=== PATIENT | female | born 1945 | race Caucasian/White ===

== ENCOUNTER 2020-06-04 11:38 | Outpatient (CLI) | payer MEDICARE, SELFPAY ==
[2020-06-04 12:13] LABS: Basophils Percent Auto 0.4 % (0.2-1.2); Eosinophils Absolute Auto 0.1 K/mm3 (0-0.3); Eosinophils Percent Auto 1.3 % (0-4.4); Hemoglobin 14.1 g/dL (12.0-15.0); Immature Granulocyte Absolute 0.06 K/mm3 (0.00-0.031); Immature Granulocyte Percent A 0.7 % (0-0.5); Lymphocytes Absolute Auto 1.91 K/mm3 (0.9-3.2); Lymphocytes Percent Auto 20.8 % (18.3-44.2); Mean Corpuscular HGB Conc 33.6 g/dl (32-36); Mean Corpuscular Hemoglobin 28.5 pg (26-34); Mean Platelet Volume 9.8 fl (7.4-10.4); Monocytes Absolute Auto 0.7 K/mm3 (0.1-0.6); Monocytes Percent Auto 7.1 % (2.6-8.5); Neutrophils Absolute Auto 6.4 K/mm3 (1.3-6.7); Neutrophils Percent Auto 69.7 % (45.5-73.1); Platelet Count Result 264 k/mm3 (150-375); Red Blood Count 4.94 M/mm3 (4.2-5.4); Red Cell Distribution Width 13.1 % (11.5-14.5); White Blood Count 9.2 K/mm3 (4.5-10.0)
[2020-06-04 12:28] LABS: Alanine Aminotransferase 17 U/L (4-35); Albumin Level 4.3 g/dL (3.5-5.1); Alkaline Phosphatase 59 U/L (38-126); Anion Gap 8 mmol/L (8-16); Aspartate Amino Transferase 19 U/L (14-36); Bilirubin,Total 0.2 mg/dL (0.2-1.3); Blood Urea Nitrogen 22 mg/dL (7-17); Calcium 8.9 mg/dL (8.4-10.2); Carbon Dioxide 34 mmol/L (22-30); Chloride 94 mmol/L (98-107); Estimated Glomerular Filt Rate > 60; Glucose 92 mg/dL (65-105); Hemoglobin A1C 5.5 % (<5.7); Sodium 136 mmol/L (137-145)
== END 2020-06-04 11:39 | disposition home or self-care (01) ==
LOC: ANHLAB 11:41
PROVIDERS: PCP Family Medicine; Visit Provider Physician Assistant
DX: R73.9 Hyperglycemia, unspecified (principal); R53.83 Other fatigue
CPT/HCPCS: 36415; 80053; 83036; 84443; 85025

== ENCOUNTER 2020-07-13 08:31 | Outpatient (CLI) | payer MEDICARE, OTHER, SELFPAY ==
[2020-07-13 09:12] LABS: Cholesterol 191 mg/dL (0-200); HDL Direct 39 mg/dL; Triglycerides 269 mg/dL (<150)
[2020-07-13 09:24] LABS: LDL Cholesterol Direct 115 mg/dL
[2020-07-13 10:19] LABS: Folic Acid 9.4 ng/mL (2.76->20)
== END 2020-07-13 08:32 | disposition home or self-care (01) ==
PROVIDERS: PCP Family Medicine; Visit Provider Family Medicine
DX: E03.9 Hypothyroidism, unspecified (principal); R53.83 Other fatigue; E78.2 Mixed hyperlipidemia
CPT/HCPCS: 36415; 80061; 82607; 82746; 84443

== ENCOUNTER 2020-08-29 13:32 | Outpatient (CLI) | payer MEDICARE, OTHER, SELFPAY | END 2020-08-29 13:33 | disposition home or self-care (01) | PROVIDERS: PCP Family Medicine; Visit Provider Family Medicine | DX: E03.9 Hypothyroidism, unspecified (principal) | CPT/HCPCS: 36415; 84443 ==

== ENCOUNTER 2020-10-03 15:02 | Outpatient (CLI) | payer MEDICARE, OTHER, SELFPAY ==
[2020-10-03 16:09] LABS: Thyroid Stimulating Hormone 0.648 uIU/mL (0.465-4.680)
== END 2020-10-03 15:03 | disposition home or self-care (01) ==
LOC: ANHLAB 15:04
PROVIDERS: PCP Family Medicine; Visit Provider Family Medicine
DX: E03.9 Hypothyroidism, unspecified (principal)
CPT/HCPCS: 36415; 84443

== ENCOUNTER 2021-01-09 11:18 | Outpatient (CLI) | payer MEDICARE, OTHER, SELFPAY ==
--- NOTE | ~2021-01-09 | XR_ITS ---
XR lumbar spine 2-3V DATE: 01/09/2021 11:38 INDICATION: Chronic low back pain TECHNIQUE: AP, lateral, coned lateral lumbosacral views COMPARISON: 08/15/2016 lumbar spine FINDINGS: Multiple calcified faceted gallstones are noted. There is mild dextroscoliosis of the lumbar spine. There is moderate to moderately severe degenerative disc disease of the lumbar spine, most pronounced on the left at L3-4. No fracture or bone destruction or spondylolisthesis. The lumbar pedicles are intact. The sacroiliac joints are intact. IMPRESSION: Mild dextroscoliosis Multilevel degenerative disc disease Cholelithiasis Reviewed, dictated and finalized at location A.
== END 2021-01-09 11:19 | disposition home or self-care (01) ==
LOC: ANHIMG 11:25
PROVIDERS: PCP Family Medicine; Visit Provider Family Medicine
DX: M51.36 Other intervertebral disc degeneration, lumbar region (principal); K80.20 Calculus of gallbladder without cholecystitis without obstruction
CPT/HCPCS: 72100

== ENCOUNTER 2021-01-14 09:23 | Outpatient (CLI) | payer MEDICARE, OTHER, SELFPAY ==
[2021-01-14 10:00] LABS: Hematocrit 44.3 % (37.0-47.0); Hemoglobin 14.7 g/dL (12.0-15.0); Mean Corpuscular HGB Conc 33.2 g/dl (32-36); Mean Corpuscular Volume 87.4 fl (80-100); Mean Platelet Volume 9.9 fl (7.4-10.4); Platelet Count Result 273 k/mm3 (150-375); Red Blood Count 5.07 M/mm3 (4.2-5.4); Red Cell Distribution Width 13.1 % (11.5-14.5); White Blood Count 5.9 K/mm3 (4.5-10.0)
[2021-01-14 10:05] LABS: Add Urine Microscopic? YES; Appearance Urine Clear (Clear); Bilirubin Urine Negative (Negative); Blood Urine Negative (Negative); Color Urine Yellow (Yellow); Glucose Urine UA Negative (Negative); Ketones Urine Negative (Negative); Leukocyte Esterase Ur 3+ LEU/UL (NEGATIVE); Mucus Urine Rare /lpf; Nitrate Urine Negative (Negative); Protein Urine Negative (Negative); RBC Urine 0-2 /hpf (0-2); Specific Grav Ur 1.019 (1.001-1.035); Squamous Epithelial Cell Urine Few /hpf (Few); Urobilinogen Urine Negative mg/dL (<2.0)
[2021-01-14 10:15] LABS: Alanine Aminotransferase 20 U/L (4-35); Albumin Level 4.6 g/dL (3.5-5.1); Alkaline Phosphatase 50 U/L (38-126); Anion Gap 8 mmol/L (8-16); Aspartate Amino Transferase 23 U/L (14-36); Bilirubin,Total 0.4 mg/dL (0.2-1.3); Blood Urea Nitrogen 21 mg/dL (7-17); Calcium 9.6 mg/dL (8.4-10.2); Carbon Dioxide 32 mmol/L (22-30); Chloride 99 mmol/L (98-107); Cholesterol 208 mg/dL (0-200); Estimated Glomerular Filt Rate 49; Glucose 96 mg/dL (65-105); HDL Direct 41 mg/dL; Potassium 3.8 mmol/L (3.4-5.0); Sodium 139 mmol/L (137-145); Triglycerides 167 mg/dL (<150)
[2021-01-14 10:25] LABS: LDL Cholesterol Direct 128 mg/dL
[2021-01-14 11:20] LABS: Folic Acid 16.2 ng/mL (2.76->20)
== END 2021-01-14 09:24 | disposition home or self-care (01) ==
LOC: ANHLAB 09:32
PROVIDERS: PCP Family Medicine; Visit Provider Family Medicine
DX: E03.9 Hypothyroidism, unspecified (principal); E78.00 Pure hypercholesterolemia, unspecified; I10 Essential (primary) hypertension; R53.83 Other fatigue
CPT/HCPCS: 36415; 80053; 80061; 81001; 82607; 82746; 84443; 85027

== ENCOUNTER 2021-02-28 15:44 | Outpatient (CLI) | payer MEDICARE, OTHER, SELFPAY ==
[2021-02-28 16:41] LABS: Add Urine Microscopic? NO; Appearance Urine Clear (Clear); Bilirubin Urine Negative (Negative); Blood Urine Negative (Negative); Color Urine Yellow (Yellow); Glucose Urine UA Negative (Negative); Ketones Urine Negative (Negative); Leukocyte Esterase Ur Negative LEU/UL (NEGATIVE); Nitrate Urine Negative (Negative); Protein Urine Negative (Negative); Specific Grav Ur 1.009 (1.001-1.035); Urobilinogen Urine Negative mg/dL (<2.0)
[2021-02-28 16:54] LABS: Alanine Aminotransferase 19 U/L (4-35); Albumin Level 4.5 g/dL (3.5-5.1); Alkaline Phosphatase 54 U/L (38-126); Anion Gap 7 mmol/L (8-16); Aspartate Amino Transferase 31 U/L (14-36); Bilirubin,Total 0.4 mg/dL (0.2-1.3); Blood Urea Nitrogen 17 mg/dL (7-17); Calcium 9.4 mg/dL (8.4-10.2); Carbon Dioxide 29 mmol/L (22-30); Chloride 105 mmol/L (98-107); Estimated Glomerular Filt Rate > 60; Glucose 92 mg/dL (65-105); Potassium 4.5 mmol/L (3.4-5.0); Sodium 141 mmol/L (137-145)
== END 2021-02-28 15:45 | disposition home or self-care (01) ==
LOC: ANHLAB 15:47
PROVIDERS: PCP Family Medicine; Visit Provider Nurse Practitioner Family
DX: N39.0 Urinary tract infection, site not specified (principal); R94.4 Abnormal results of kidney function studies
CPT/HCPCS: 36415; 80053; 81003; 87086

== ENCOUNTER → 2021-03-27 08:01 | Outpatient (CLI) | payer MEDICARE, OTHER, SELFPAY ==
--- NOTE | ~2021-03-27 | US_ITS ---
EXAMINATION: US right upper quadrant EXAM DATE: 03/27/2021 08:41 INDICATION: R10.11 - Right upper quadrant pain . TECHNIQUE: Multiple grayscale and Doppler images of the abdomen right upper quadrant were obtained (b y a technologist who performed the scan) and subsequently reviewed. There is no prior study for serene knapp. FINDINGS: The pancreatic head and body are normal in appearance. The pancreatic tail is not visualized. Mildl y echogenic liver parenchyma, hepatic steatosis. There are no focal liver lesions identified. Ther e is no evidence of intrahepatic biliary duct dilation. Portal venous flow was seen in the hepatoped al, normal direction and has normal Doppler waveform. No right-sided hydronephrosis. Common bile duct measures 4 mm, which is normal. The gallbladder wall is normal in thickness, with ex pected amount of distention. No sonographic evidence of pericholecystic fluid. There is cholelithia sis. Technologist performing exam reports patient did not demonstrate sonographic Alegre's sign. P trent note that this sign is less reliable in patients who have received pain medication. IMPRESSION: 1. Mildly echogenic liver, hepatic steatosis. 2. Cholelithiasis. Reviewed, dictated and finalized at location B.
== END ==
PROVIDERS: PCP Family Medicine; Visit Provider Nurse Practitioner Family
DX: R10.11 Right upper quadrant pain (principal); K80.20 Calculus of gallbladder without cholecystitis without obstruction; K76.0 Fatty (change of) liver, not elsewhere classified
CPT/HCPCS: 76705

== ENCOUNTER 2021-07-03 15:11 | Outpatient (CLI) | payer MEDICARE, OTHER, SELFPAY ==
[2021-07-03 16:42] LABS: Alanine Aminotransferase 23 U/L (4-35); Albumin Level 4.8 g/dL (3.5-5.1); Alkaline Phosphatase 62 U/L (38-126); Anion Gap 11 mmol/L (8-16); Aspartate Amino Transferase 25 U/L (14-36); Bilirubin,Total 0.5 mg/dL (0.2-1.3); Blood Urea Nitrogen 14 mg/dL (7-17); Calcium 9.5 mg/dL (8.4-10.2); Carbon Dioxide 28 mmol/L (22-30); Chloride 100 mmol/L (98-107); Estimated Glomerular Filt Rate > 60; Glucose 88 mg/dL (65-110); Potassium 4.5 mmol/L (3.4-5.0); Sodium 139 mmol/L (137-145)
== END 2021-07-03 15:12 | disposition home or self-care (01) ==
LOC: ANHLAB 15:12
PROVIDERS: PCP Family Medicine; Visit Provider Family Medicine
DX: E78.00 Pure hypercholesterolemia, unspecified (principal); E03.9 Hypothyroidism, unspecified; I10 Essential (primary) hypertension
CPT/HCPCS: 36415; 80053; 84443

== ENCOUNTER 2021-08-09 09:25 | Outpatient (CLI) | payer MEDICARE, OTHER, SELFPAY | END 2021-08-09 09:26 | disposition home or self-care (01) | PROVIDERS: PCP Family Medicine; Visit Provider Physician Assistant | DX: E03.9 Hypothyroidism, unspecified (principal) | CPT/HCPCS: 36415; 84443 ==

== ENCOUNTER → 2021-11-05 14:11 | Outpatient (CLI) | payer MEDICARE, OTHER, SELFPAY ==
--- NOTE | ~2021-11-05 | MR_ITS ---
EXAMINATION: MR lumbar spine wo con DATE: 11/05/2021 15:04 INDICATION: Lumbar spondylosis. TECHNIQUE: Magnetic resonance imaging (MRI) of the lumbar spine was performed without intravenous con trast. Sequences included sagittal T2-weighted FSE, sagittal T2-weighted FS FSE, sagittal T1-weighted FSE, and axial T2-weighted FSE. COMPARISON: Lumbar spine MRI 02/25/2016 FINDINGS: There is 5 degrees dextrocurvature of lumbar spine. There are Schmorl's nodes at most level s. There is moderately decreased disc height at L2-L3, L3-L4, and L5-S1 and mildly decreased disc hei ght at L1-L2 and L4-L5 with endplate remodeling. The distal spinal cord signal intensity is normal. T he conus medullaris is at L1. The following disc levels are specifically discussed: L1-L2: The disc is bulging. There is mild right facet joint osteoarthritis. There is mild right neura l foraminal stenosis. There is mild central canal stenosis. L2-L3: The disc is bulging and has an annular fissure. There is moderate right and mild left facet beatriz int osteoarthritis. There is mild bilateral neural foraminal stenosis. There is mild central canal st enosis. L3-L4: The disc is bulging and has an annular fissure. There is severe bilateral facet joint osteoart hritis. There is mild right and moderate left neural foraminal stenosis. There is mild central canal stenosis. L4-L5: The disc is bulging and has an annular fissure. There is moderate bilateral facet joint osteoa rthritis. There is moderate bilateral neural foraminal stenosis. There is mild central canal stenosis . L5-S1: The disc is bulging and has an annular fissure. There is severe right and moderate left facet joint osteoarthritis. There is mild bilateral neural foraminal stenosis. There is mild central canal stenosis. IMPRESSION: 1. Moderate lumbar spondylosis, worsened from 02/25/2016. Reviewed, dictated and finalized at location A. TENDER
== END ==
PROVIDERS: Visit Provider Nurse Practitioner Adult Health
DX: M47.816 Spondylosis without myelopathy or radiculopathy, lumbar region (principal)
CPT/HCPCS: 72148

== ENCOUNTER 2022-01-08 08:04 | Outpatient (CLI) | payer MEDICARE, OTHER, SELFPAY ==
[2022-01-08 08:36] LABS: Hematocrit 43.3 % (37.0-47.0); Hemoglobin 14.3 g/dL (12.0-15.0); Immature Granulocyte Percent A 0.4 % (0-0.5); Mean Corpuscular Hemoglobin 28.9 pg (26-34); Mean Corpuscular Volume 87.7 fl (80-100); Mean Platelet Volume 9.8 fl (7.4-10.4); Platelet Count Result 260 k/mm3 (150-375); Red Blood Count 4.94 M/mm3 (4.2-5.4); Red Cell Distribution Width 13.2 % (11.5-14.5)
[2022-01-08 08:37] LABS: Basophils Absolute Auto 0.1 K/mm3 (0.0-0.1); Basophils Percent Auto 0.9 % (0.2-1.2); Eosinophils Absolute Auto 0.2 K/mm3 (0-0.3); Eosinophils Percent Auto 2.7 % (0-4.4); Immature Granulocyte Absolute 0.03 K/mm3 (0.00-0.031); Lymphocytes Absolute Auto 2.15 K/mm3 (0.9-3.2); Lymphocytes Percent Auto 30.7 % (18.3-44.2); Monocytes Absolute Auto 0.7 K/mm3 (0.1-0.6); Neutrophils Absolute Auto 3.9 K/mm3 (1.3-6.7); Neutrophils Percent Auto 55.3 % (45.5-73.1)
[2022-01-08 08:39] LABS: Appearance Urine Clear (Clear); Bilirubin Urine Negative (Negative); Blood Urine Negative (Negative); Color Urine Yellow (Yellow); Glucose Urine UA Negative (Negative); Ketones Urine Negative (Negative); Leukocyte Esterase Ur 1+ LEU/UL (NEGATIVE); Nitrate Urine Negative (Negative); Protein Urine Negative (Negative); Urobilinogen Urine 0.2 mg/dL (<2.0); pH Urine 6.5 (5.0-9.0)
[2022-01-08 08:48] LABS: Bacteria Urine Trace /hpf; Mucus Urine Rare /lpf; RBC Urine 0-2 /hpf (0-2); Squamous Epithelial Cell Urine Occasional /hpf (Few); WBC Urine 16-20 /hpf (0-3)
[2022-01-08 08:48] LABS: Alanine Aminotransferase 34 U/L (6-35); Albumin Level 4.4 g/dL (3.5-5.1); Alkaline Phosphatase 53 U/L (38-126); Anion Gap 7 mmol/L (8-16); Aspartate Amino Transferase 34 U/L (14-36); Bilirubin,Total 0.3 mg/dL (0.2-1.3); Blood Urea Nitrogen 15 mg/dL (7-17); Calcium 8.8 mg/dL (8.4-10.2); Carbon Dioxide 31 mmol/L (22-30); Chloride 101 mmol/L (98-107); Cholesterol 217 mg/dL (0-200); Estimated Glomerular Filt Rate 54; Glucose 99 mg/dL (65-110); HDL Direct 39 mg/dL; Potassium 3.6 mmol/L (3.4-5.0); Sodium 139 mmol/L (137-145); Triglycerides 253 mg/dL (<150)
[2022-01-08 08:50] LABS: Add Urine Microscopic? YES
[2022-01-08 08:59] LABS: LDL Cholesterol Direct 118 mg/dL
== END 2022-01-08 08:05 | disposition home or self-care (01) ==
PROVIDERS: PCP Family Medicine; Referring Provider Internal Medicine Endocrinology, Diabetes & Metabolism; Visit Provider Nurse Practitioner Family
DX: E03.9 Hypothyroidism, unspecified (principal); E78.00 Pure hypercholesterolemia, unspecified; E78.2 Mixed hyperlipidemia; I10 Essential (primary) hypertension; K21.9 Gastro-esophageal reflux disease without esophagitis; N39.0 Urinary tract infection, site not specified
CPT/HCPCS: 36415; 80053; 80061; 81001; 84443; 85025

== ENCOUNTER 2022-02-14 14:07 | Emergency (ER) | payer MEDICARE, OTHER, SELFPAY ==
[2022-02-14] VITALS (17 sets, daily range): BP systolic 104–137; BP diastolic 59–74; PULSE 61–77; RESP 16–23; TEMP 36.1; O2SAT 93–97
--- NOTE | ~2022-02-14 | XR_ITS ---
EXAMINATION: XR chest 2V Exam Date/Time: 02/14/2022 14:35 CDT HISTORY: NAUSEA VOMITING FOR 1 WEEK Comparison: 10/26/2018. RESULT: Lines, tubes, and devices: None. Lungs and pleura: Streaky opacities in the left lung base. Bibasilar scar. No effusion. Senescent ch anges. Cardiomediastinal silhouette: Stable cardiomediastinal silhouette. Other: No acute osseous or upper abdominal finding. IMPRESSION: Left basilar opacities most likely represent atelectasis. Infection not excluded. Reviewed, dictated and finalized at location K. IMPRESSION: Left basilar opacities most likely represent atelectasis. Infection not exclude d.
--- NOTE | 2022-02-14 14:10 | ECG_ITS ---
Measurements Intervals [place] Rate: 75 P: 30 TX: 179 QRS: 45 QRSD: 103 T: 68 QT: 426 QTc: 476 Interpretive Statements SINUS RHYTHM INCOMPLETE RIGHT BUNDLE BRANCH BLOCK [90+ ms QRS DURATION, TERMINAL R IN V1/V2, 40+ ms S IN I/aVL/V4/V5/V6] ST DEVIATION AND MODERATE T-WAVE ABNORMALITY, CONSIDER ANTEROLATERAL ISCHEMIA [-0.1+ mV T WAVE IN V3-V6] NO PREVIOUS ECG AVAILABLE FOR COMPARISON Electronically Signed On 02-14-2022 14:46:45 CDT by Jose Nielsen M.D.
[2022-02-14 14:31] LABS: Basophils Percent Auto 0.3 % (0.2-1.2); Hematocrit 48.8 % (37.0-47.0); Hemoglobin 16.2 g/dL (12.0-15.0); Immature Granulocyte Absolute 0.04 K/mm3 (0.00-0.031); Immature Granulocyte Percent A 0.6 % (0-0.5); Lymphocytes Absolute Auto 0.73 K/mm3 (0.9-3.2); Lymphocytes Percent Auto 11.1 % (18.3-44.2); Mean Corpuscular HGB Conc 33.2 g/dl (32-36); Mean Corpuscular Hemoglobin 28.8 pg (26-34); Mean Corpuscular Volume 86.8 fl (80-100); Monocytes Percent Auto 14.6 % (2.6-8.5); Neutrophils Absolute Auto 4.8 K/mm3 (1.3-6.7); Neutrophils Percent Auto 73.4 % (45.5-73.1); Platelet Count Result 252 k/mm3 (150-375); Red Blood Count 5.62 M/mm3 (4.2-5.4); Red Cell Distribution Width 13.2 % (11.5-14.5); White Blood Count 6.6 K/mm3 (4.5-10.0)
[2022-02-14 14:42] LABS: Alanine Aminotransferase 54 U/L (6-35); Alkaline Phosphatase 53 U/L (38-126); Anion Gap 10 mmol/L (8-16); Aspartate Amino Transferase 57 U/L (14-36); Bilirubin,Total 0.3 mg/dL (0.2-1.3); Blood Urea Nitrogen 25 mg/dL (7-17); Calcium 8.5 mg/dL (8.4-10.2); Carbon Dioxide 28 mmol/L (22-30); Chloride 94 mmol/L (98-107); Estimated CRCL calculation 35 ml/min; Estimated Glomerular Filt Rate 40; Glucose 109 mg/dL (65-110); Lipase 310 U/L (23-300); Potassium 3.6 mmol/L (3.4-5.0); Sodium 132 mmol/L (137-145)
[2022-02-14 15:59] LABS: Appearance Urine Cloudy (Clear); Bilirubin Urine 2+ (Negative); Color Urine Yellow (Yellow); Glucose Urine UA Negative (Negative); Ketones Urine Trace mg/dL (Negative); Leukocyte Esterase Ur Trace LEU/UL (Negative); Nitrate Urine Negative (Negative); Protein Urine 2+ mg/dL (Negative); Specific Grav Ur 1.025 (1.001-1.035); pH Urine 5.5 (5.0-9.0)
[2022-02-14 16:00] LABS: Add Urine Microscopic? YES; Blood Urine Trace-Intact (Negative)
[2022-02-14 16:05] LABS: Bacteria Urine Trace /hpf; Hyaline Casts Urine 50+ /lpf; Mucus Urine Heavy /lpf; Squamous Epithelial Cell Urine Many /hpf (Few); WBC Urine 31-50 /hpf
[2022-02-14] MEDS: SODIUM CHLORIDE 0.9% IV 1,000 ML 999 ML IV CONT (16:14)
--- NOTE | 2022-02-14 17:02 | ED.NAVMDI ---
HPI - Nausea/Vomiting/Diarrhea General Chief complaint: Nausea/Vomiting/Diarrhea Stated complaint: Nausea/weakness/diarrhea Time Seen by Provider: 02/14/22 15:30 History of Present Illness HPI Narrative: Patient is a 76-year-old female who presents ER with fatigue and weakness. Patient was exposed to COVID on 02/08/2022. She began to feel symptomatic on 02/10/2022. And tested positive for COVID on 02/12/2022. She has been feeling fatigued. She also has had some nausea and vomiting today. No runny nose or sore throat or cough. She is feeling fatigued. She has had some diarrhea as well. Has been taking antiviral medication for her COVID. Related Data Home Medications Medication Instructions Recorded Confirmed cholecalciferol (vitamin D3) 125 125 mcg PO DAILY 01/09/21 07/03/21 mcg (5,000 unit) capsule Allergies Allergy/AdvReac Type Severity Reaction Status Date / Time prednisone Allergy Unknown Redness of Verified 01/15/22 10:23 Skin codeine AdvReac Unknown Nausea and Verified 01/15/22 10:23 Vomiting PMFSH Past Medical History Medical History Anxiety Arthritis GERD (gastroesophageal reflux disease) Hemorrhoids Hypertension Medial epicondylitis of right elbow Vertigo Surgical History Surgical History History of cardiac radiofrequency ablation Status post de Quervain's release surgery Status post hysterectomy Family History Family History Father Hypertension Family history of coronary artery disease Mother Hypertension Cerebrovascular accident Family history of diabetes mellitus in first degree relative Family history of coronary artery disease Sibling Family history of lung cancer Cerebrovascular accident Other Diabetes mellitus Family history of arthritis Social History Social History Smoking packs per day: 0.25 Smoking cigarettes per day: 5.0 Years smoked: 1 Smoking pack-years: 0.25 Smoking status: Former smoker Tobacco type: cigarettes Second hand tobacco smoke exposure: No Smoking end date: 08/31/79 Alcohol intake: never Substance use: never Substance use type: does not use Gender identity (if verbalized by the patient): Female Sexual Orientation (if Verbalized by the Patient): Straight or Heterosexual Exam Narrative: GENERAL: Well-appearing, well-nourished, and in no acute distress. HEAD: Normocephalic, atraumatic. CHEST: Clear to auscultation. No respiratory distress. HEART: Regular rate and rhythm. Normal peripheral pulses. ABDOMEN: Soft, nontender, nondistended. EXTREMITIES: Normal range of motion. No edema. SKIN: Warm, dry, no rash. NEURO: Alert and oriented x3. PSYCH: Normal mood and affect. Course Course Emergency Course: Patient hydrated. Feels improved. Discharge home with antiemetics. During certainly has appearance of contamination but given her fatigue this could be contributing to her illness. Will prescribe cephalexin for home. Vital Signs Vital signs: Vital Signs Temperature 97 F L 02/14/22 14:12 Pulse Rate 76 02/14/22 14:12 Respiratory Rate 16 02/14/22 14:12 Blood Pressure 104/59 L 02/14/22 14:12 Pulse Oximetry 97 02/14/22 14:12 Oxygen Delivery Room Air 02/14/22 14:12 Temperature 97 F L 02/14/22 14:12 Pulse Rate 61 02/14/22 16:45 Respiratory Rate 20 02/14/22 16:45 Blood Pressure 132/65 02/14/22 16:31 Pulse Oximetry 95 02/14/22 16:02 Oxygen Delivery Room Air 02/14/22 14:12 MDM - Nausea/Vomiting/Diarrhea Lab Data Result diagrams: 02/14/22 14:25 02/14/22 14:25 Labs: Lab Results 02/14/22 02/14/22 02/14/22 Range/Units 14:25 14:25 15:48 WBC 6.6 (4.5-10.0) K/mm3 RBC 5.62 H (4.2-5.4) M/mm3 H
== END 2022-02-14 17:34 | disposition home or self-care (01) ==
PROVIDERS: Emergency Provider Emergency Medicine; PCP Family Medicine
DX: U07.1 COVID-19 (principal); N39.0 Urinary tract infection, site not specified; E86.0 Dehydration; I10 Essential (primary) hypertension; M19.90 Unspecified osteoarthritis, unspecified site; K21.9 Gastro-esophageal reflux disease without esophagitis; Z87.891 Personal history of nicotine dependence; I45.10 Unspecified right bundle-branch block; R94.31 Abnormal electrocardiogram [ECG] [EKG]; R91.8 Other nonspecific abnormal finding of lung field
CPT/HCPCS: 36415; 71046; 80053; 81001; 83690; 85025; 87086; 87088; 93005; 96360; 99283; J7030

== ENCOUNTER 2022-02-25 11:45 | Outpatient (CLI) | payer MEDICARE, OTHER, SELFPAY ==
[2022-02-25 12:30] LABS: Appearance Urine Clear (Clear); Bilirubin Urine Negative (Negative); Blood Urine Negative (Negative); Color Urine Yellow (Yellow); Glucose Urine UA Negative (Negative); Ketones Urine Negative (Negative); Leukocyte Esterase Ur Negative LEU/UL (NEGATIVE); Nitrate Urine Negative (Negative); Protein Urine Negative (Negative); Specific Grav Ur 1.015 (1.001-1.035); Urobilinogen Urine 0.2 mg/dL (<2.0); pH Urine 7.5 (5.0-9.0)
[2022-02-25 12:39] LABS: Add Urine Microscopic? NO
== END 2022-02-25 11:46 | disposition home or self-care (01) ==
PROVIDERS: PCP Family Medicine; Visit Provider Nurse Practitioner Family
DX: N39.0 Urinary tract infection, site not specified (principal)
CPT/HCPCS: 81003; 87086

== ENCOUNTER 2022-06-11 11:55 | Outpatient (CLI) | payer MEDICARE, OTHER, SELFPAY ==
[2022-06-11 12:32] LABS: Alanine Aminotransferase 25 U/L (6-35); Albumin Level 4.4 g/dL (3.5-5.1); Alkaline Phosphatase 54 U/L (38-126); Anion Gap 11 mmol/L (8-16); Aspartate Amino Transferase 23 U/L (14-36); Bilirubin,Total 0.2 mg/dL (0.2-1.3); Blood Urea Nitrogen 14 mg/dL (7-17); Calcium 9.3 mg/dL (8.4-10.2); Carbon Dioxide 27 mmol/L (22-30); Chloride 101 mmol/L (98-107); Estimated Glomerular Filt Rate > 60; Glucose 111 mg/dL (65-110); Potassium 3.6 mmol/L (3.4-5.0); Sodium 139 mmol/L (137-145)
== END 2022-06-11 11:56 | disposition home or self-care (01) ==
PROVIDERS: PCP Family Medicine; Visit Provider Physician Assistant
DX: I10 Essential (primary) hypertension (principal)
CPT/HCPCS: 36415; 80053

== ENCOUNTER 2022-06-30 14:52 | Outpatient (CLI) | payer MEDICARE, OTHER, SELFPAY ==
[2022-06-30 16:01] LABS: Alanine Aminotransferase 23 U/L (6-35); Albumin Level 4.4 g/dL (3.5-5.1); Alkaline Phosphatase 54 U/L (38-126); Anion Gap 7 mmol/L (8-16); Aspartate Amino Transferase 22 U/L (14-36); Bilirubin,Total 0.3 mg/dL (0.2-1.3); Blood Urea Nitrogen 14 mg/dL (7-17); Carbon Dioxide 32 mmol/L (22-30); Chloride 99 mmol/L (98-107); Estimated Glomerular Filt Rate > 60; Glucose 98 mg/dL (65-110); Potassium 3.9 mmol/L (3.4-5.0); Sodium 138 mmol/L (137-145)
[2022-06-30 17:06] LABS: Folic Acid 13.9 ng/mL (2.76->20)
== END 2022-06-30 14:53 | disposition home or self-care (01) ==
PROVIDERS: PCP Family Medicine; Visit Provider Family Medicine
DX: R53.83 Other fatigue (principal); E78.00 Pure hypercholesterolemia, unspecified
CPT/HCPCS: 36415; 80053; 82607; 82746; 84443

== ENCOUNTER 2022-12-16 09:36 | Outpatient (CLI) | payer MEDICARE, OTHER, SELFPAY ==
[2022-12-16 10:36] LABS: Alanine Aminotransferase 26 U/L (6-35); Albumin Level 4.7 g/dL (3.5-5.1); Alkaline Phosphatase 42 U/L (38-126); Anion Gap 7 mmol/L (8-16); Aspartate Amino Transferase 25 U/L (14-36); Bilirubin,Total 0.6 mg/dL (0.2-1.3); Blood Urea Nitrogen 19 mg/dL (7-17); Calcium 9.4 mg/dL (8.4-10.2); Carbon Dioxide 32 mmol/L (22-30); Chloride 100 mmol/L (98-107); Estimated Glomerular Filt Rate > 60; Glucose 97 mg/dL (65-110); Sodium 139 mmol/L (137-145)
[2022-12-16 11:08] LABS: Thyroid Stimulating Hormone 0.327 uIU/mL (0.465-4.680)
== END 2022-12-16 09:37 | disposition home or self-care (01) ==
PROVIDERS: PCP Family Medicine; Visit Provider Family Medicine
DX: E03.9 Hypothyroidism, unspecified (principal); I10 Essential (primary) hypertension; E78.00 Pure hypercholesterolemia, unspecified
CPT/HCPCS: 36415; 80053; 84443

== ENCOUNTER 2023-01-27 12:11 | Outpatient (CLI) | payer MEDICARE, OTHER, SELFPAY | END 2023-01-27 12:12 | disposition home or self-care (01) | PROVIDERS: PCP Family Medicine; Visit Provider Family Medicine | DX: E78.00 Pure hypercholesterolemia, unspecified (principal); E03.9 Hypothyroidism, unspecified | CPT/HCPCS: 36415; 84443 ==

== ENCOUNTER 2023-03-19 11:14 | Outpatient (CLI) | payer MEDICARE, OTHER, SELFPAY ==
[2023-03-19 12:20] LABS: Hematocrit 45.3 % (37.0-47.0); Hemoglobin 14.7 g/dL (12.0-15.0); Mean Corpuscular HGB Conc 32.5 g/dl (32-36); Mean Corpuscular Hemoglobin 29.1 pg (26-34); Mean Corpuscular Volume 89.5 fl (80-100); Mean Platelet Volume 9.9 fl (7.4-10.4); Platelet Count Result 274 k/mm3 (150-375); Red Blood Count 5.06 M/mm3 (4.2-5.4); Red Cell Distribution Width 13.3 % (11.5-14.5); White Blood Count 7.3 K/mm3 (4.5-10.0)
[2023-03-19 12:29] LABS: Alanine Aminotransferase 25 U/L (6-35); Albumin Level 4.4 g/dL (3.5-5.1); Alkaline Phosphatase 43 U/L (38-126); Anion Gap 10 mmol/L (8-16); Aspartate Amino Transferase 22 U/L (14-36); Bilirubin,Total 0.3 mg/dL (0.2-1.3); Blood Urea Nitrogen 23 mg/dL (7-17); Calcium 9.1 mg/dL (8.4-10.2); Carbon Dioxide 29 mmol/L (22-30); Chloride 101 mmol/L (98-107); Cholesterol 196 mg/dL (0-200); Estimated Glomerular Filt Rate > 60; Glucose 93 mg/dL (65-110); HDL Direct 40 mg/dL; Potassium 3.9 mmol/L (3.4-5.0); Sodium 140 mmol/L (137-145); Triglycerides 180 mg/dL (<150)
[2023-03-19 12:40] LABS: LDL Cholesterol Direct 111 mg/dL
[2023-03-19 12:58] LABS: Thyroid Stimulating Hormone 0.887 uIU/mL (0.465-4.680)
[2023-03-19 21:27] LABS: Hemoglobin A1C 5.8 % (<5.7)
== END 2023-03-19 11:15 | disposition home or self-care (01) ==
PROVIDERS: PCP Family Medicine; Visit Provider Family Medicine
DX: E78.00 Pure hypercholesterolemia, unspecified (principal); I10 Essential (primary) hypertension; R53.83 Other fatigue; R73.01 Impaired fasting glucose; E03.9 Hypothyroidism, unspecified
CPT/HCPCS: 36415; 80053; 80061; 83036; 84443; 85027

== ENCOUNTER 2023-04-23 14:51 | Outpatient (CLI) | payer MEDICARE, OTHER, SELFPAY ==
--- NOTE | ~2023-04-23 | MM_ITS ---
EXAMINATION: MM screening nannette BI w [place] HISTORY: Screening mammogram TECHNIQUE: Craniocaudal and mediolateral oblique 3-D tomosynthesis images were obtained and synthetic 2-D images were generated. CAD analysis was submitted and interpreted. COMPARISON: 09/01/2019 bilateral screening mammogram examination BREAST PARENCHYMAL COMPOSITION: There are scattered areas of fibroglandular density. FINDINGS: There is no evidence of suspicious mass, calcification, or architectural distortion to sugg est malignancy in either breast. There has been no suspicious interval change. IMPRESSION: 1. No mammographic evidence of malignancy. 2. Recommend routine screening mammography in one year. BI-RADS Category 1: Negative Reviewed, dictated and finalized at location A.
--- NOTE | ~2023-04-23 | DEXA_ITS ---
Bone Density Report Name: AICHA DASILVA Age: 77 Sex: Female Ethnicity: White Date of : 1945 Indication: postmenopausal; screening for osteoporosis; height loss; cancer; hysterectomy; Referring Provider: ALFRED CRUZ Study: Bone densitometry was performed. Exam Date: April 23, 2023 Accession number: [id number] Bone Density: Region BMD T-score Z-score Classification AP Spine(L1, L2) 1.237 2.3 4.7 Normal Femoral Neck (Left) 0.824 -0.2 1.9 Normal Total Hip (Left) 0.980 0.3 2.2 Normal Femoral Neck (Right) 0.747 -0.9 1.2 Normal Total Hip (Right) 0.946 0.0 1.9 Normal Total Hip Mean 0.963 0.2 2.1 Normal World Health Organization criteria for BMD impression classify patients as: Normal (T-score at or above -1.0), Osteopenia (T-score between -1.0 and -2.5), or Osteoporosis (T-score at or below -2.5). 10-year Fracture Risk: FRAX not reported because: All T-scores for Spine Total, Hip Total, Femoral Neck at or above -1.0 Previous Exams: Region Exam Age BMD T-score BMD Change BMD Change Date g/cm2 vs Baseline vs Previous AP Spine (L1-L2) 04/23/2023 77 1.237 2.3 -0.013 (-1.1%) -0.013 (-1.1%) 08/30/2018 73 1.250 2.5 Total Hip(Left) 04/23/2023 77 0.980 0.3 0.022 (2.3%) 0.022 (2.3%) 08/30/2018 73 0.958 0.1 Total Hip(Right) 04/23/2023 77 0.946 0.0 -0.031 (-3.2%) -0.031 (-3.2%) 08/30/2018 73 0.978 0.3 *Denotes significance at 95% confidence level, LSC for AP Spine = 0.022 g/cm2, LSC for Total Hip = 0.027 g/cm2 Clinical Information Provided by Patient: Has used the following medications: Vitamin D Has the following medical conditions: Cancer, Hysterectomy Patient maximum height was 65 Menopause Age: 39 No regular weight bearing exercise Onset of menses at age 12 Number of children 2 Impression: The patient has normal bone mass. The BMD for the Total Hip(Right) decreased, changing by -3.2% since the last DXA exam. Discussion: BONE DENSITY IS ABOVE THE MINIMUM DESIRABLE LEVEL AT ALL SKELETAL SITES TESTED. This patient?s bone mineral density is above the minimum desirable level (T-score -1.0 or better) at all sites measured. The patient should follow a healthful lifestyle (good nutrition with adequate calcium and vitamin D, and appropriate weight-bearing exercise). Follow-Up: Consider repeating this study in 3 to 4 years to reassess this patient's status, or sooner if there is some new clinic
== END 2023-04-23 14:52 | disposition home or self-care (01) ==
LOC: ANHIMG 14:52
PROVIDERS: PCP Family Medicine; Visit Provider Family Medicine
DX: Z12.31 Encounter for screening mammogram for malignant neoplasm of breast (principal); Z78.0 Asymptomatic menopausal state
CPT/HCPCS: 77063; 77067; 77080

== ENCOUNTER 2023-05-15 10:19 | Outpatient (CLI) | payer MEDICARE, OTHER, SELFPAY ==
[2023-05-15 11:19] LABS: SARS-CoV-2 RNA PCR Negative (Negative)
== END 2023-05-15 10:20 | disposition home or self-care (01) ==
PROVIDERS: PCP Family Medicine; Visit Provider Family Medicine
DX: R05.9 Cough, unspecified (principal); Z20.822 Contact with and (suspected) exposure to COVID-19
CPT/HCPCS: 87635

== ENCOUNTER 2023-07-04 09:30 | Outpatient (CLI) | payer MEDICARE, OTHER, SELFPAY ==
--- NOTE | ~2023-07-04 | MR_ITS ---
MRI of the lumbar spine Clinical History: Back pain Technique: Axial T2-weighted images, and sagittal T1-weighted, T2-weighted, and T2 fat-sat images wer e acquired. COMPARISON: 11/05/2021 Findings: There is no fracture or subluxation of the lumbar spine. Osseous alignment is unchanged. No suspicious bone marrow signal abnormality seen. At L1-L2, there is moderate degenerative distended. There is mild disc bulge and mild facet arthropat hy. No central canal stenosis or definite neural foraminal narrowing. At L2-L3, there is moderate to advanced degenerative disc narrowing. There is disc bulge with moderat e facet arthropathy. There is minimal central canal stenosis. There is minimal right neural foraminal narrowing. Left neural foramen preserved. At L3-L4, there is advanced degenerative disc narrowing. There is disc bulge and advanced facet arthr opathy, left worse than right. There is no beatriz central canal stenosis. There is moderate left neura l foraminal narrowing, and minimal right neural foraminal narrowing. At L4-L5, there is advanced degenerative disc narrowing. There is disc bulge with severe facet arthro verna, resulting in severe central canal stenosis/thecal sac compression. There is moderate to severe left neural foraminal narrowing, and severe right neural foraminal narrowing. At L5-S1, there is advanced degenerative disc narrowing. There is minimal disc bulge and severe facet arthropathy. No central canal stenosis. There is severe bilateral neural foraminal narrowing. Paravertebral soft tissues are unremarkable. Impression: Severe degenerative spondylosis, as detailed above, worst at L4-L5. Reviewed, dictated and finalized at [facility]. F COOK Impression: Severe degenerative spondylosis, as detailed above, worst at L4-L5.
== END 2023-07-04 09:31 | disposition home or self-care (01) ==
PROVIDERS: PCP Family Medicine; Visit Provider Family Medicine
DX: M47.816 Spondylosis without myelopathy or radiculopathy, lumbar region (principal)
CPT/HCPCS: 72148

== ENCOUNTER 2023-08-17 09:49 | Outpatient (CLI) | payer MEDICARE, OTHER, SELFPAY ==
--- NOTE | 2023-08-17 14:31 | WPDSIXMINUTE ---
Six Minute Walk Procedure Procedure Performed Pulmonary Stress Test (6 min walk) Six Minute Walk Six Minute Walk: This is a 6 minute walk test. The test was performed and interpreted in accordance with the 2014 ERS/ATS task force guidelines. Findings: The patient's resting room air oxygen saturation measured by pulse oximetry was 96% and heart rate was 79 bpm. Patient ambulated for 274 meters and oxygen saturation remained 91 to 95%. Heart rate at the end of the study was 111 bpm. The patient did not qualify for supplemental oxygen at rest or with ambulation. There are no prior studies for comparison.
--- NOTE | 2023-08-17 14:32 | WPDPFTINT ---
PFT Procedure Performed PFT Procedure Performed Spirometry with Pre/Post Bronchodilator Plethysmography (Lung Vol) Diffusing Cap (DLCO) Flow Vol Loop PFT Interpretation This is a pulmonary function test with pre and post-bronchodilator spirometry, plethysmography and diffusing capacity. The test was performed and results interpreted in accordance with the 2019 and 2005 ATS/ERS Task Force guidelines respectively using the Global Lung Function Initiative-2012 reference equations. Patient demonstrated good effort and cooperation. Reproducibility criteria were met. The quality of the pre bronchodilator spirometry maneuver was Grade A and post bronchodilator spirometry maneuver was Grade A. Findings: Spirometry: The contour the inspiratory and expiratory flow tracing is normal. The pre bronchodilator FVC is 2.23 L, 82% predicted. The pre bronchodilator FEV1 is 1.57 L, 75% predicted. The pre bronchodilator FEV1: FVC ratio 70%. The post bronchodilator FVC is 2.33 L, representing a 4% increase. The post bronchodilator FEV1 is 1.71 L, representing a 9% increase. The post bronchodilator FEV1: FVC ratio 74%. Plethysmography: The total lung capacity is 4.30 L, 83% predicted. The functional residual capacity is 2.13 L, 71% predicted. The residual volume is 1.98 L, 83% predicted. Diffusing capacity: The diffusing capacity unadjusted for hemoglobin and carboxyhemoglobin is 15.2, 75% predicted. The diffusing capacity adjusted for alveolar volume is 3.91, 95% predicted. Impression: The spirometry is normal without evidence of an obstructive abnormality. There is no significant improvement after inhaling a single dose of albuterol. The lung volumes are normal. The diffusing capacity is normal. There are no prior studies for comparison
== END 2023-08-17 09:50 | disposition home or self-care (01) ==
LOC: ANHPFT 09:50
PROVIDERS: PCP Family Medicine; Visit Provider Physician Assistant
DX: R06.09 Other forms of dyspnea (principal)
CPT/HCPCS: 94060; 94618; 94726; 94729

== ENCOUNTER 2024-03-02 10:27 | Outpatient (CLI) | payer MEDICARE, SELFPAY ==
[2024-03-02 11:21] LABS: Appearance Urine Clear (Clear); Bacteria Urine None Seen /hpf; Bilirubin Urine Negative (Negative); Blood Urine Negative (Negative); Color Urine Yellow (Yellow); Glucose Urine UA Negative (Negative); Ketones Urine Negative (Negative); Leukocyte Esterase Ur 1+ LEU/UL (Negative); Need Manual Microscopic Reviewed; Nitrate Urine Negative (Negative); Non Pathogenic Casts 0-2; Protein Urine Trace mg/dL (Negative); RBC Urine 0-2 /hpf (0-2); Specific Grav Ur 1.009 (1.001-1.035); Squamous Epithelial Cell Urine None Seen /hpf (Few); Urobilinogen Urine 0.2 mg/dL (<2.0); pH Urine 6.5 (5.0-9.0)
[2024-03-02 11:22] LABS: Add Urine Microscopic? YES
[2024-03-02 11:26] LABS: Alanine Aminotransferase 19 U/L (6-35); Albumin Level 4.5 g/dL (3.5-5.1); Alkaline Phosphatase 48 U/L (38-126); Anion Gap 6 mmol/L (4-12); Aspartate Amino Transferase 21 U/L (14-36); Bilirubin,Total 0.5 mg/dL (0.2-1.3); Blood Urea Nitrogen 13 mg/dL (7-17); Calcium 9.1 mg/dL (8.4-10.2); Carbon Dioxide 32 mmol/L (22-30); Chloride 100 mmol/L (98-107); Cholesterol 245 mg/dL (0-200); Estimated Glomerular Filt Rate > 60; Glucose 91 mg/dL (65-110); HDL Direct 47 mg/dL; Hematocrit 46.5 % (37.0-47.0); Hemoglobin 15.3 g/dL (12.0-15.0); Mean Corpuscular HGB Conc 32.9 g/dl (32-36); Mean Corpuscular Hemoglobin 29.4 pg (26-34); Mean Corpuscular Volume 89.3 fl (80-100); Mean Platelet Volume 10.2 fl (7.4-10.4); Platelet Count Result 287 k/mm3 (150-375); Potassium 3.5 mmol/L (3.4-5.0); Red Blood Count 5.21 M/mm3 (4.2-5.4); Red Cell Distribution Width 13.3 % (11.5-14.5); Sodium 138 mmol/L (137-145); Triglycerides 213 mg/dL (<150); White Blood Count 6.9 K/mm3 (4.5-10.0)
[2024-03-02 11:36] LABS: LDL Cholesterol Direct 156 mg/dL
[2024-03-02 11:47] LABS: Hemoglobin A1C 5.5 % (<5.7)
[2024-03-02 11:55] LABS: Vitamin D 25 Hydroxy 43.1 ng/mL
== END 2024-03-02 10:28 | disposition home or self-care (01) ==
LOC: ANHLAB 10:37
PROVIDERS: PCP Family Medicine; Visit Provider Family Medicine
DX: E03.9 Hypothyroidism, unspecified (principal); E78.00 Pure hypercholesterolemia, unspecified; I10 Essential (primary) hypertension; R53.83 Other fatigue; R73.01 Impaired fasting glucose; E55.9 Vitamin D deficiency, unspecified
CPT/HCPCS: 36415; 80053; 80061; 81001; 82306; 83036; 84443; 85027

== ENCOUNTER 2024-09-26 11:16 | Outpatient (CLI) | payer MEDICARE, SELFPAY ==
[2024-09-26 11:55] LABS: Alanine Aminotransferase 26 U/L (6-35); Albumin Level 4.4 g/dL (3.5-5.1); Alkaline Phosphatase 54 U/L (38-126); Anion Gap 12 mmol/L (4-12); Aspartate Amino Transferase 25 U/L (14-36); Bilirubin,Total 0.5 mg/dL (0.2-1.3); Blood Urea Nitrogen 18 mg/dL (7-17); Calcium 9.6 mg/dL (8.4-10.2); Carbon Dioxide 28 mmol/L (22-30); Chloride 99 mmol/L (98-107); Estimated Glomerular Filt Rate > 60; Glucose 96 mg/dL (65-110); Potassium 3.8 mmol/L (3.4-5.0); Sodium 139 mmol/L (137-145)
--- OUTSIDE RECORDS SUMMARY | 2024-09-26 12:19 | XMS_ITS | Referral Summary ---
Author Organization [facility] Address [address] [place] [address] Care Team Providers Care Obstetrics And Gynecology Professor Name Role Phone Neftali Ocampo MD Primary Care Provider [phone] Source Comments [facility],non-owned Affiliates and Associated Physician Practices is amultiple site organization consisting of ambulatory clinics and hospital sitesin [place], [place], [place] and [place]. This disclosure is being madepursuant to the Care Everywhere program and may not contain all information available regarding this patient. Last updated 18.[facility] Allergies Active Allergy Reactions Criticality Noted Date Comments Codeine 08/28/2011 Active Problems Problem Noted Date Diagnosed Date Gastro-esophageal reflux disease without esophag itis 07/31/2017 Supraventricular tachycardia 07/31/2017 Hyperlipidemia 06/14/2015 Hypothyroidism 06/14/2015 Essential (primary) hypertension 06/16/2012 Myalgia 06/16/2012 Immunizations Name Administration Dates Next Due INFLUENZA VACCINE, HIGH-DOSE , QUADR. (FLUZONE HIGH-DOSE QUADRIVALENT; 65Y+), 0.7 ML (HD-IIV4) 07/15/2013 Social History Tobacco Use Types Packs/Day Years Used Date Smoking Tobacco: Former Cigarettes Q uit: 08/28/1976 Smokeless Tobacco: Never Alcohol Use Standard Drinks/Week Comments No 0 (1 standard drink = 0.6 oz pur e alcohol) Sex and Gender Information Value Date Recorded Sex Assigned at Not on file Gender Identity Not on file Sexual Orientation Not on file Last Filed Vital Signs Vital Sign Reading Time Taken Comments Blood Pressure 136/78 07/31/2017 1:19 PM TANNING SOLUTION MAKER Pulse 62 07/31/2017 1:19 PM TANNING SOLUTION MAKER Temperature 36.8 ??C (98.2 ??F) 07/31/2017 1:19 PM CS T Respiratory Rate 12 07/31/2017 1:19 PM TANNING SOLUTION MAKER Oxygen Saturation 96% 07/31/2017 1:19 PM TANNING SOLUTION MAKER Inhaled Oxygen Concentration - - Weight 78.4 kg (172 lb 14.4 oz) 07/31/2017 1:19 PM TANNING SOLUTION MAKER Height 165.1 cm (5' 5 ) 07/31/2017 1:19 PM TANNING SOLUTION MAKER Body Mass Index 28.77 07/31/2017 1:19 PM TANNING SOLUTION MAKER Plan of Treatment Not on file Care Teams Obstetrics And Gynecology Professor Relationship Specialty Start Date End Date Neftali Ocampo MD [address] [place] [address] PCP - General 08/28/11
--- OUTSIDE RECORDS SUMMARY | 2024-09-26 12:19 | XMS_ITS | Clinical Summary ---
Author Organization [email or web address] Address [address] [place] [address] Care Team Providers Care Form Grader Name Role Phone Neftali Ocampo MD Primary Care Provider [phone] Source Comments [facility],non-owned Affiliates and Associated Physician Practices is amultiple site organization consisting of ambulatory clinics and hospital sitesin [place], [place], [place] and [place]. This disclosure is being madepursuant to the Care Everywhere program and may not contain all information available regarding this patient. Last updated 18.[email or web address] Allergies Active Allergy Reactions Criticality Noted Date Comments Codeine 08/28/2011 Active Problems Problem Noted Date Diagnosed Date Gastro-esophageal reflux disease without esophag itis 07/31/2017 Supraventricular tachycardia 07/31/2017 Hyperlipidemia 06/14/2015 Hypothyroidism 06/14/2015 Essential (primary) hypertension 06/16/2012 Myalgia 06/16/2012 Immunizations Name Administration Dates Next Due INFLUENZA VACCINE, HIGH-DOSE , QUADR. (FLUZONE HIGH-DOSE QUADRIVALENT; 65Y+), 0.7 ML (HD-IIV4) 07/15/2013 Family History Medical History Relation Name Comments Diabetes Father Hypertension Father Diabetes Mother Thyroid Disease Mother Cancer Sister Lung cancer Relation Name Status Comments Father Mother Sister Social History Tobacco Use Types Packs/Day Years [...] Comments Blood Pressure 136/78 07/31/2017 1:19 PM BLASTING ENTRY SPECIALIST Pulse 62 07/31/2017 1:19 PM BLASTING ENTRY SPECIALIST Temperature 36.8 ??C (98.2 ??F) 07/31/2017 1:19 PM CS T Respiratory Rate 12 07/31/2017 1:19 PM BLASTING ENTRY SPECIALIST Oxygen Saturation 96% 07/31/2017 1:19 PM BLASTING ENTRY SPECIALIST Inhaled Oxygen Concentration - - Weight 78.4 kg (172 lb 14.4 oz) 07/31/2017 1:19 PM BLASTING ENTRY SPECIALIST Height 165.1 cm (5' 5 ) 07/31/2017 1:19 PM BLASTING ENTRY SPECIALIST Body Mass Index 28.77 07/31/2017 1:19 PM BLASTING ENTRY SPECIALIST Plan of Treatment Health Maintenance Due Date Last Done Comments BONE DENSITY TESTING 1945 MEDICARE AWV ? 12 MONTHS 1945 HEPATITIS C SCREENING 06/13/1964 DTAP/TDAP/TD VACCINES (1 - Tdap) 1965 PNEUMOCOCCAL VACCINE 50+ (1 of 1 - PCV) 1996 ZOSTER VACCINE (1 of 2) 1996 Respiratory Syncytial Virus (RSV) Vaccine Pt: or over 60 yrs (1 - 1-dose 75+ series) 2021 COVID-19 VACCINE ( - 2023-2 5 season) 2024 INFLUENZA VACCINE (#1) 2024 07/15/2013 DEPRESSION SCREENING 08/31/2024 HEPATITIS B VACCINE Aged Out No longe r eligible based on patient's age to complete this topic HIB VACCINE Aged Out No longer eligi ble based on patient's age to complete this topic HPV VACCINE Aged Out No longer eligi ble based on patient's age to complete this topic MENINGOCOCCAL (Group B) VACCINE Aged Out No longer eligible based on patient's age to complete this topic MENINGOCOCCAL VACCINE Aged Out No marci mily eligible based on patient's age to complete this topic Care Teams Form Grader Relationship Specialty Start Date End Date Neftali Ocampo MD [address] [place], [place] [id number] PCP - General 08/28/11
--- OUTSIDE RECORDS SUMMARY | 2024-09-26 12:19 | XMS_ITS | Clinical Summary ---
Author Organization [facility] D Address [address] [place] [address] Care Team Providers Care Teenage Program Director Name Role Phone Neftali Ocampo MD Primary Care Provider Allergies Active Allergy Reactions Criticality Noted Date Comments Codeine Nausea only,Vomiting Reaction: NAUSEA, VOMITING, , , , , Cortisone Headache Low 08/06/2023 Hydrocodone Nausea only,Vomiting Reaction: NAUSEA, VOMITING, Medications potassium chloride ER (KLOR-CON 10) 10 mEq CR tablet take 1 Tablet (10MEQ) by oral route every day with food 0 12/15/2012 Active pravastatin (PRAVACHOL) 20 mg tablet Take 1 tablet (20 mg total) by mouth daily 12/18/2021 Active multivitamin capsule Take 1 capsule by mouth daily Active levothyroxine (SYNTHROID) 112 mcg tablet Take 1 tablet (112 mcg total) by mouth daily 90 tablet 3 03/26/2023 Active losartan (COZAAR) 25 mg tablet Take 1 tablet (25 mg total) by mouth daily Active hydroCHLOROthia zide (HYDRODIURIL) 25 mg tablet Take 1 tablet (25 mg total) by mouth daily Active omega-3 fatty acids-fish oil 300-1,000 mg capsule Take 2 capsules (2 g total) by mouth daily Active meloxicam (MOBIC) 15 mg tablet 15 MG ORALLY DAILY 08/07/2023 Active cholecalciferol 400 unit capsule Active Active Problems Problem Noted Date Diagnosed Date H/O cardiac radiofrequency ablation 08/06/2023 Near syncope 07/12/2023 Chronic fatigue 02/12/2023 Assessment & Plan (02/12/2023 1:57 PM CDT): Not caused by hypothyroidism Could be related to sleep disorder - continue sleep study - recommended sleep specialist for evaluation. Abnormal ECG 08/14/2020 Assessment & Plan (08/14/2020 5:08 PM BOOKMAKER'S CLERK): EKG shows incomplete right bundle branch block and nonspecific T-wave abnormalities. Because of this, a stress test without imaging would not be helpful. Jaw pain 08/14/2020 Assessment & Plan (08/14/2020 5:07 PM BOOKMAKER'S CLERK): Nonexertional episodes of left jaw pain in a woman with risk factors for coronary artery disease including hypertension and dyslipidemia. EKG is abnormal. Will obtain a nuclear stress test, converting to pharmacologic if she is unable to achieve 85% of her age predicted maximal heart rate with exercise given the limitations of her left knee problem. Dyspnea on exertion 12/22/2017 Assessment & Plan (12/22/2017 3:49 PM CDT): Mild. No cardiac cause. Thyroiditis 01/14/2014 Overview (12/03/2016): Thyroiditis Paroxysmal supraventricular tachycardia 01/15/20 14 Overview (12/06/2016): Paroxysmal SVT (supraventricular tachycardia) Assessment & Plan (12/22/2017 3:49 PM CDT): No documented recurrence since ablation. She has occasional palpitations after caffeine. She avoids caffeine. Assessment & Plan (02/24/2017 12:57 PM CDT): No documented recurrence since radiofrequency ablation. Brief palpitations do not sound like SVT. Primary hypothyroidism 08/26/2013 Overview (12/05/2016): Hypothyroidism Assessment & Plan (08/14/2023 10:43 AM BOOKMAKER'S CLERK): Patient on Levothyroxine for many years. Patient is clinically euthyroid TSH was normal at 3.4 on 07/12/23 Plan: Continue Levothyroxine 112 mcg/day The proper way of taking Levothyroxine reviewed with patient. She will follow up with new Tugboat Engineer in 6 month Assessment & Plan (02/12/2023 1:56 PM CDT): Patient on Levothyroxine for many years. Her dose has been changed few times in last 6 month Levels are fluctuating TSH of 0.32 on 12/16/22 on 100 mcg/day TSH of 5.3 on 01/27/23 on 112 mcg/day Plan: Change Levothyroxine to 112 mcg/day The proper way of taking Levothyroxine reviewed with patient. MVI needs to be 4 hrs away from Levothyroxine Check TSH in 6 weeks I will adjust the dose based on lab results. Assessment & Plan (01/03/2022 1:12 PM CDT): Patient is clinically euthyroid TSH was normal at 3.3 on 08/09/21 Plan: Continue same dose of Levothyroxine The proper way of taking Levothyroxine reviewed with patient. Check TSH I will adjust the dose based on lab results. Osteoarthritis 08/26/2013 Overview (12/05/2016): Osteoarthritis Gastroesophageal reflux disease 08/26/2013 Overview (12/05/2016): GERD (gastroesophageal reflux disease) Hypercholesteremia 08/26/2013 Overview (12/05/2016): Hypercholesteremia Assessment & Plan (08/14/2020 5:07 PM BOOKMAKER'S CLERK): Despite a previous history of not tolerating statins, she is able to tolerate low-dose pravastatin. Her LDL is not perfect, but is better than it had been. Assessment & Plan (12/27/2018 11:21 AM CDT): Cholesterol is mildly elevated. Triglycerides nonfasting are 306. In the absence of any documented coronary artery disease, these are satisfactory without treatment. Raynaud's disease 08/26/2013 Overview (12/05/2016): Raynauds disease Fibrositis 06/07/2013 Overview (12/03/2016): Fibromyalgia Hypertension 06/07/2013 Overview (12/06/2016): Hypertension Assessment & Plan (01/03/2022 1:13 PM CDT): Controlled with medication - continue Norvasc per pcp - low salt diet Assessment & Plan (08/14/2020 5:07 PM BOOKMAKER'S CLERK): Blood pressure is adequately controlled on current regimen. No change was made. Assessment & Plan (12/27/2018 11:21 AM CDT): Blood pressure is adequately controlled on current regimen. No change was made. Assessment & Plan (12/22/2017 3:50 PM CDT): Blood pressure is adequately controlled on current regimen. No change was made. Assessment & Plan (02/24/2017 12:58 PM CDT): Blood pressure is adequately controlled on current regimen. No change was made. 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 Family History Medical History Relation Name Comments Hypertension Brother 3 Hypertension; Dyslipidemia Brother 4 Dyslipidemia; Hyperlipidemia Brother 5 Hyperlipidemi a; Hypertension Brother 6 Hypertension; Hypertension Daughter 2 Hypertension; Coronary artery disease Father Trisha nary artery disease; Heart attack Father Myocardial Infa rction; Cause of : Myocardial Infarction/Myocardial Infarction; /Heart Attack; Hypertension Father Hypertension; / Hypertension; Heart disease Mother Heart disease; Heart failure Mother Congestive hea rt failure; Hypertension Mother Hypertension; / Hypertension; Other Mother Heart Failure ; Rheum arthritis Mother Rheumatoid a rthritis; /Rheumatoid arthritis; Stroke Mother Stroke; /Stroke ; Cause of : Stroke Transient ischemic attack Mother TI A; Heart disease Other 3 Heart disease; Rheum arthritis Other 4 Rheumatoid a rthritis; Lung cancer Sister 4 Cancer, lung; Kidney disease Sister 5 Renal disease ; Arthritis Sister 6 arthritis; Lung cancer Sister 7 Cancer -lung; C ause of : Cancer -lung Kidney disease Sister 8 Renal disease ; Relation Name Status Comments Brother 1 Alive Brother 2 Alive Brother 3 Brother 4 Brother 5 Brother 6 Daughter 1 Alive Daughter 2 Father Alive Mother (Age 81) Other 1 Alive Other 2 Alive Other 3 Other 4 Sister 1 Alive Sister 2 Alive Sister 3 (Age 64) Sister 4 Sister 5 Sister 6 Sister 7 Sister 8 Social History Tobacco Use Types Packs/Day Years Used Date Smoking Tobacco: Former Smokeless Tobacco: Never Tobacco Cessation:Counseling Given: Not Answered Comments:Smoking History Packs/day: 0.25 Packs Alcohol Use Standard Drinks/Week Comments No 0 (1 standard drink = 0.6 oz pur e alcohol) [facility] [employer]ok[employer] Answer Date Recorded In the past 12 months has [employer], oil, or water [employer] threatened to shut off services in your home? No 07/13/2023 Social Connection and Isolat ion Panel [NHANES] Answer Date Recorded In a typical week, how many times do you talk on the phone with family, friends, or neighbors? More than three times a week 07/13/2023 How often do you get togethe r with friends or relatives? Twice a week 07/13/2023 How often do you attend chur or pentecostalism services? Never 07/13/2023 Do you belong to any clubs o r organizations such as latter-day groups, unions, fraternal or athletic groups, or school groups? No 07/13/2023 How often do you attend meet ings of the clubs or organizations you belong to? Never 07/13/2023 Are you , , di vorced, , never , or living with a partner? 07/13/2023 AUDIT-C Answer Date Recorded Q1: How often do you have a drink containing alcohol? Never 07/12/2023 Q2: How many drinks containi ng alcohol do you have on a typical day when you are drinking? Patient does not drink Q3: How often do you have si x or more drinks on one occasion? Never 07/12/2023 Overall Financial Resource Strain (CARDIA) Answe r Date Recorded How hard is it for you to pa y for the very basics like food, housing, medical care, and heating? Not hard at all 07/13/2023 Hunger Vital Sign Answer Date Recorded Within the past 12 months, y ou worried that your food would run out before you got the money to buy more. Never true 07/13/20 23 Within the past 12 months, t he food you bought just didn't last and you didn't have money to get more. Never true 07/13/2023 PRAPARE - Transportation Answer Date Re corded In the past 12 months, has l ack of transportation kept you from medical appointments or from getting medications? No 07/01 In the past 12 months, has l ack of transportation kept you from meetings, work, or from getting things needed for daily living? No 07/13/2023 Housing Stability Vital Sign Answer Augusto e Recorded In the last 12 months, was t here a time when you were not able to pay the mortgage or rent on time? No 07/13/2023 In the last 12 months, how many places have you lived? 1 07/13/2023 In the last 12 months, was t here a time when you did not have a steady place to sleep or slept in a snf (including now)? No 07/13/2023 Personal Safety Answer Date Recorded Have you ever been in or are you currently in a harmful physical or emotional relationship or is someone making you feel afraid or unsafe? Denies 07/12/2023 Education Answer Date Recorded What is the highest level of school you have completed or the highest degree you have received? High school graduate 07/13/2023 Comments No Sex and Gender Information Value Date Recorded Sex Assigned at Not on file Legal Sex Female 11:32 PM BOOKMAKER'S CLERK Gender Identity Not on file Sexual Orientation Not on file Obstetrics History Last Filed Vital Signs Vital Sign Reading Time Taken Comments Blood Pressure 132/70 08/14/2023 10:10 AM BOOKMAKER'S CLERK Pulse 88 08/06/2023 10:48 AM BOOKMAKER'S CLERK Temperature 36.4 ??C (97.6 ??F) 07/13/2023 7:46 AM CS T Respiratory Rate 14 07/13/2023 7:46 AM BOOKMAKER'S CLERK Oxygen Saturation 92% 08/06/2023 10: 48 AM BOOKMAKER'S CLERK Inhaled Oxygen Concentration - - Weight 85.2 kg (187 lb 12.8 oz) 023 10:10 AM BOOKMAKER'S CLERK Height 165.1 cm (5' 5 ) 08/14/2023 10:1 0 AM BOOKMAKER'S CLERK Body Mass Index 31.25 08/14/2023 10:10 AM BOOKMAKER'S CLERK Plan of Treatment Health Maintenance Due Date Last Done Comments Depression Screening 1945 Hepatitis C Screening 1945 Osteoporosis Screening-Bone Density Scan 1945 DTaP/Tdap/Td Vaccine (1 - Tdap) 1957 Hepatitis B Screening 1964 Zoster Vaccine (1 of 2) 1996 Well Visit 65+ 2011 Pneumococcal vaccine 65+ (2 of 2 - PPSV23 or PCV20) 09/26/2016 09/26/2015 Influenza Vaccine (#1) 2024 09/25/2015, 2012 Fall Risk Assessment 07/13/2024 07/13/2023 Insurance MEDICARE MEDICARE MEDICARE COMMERCIAL GENERIC Advance Directives For more information, please contact: [phone] * Full Code (Latest Code Status on File) Date Activated Date Inactivated Comments 07/12/2023 5:18 PM 07/13/2023 2:43 PM Care Teams Teenage Program Director Relationship Specialty Start Date End Date Neftali Ocampo MD [address] [place] [address] PCP - General 12/11/11
--- OUTSIDE RECORDS SUMMARY | 2024-09-26 12:19 | XMS_ITS | Encounter Summary ---
Author Organization [facility] Address [address] [place] [address] Care Team Providers Care Clinic Cma Name Role Phone Neftali Ocampo MD Primary Care Provider [phone] Encounter Details Date Type Department Care Team (Late st Contact Info) Description 01/22/2022 Lab Requisition [facility] D[facility] [address] [place] [id number] Vj Barkley MD [address] [place] [address] Social History Tobacco Use Types Packs/Day Years Used Date Smoking Tobacco: Former Cigarettes Q uit: 08/28/1976 Smokeless Tobacco: Never Alcohol Use Standard Drinks/Week Comments No 0 (1 standard drink = 0.6 oz pur e alcohol) Sex and Gender Information Value Date Recorded Sex Assigned at Not on file Gender Identity Not on file Sexual Orientation Not on file documented as of this encounter Plan of Treatment Not on file documented as of this encounter Procedures Procedure Name Priority Date/Time Associated Diagnosis Comments DERMATOPATHOLOGY Routine 01/21/2022 12:0 0 AM CDT documented in this encounter Results * DERMATOPATHOLOGY (01/21/2022 12:00 AM CDT) Case Report Dermatopathology Report ? Case: [id number] ? Authorizing Provider: ??Vj Barkley MD ?Collected: ? 01/21/2022 12:00 AM ? Ordering Location: ? [facility] ?Received: ?01/22/2022 01:56 PM ? Pathologist: ? Bonifacio Mccarthy MD ? Specimen: ?Skin, left upper medial chest ? 2 2:57 PM CDT DERMATOPATHOLOGY LABORATORY Final Diagnosis Specimen A. SKIN, left upper medial chest: BASAL CELL CARCINOMA, NODULAR TYPE (C44.519) NOT PRESENT AT SAMPLED MARGIN 2 2:57 PM CDT DERMATOPATHOLOGY LABORATORY Clinical History R/O BCC. Please Check Margins. 2 2:57 PM CDT DERMATOPATHOLOGY LABORATORY Gross Description Specimen A: Received is one formalin filled container labeled with the patients name and designated left upper medial chest. The specimen consists of a shave removal measuring [id number] and it is inked. Jar 0. 2 2:57 PM CDT DERMATOPATHOLOGY LABORATORY Microscopic Description Specimen A. SKIN, left upper medial chest: Within the dermis there are aggregates of basaloid cells with a high nuclear to cytoplasmic ratio and peripheral palisading. This lesion is not present at the sampled margin of the specimen. 2 2:57 PM CDT DERMATOPATHOLOGY LABORATORY Disclaimer An external and internal positive and negative controls are appropriate for the histochemical, immunohistochemical and immunofluorescence stain(s) in this case (if any), except where stated explicitly. The performance characteristics of the stain(s) cited in this report were developed and its performance characteristic determined by the Dermatopathology Laboratory at [facility], directed by Dr. Cheo Mccarthy. These tests need not be, and therefore are not, approved by the [place] Food and Drug Administration. The tests are used for clinical purposes. Billing Codes Specimen Charges Stain Charges 17639 1 2 2:57 PM CDT DERMATOPATHOLOGY LABORATORY Embedded Images 2 2:57 PM CDT DERMATOPATHOLOGY LABORATORY Pathology/Cytolog y TISSUE SPECIMEN FROM SKIN / Unknown 01/21/2022 01/22/2022 1:56 PM CDT Vj Barkley MD LAB - PATHOLOGY/CYTO LOGY ORDERABLES DERMATOPATHOLOGY LABORATORY [facility] - Department of Dermatology [address], [address] [phone] documented in this encounter Visit Diagnoses Not on filedocumented in this encounter Care Teams Clinic Cma Relationship Specialty Start Date End Date Neftali Ocampo MD [address] [place] [address] PCP - General 08/28/11 documented as of this encounter
--- OUTSIDE RECORDS SUMMARY | 2024-09-26 12:19 | XMS_ITS | Patient Health Summary ---
Author Organization [facility] Address [address] [place] [address] Care Team Providers Care Prepared Foods Associate Name Role Phone Neftali Ocampo MD Primary Care Provider [phone] Note from [facility],non-owned Affiliates and Associated Physician Practices is amultiple site organization consisting of ambulatory clinics and hospital sitesin [place], [place], [place] and [place]. This disclosure is being madepursuant to the Care Everywhere program and may not contain all information available regarding this patient. Last updated 18.[facility] Allergies * Codeine Active Problems Problem Noted Date Diagnosed Date Gastro-esophageal reflux disease without esophag itis 07/31/2017 Supraventricular tachycardia 07/31/2017 Hyperlipidemia 06/14/2015 Hypothyroidism 06/14/2015 Essential (primary) hypertension 06/16/2012 Myalgia 06/16/2012 Immunizations * INFLUENZA VACCINE, HIGH-DOSE, QUADR. (FLUZONE HIGH-DOSE QUADRIVALENT; 65Y+), 0.7 ML (HD-IIV4)(Given 07/15/2013) Social History Tobacco Use Types Packs/Day Years [...] Comments Blood Pressure 136/78 07/31/2017 1:19 PM METAL STORAGE WORKER Pulse 62 07/31/2017 1:19 PM METAL STORAGE WORKER Temperature 36.8 ??C (98.2 ??F) 07/31/2017 1:19 PM CS T Respiratory Rate 12 07/31/2017 1:19 PM METAL STORAGE WORKER Oxygen Saturation 96% 07/31/2017 1:19 PM METAL STORAGE WORKER Inhaled Oxygen Concentration - - Weight 78.4 kg (172 lb 14.4 oz) 07/31/2017 1:19 PM METAL STORAGE WORKER Height 165.1 cm (5' 5 ) 07/31/2017 1:19 PM METAL STORAGE WORKER Body Mass Index 28.77 07/31/2017 1:19 PM METAL STORAGE WORKER Procedures * DERMATOPATHOLOGY(Performed 02/03/2023) * DERMATOPATHOLOGY(Performed 01/21/2022) * DERMATOPATHOLOGY(Performed 09/25/2020) * DERMATOPATHOLOGY(Performed 07/06/2019) * DERMATOPATHOLOGY(Performed 08/14/2017) * DERMATOPATHOLOGY(Performed 05/19/2017) * DERMATOPATHOLOGY(Performed 05/13/2017) * LAB HISTORICAL RESULTS-ONBASE(Performed 04/11/2016) * T4 FREE(Performed 04/18/2014) * LIPID PROFILE(Performed 04/18/2014) * COMPREHENSIVE METABOLIC PANEL(Performed 04/18/2014) * TSH(Performed 04/18/2014) * T4 FREE(Performed 07/22/2013) * LIPID PROFILE(Performed 07/22/2013) * COMPREHENSIVE METABOLIC PANEL(Performed 07/22/2013) * TSH(Performed 07/22/2013) * LIPID PROFILE(Performed 02/11/2013) * TSH(Performed 02/11/2013) * CK BLOOD(Performed 02/11/2013) * COMPREHENSIVE METABOLIC PANEL(Performed 02/11/2013) * LIPID PROFILE(Performed 06/23/2012) * MAGNESIUM BLOOD(Performed 06/23/2012) * TSH(Performed 06/23/2012) * CK BLOOD(Performed 06/23/2012) * COMPREHENSIVE METABOLIC PANEL(Performed 06/23/2012) * TSH(Performed 03/17/2012) * BASIC METABOLIC PANEL (CALCIUM TOTAL)(Performed 11/27/2011) * TSH(Performed 11/27/2011) * T4 FREE(Performed 11/27/2011) * RENIN ACTIVITY(Performed 09/10/2011) * BASIC METABOLIC PANEL (CALCIUM TOTAL)(Performed 09/10/2011) * T4 FREE(Performed 09/10/2011) * TSH(Performed 09/10/2011) * LAB HISTORICAL RESULTS-ONBASE(Performed 09/10/2011) * GLUCOSE(Performed 08/31/1998) * LIPID PROFILE(Performed 08/31/1998) * CREATININE BLOOD(Performed 08/31/1998) * TSH(Performed 08/31/1998) * TSH(Performed 08/31/1998) * LIPID PROFILE(Performed 08/31/1998) * TSH(Performed 08/31/1998) Results * DERMATOPATHOLOGY (02/03/2023 12:00 AM CDT) Only the most recent of7 resultswithin the time period is included. Case Report Dermatopathology Report ? Case: [id number] ? Authorizing Provider: ??Vj Barkley MD ?Collected: ? 02/03/2023 12:00 AM ? Ordering Location: ? [facility] ? Received: ?02/04/2023 01:40 PM ? Pathologist: ? Bonifacio Mccarthy MD ? Specimen: ?Skin, right radial volar prox forearm ? 3 3:54 PM CDT DERMATOPATHOLOGY LABORATORY Final Diagnosis Specimen A. 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 Check Margins. 3 3:54 PM CDT DERMATOPATHOLOGY LABORATORY Gross Description Specimen A: Received is one formalin filled container labeled with the patients name and designated right radial volar prox forearm. The specimen consists of a shave removal measuring [id number] mm. Jar 0. 3:54 PM CDT DERMATOPATHOLOGY LABORATORY Microscopic Description Specimen A. SKIN, right radial volar prox forearm: There is a proliferation of melanocytes distributed in an irregular pattern, singly and in nests, at all levels of the epidermis. MART-1/Melan-A highlights the pagetoid spread. This lesion is present at one lateral margin of the specimen. 3:54 PM CDT DERMATOPATHOLOGY LABORATORY Disclaimer An external and internal positive and negative controls are appropriate for the histochemical, immunohistochemical and immunofluorescence stain(s) in this case (if any), except where stated explicitly. The performance characteristics of the stain(s) cited in this report were developed and its performance characteristic determined by the Dermatopathology Laboratory at [facility], directed by Dr. Cheo Mccarthy. These tests need not be, and therefore are not, approved by the [place] Food and Drug Administration. The tests are used for clinical purposes. Billing Codes Specimen Charges Stain Charges 55328 1 56966 1 3:54 PM CDT DERMATOPATHOLOGY LABORATORY Embedded Images 3:54 PM CDT DERMATOPATHOLOGY LABORATORY Pathology/Cytolog y TISSUE SPECIMEN FROM SKIN / Unknown 02/03/2023 02/04/2023 1:40 PM CDT Vj Barkley MD LAB - PATHOLOGY/CYTO LOGY ORDERABLES DERMATOPATHOLOGY LABORATORY [facility] - Department of Dermatology [address], [address] [phone] * LAB HISTORICAL RESULTS-ONBASE (04/11/2016) Only the most recent of2 resultswithin the time period is included. 04/11/2016 Historical Provider LAB - CHEMISTRY O ÁNGEL [facility] [address] * COMPREHENSIVE METABOLIC PANEL (04/18/2014 9:41 AM CDT) Only the most recent of4 resultswithin the time period is included. Glucose 91 65 - 99 mg/dL [facility] (BEAKER) BUN 19 8 - 27 mg/dL [facility] (BEAKER) Creatinine 0.96 0.57 - 1.00 mg/dL [facility] (BEAKER) eGFR non- 61 >59 mL/min/1.7 3 [facility] (BEAKER) eGFR 71 >59 mL/min/1.7 3 [facility] (BEAKER) BUN/Creatinine Ratio 20 11 - 26 [facility] (BEAKER) Sodium 140 134 - 144 mmol/L [facility] (BEAKER) Potassium 4.0 3.5 - 5.2 mmol/L [facility] (BEAKER) Chloride 98 97 - 108 mmol/L [facility] (BEAKER) CO2 27 18 - 29 mmol/L [facility] (BEAKER) Calcium 9.8 8.6 - 10.2 mg/dL [facility] (BEAKER) Protein Total 6.9 6.0 - 8.5 g/dL [facility] (BEAKER) Albumin 4.6 3.6 - 4.8 g/dL [facility] (BEAKER) Globulin Total 2.3 1.5 - 4.5 g/dL [facility] (BEAKER) Albumin/Globulin Ratio 2.0 1.1 - 2.5 [facility] (BEAKER) Bilirubin Total 0.3 0.0 - 1.2 mg/dL [facility] (BEAKER) Alkaline Phosphatase 47 39 - 117 IU/L [facility] (BEAKER) AST 15 0 - 40 IU/L [facility] (BE[facility]) ALT 14 0 - 32 IU/L [facility] (BEAKER) Blood specimen (specimen) BLOOD SPECIMEN / Unknown 04/18/2014 9:41 AM CDT 04/18/2014 2:37 PM CDT Narrative [facility] ([place]) - 04/19/2014 7:28 AM CDT Performed at: ?? - [facility] [address] ??[id number] Land Surveyor Manager: Morgan Ayon PhD, Phone: ??[phone] Specimen Comment: A courtesy copy of this report has been sent to Specimen Comment: Neftali Ocampo M.D.. Sajan Oconnor MD LAB - CHEMISTRY AMAYA MENDIOLA [facility] ([place]) * TSH (04/18/2014 9:41 AM CDT) Only the most recent of10 resultswithin the time period is included. TSH 1.710 0.450 - 4.500 uIU/mL [facility] ([place]) Blood specimen (specimen) BLOOD SPECIMEN / Unknown 04/18/2014 9:41 AM CDT 04/18/2014 2:37 PM CDT Narrative [facility] ([place]) - 04/19/2014 7:28 AM CDT Performed at: ?? - [facility] ??[id number] Land Surveyor Manager: Morgan Ayon PhD, Phone: ??[phone] Specimen Comment: A courtesy copy of this report has been sent to Specimen Comment: Neftali Ocampo M.D.. Sajan Oconnor MD LAB - CHEMISTRY AMAYA MENDIOLA [facility] ([place] * T4 FREE (04/18/2014 9:41 AM CDT) Only the most recent of4 resultswithin the time period is included. T4 Free 1.54 0.82 - 1.77 ng/dL [facility] ([place]) Blood specimen (specimen) BLOOD SPECIMEN / Unknown 04/18/2014 9:41 AM CDT 04/18/2014 2:37 PM CDT Narrative [facility] (BEAKER) - 04/19/2014 7:28 AM CDT Performed at: ??01 - [facility] [address] ??[id number] Land Surveyor Manager: Morgan Ayon PhD, Phone: ??[phone] Specimen Comment: A courtesy copy of this report has been sent to Specimen Comment: Neftali Ocampo M.D.. Sajan Oconnor MD LAB - CHEMISTRY AMAYA MENDIOLA Performing Organization Address [facility]/ZIP Co de Phone Number [facility] (BEAKER) * (ABNORMAL) LIPID PROFILE (04/18/2014 9:41 AM CDT) Only the most recent of6 resultswithin the time period is included. Cholesterol Total 158 100 - 199 mg/dL [facility] (BEAKER) Triglycerides 160(H) 0 - 149 mg/dL [facility] (BEAKER) HDL 50 >39 mg/dL [facility] (BEAKER) Comment: According to ATP-III Guidelines, HDL-C >59 mg/dL is considered a negative risk factor for CHD. VLDL Calculated 32 5 - 40 mg/dL [facility] (BEAKER) LDL Calculated 76 0 - 99 mg/dL [facility] (BEAKER) Blood specimen (specimen) BLOOD SPECIMEN / Unknown 04/18/2014 9:41 AM CDT 04/18/2014 2:37 PM CDT Narrative [facility] (BEAKER) - 04/19/2014 7:28 AM CDT Performed at: ?? - [facility] [address] ??[id number] Land Surveyor Manager: Morgan Ayon PhD, Phone: ??[phone] Specimen Comment: A courtesy copy of this report has been sent to Specimen Comment: Neftali Ocampo M.D.. Sajan Oconnor MD LAB - CHEMISTRY AMAYA MENDIOLA Performing Organization Address City/[facility]/ZIP Co de Phone Number [facility] (BEAKER) * CK BLOOD (02/11/2013 10:37 AM CDT) Only the most recent of2 resultswithin the time period is included. CK Total 87 24 - 173 U/L [facility] ([facility]) Serum 02/11/2013 10:3 7 AM CDT 02/11/2013 12:50 PM CDT Narrative [facility] ([facility]) - 02/12/2013 7:28 AM CDT Performed at: ??[address] ??[id number] Land Surveyor Manager: Morgan Ayon PhD, Phone: ??[phone] Sajan Oconnor MD LAB - CHEMISTRY ORDBrant MENDIOLA Performing Organization Address [facility] Co de Phone Number [facility]) * MAGNESIUM BLOOD (06/23/2012 9:26 AM CDT) Pathologist [facility] Magnesium 2.1 1.6 - 2.6 mg/dL [facility]) Serum 06/23/2012 9:26 AM CDT 06/23/2012 12:13 PM CDT Narrative [facility]) - 06/24/2012 7:30 AM CDT Performed at: ??01 - [address] ??[id number] Land Surveyor Manager: Evi Aguirre MD, Phone: ??[phone] Sajan Oconnor MD LAB - CHEMISTRY AMAYA MENDIOLA Performing Organization Address [facility]/ZIP Co de Phone Number [facility] ([facility]) * BASIC METABOLIC PANEL (CALCIUM TOTAL) (11/27/2011 2:22 PM CDT) Only the most recent of2 resultswithin the time period is included. BUN 18 7 - 26 mg/dL [facility] Creatinine 1.0 0.6 - 1.2 mg/dL [facility] eGFR by MDRD 56 ML/MIN [facility] Comment: Chronic kidney disease: ??<60 ml/min Kidney failure: ?<15 ml/min Based on BSA of 1.73m2. Sodium 138 136 - 145 mmol/L [facility] Potassium 3.5 3.5 - 4.5 mmol/L [facility] Chloride 100 98 - 107 mmol/L [facility] CO2 28 22 - 29 mmol/L [facility] Glucose 102 70 - 115 mg/dL [facility] Calcium 9.3 8.4 - 10.2 mg/dL [facility] Anion Gap 14 8 - 18 [facility] BUN/Creatinine Ratio 18 7 - 23 [facility] Osmolality Calculation 273 270 - 300 mOsm/kg [facility] 11/27/2011 2:22 PM CDT 11/27/2011 3:22 PM CDT Sajan Oconnor MD LAB - CHEMISTRY AMAYA MENDIOLA Performing Organization Address City/[facility]/ZIP Co de Phone Number [address] [phone] * RENIN ACTIVITY (09/10/2011 9:34 AM METAL STORAGE WORKER) Plasma Renin Activity 61 ng/dL/h [facility] ([place]) Comment: Reference Range: Adults ??Supine: ??20 - 160 ??Upright: 70 - 330 09/10/2011 9:34 AM METAL STORAGE WORKER 09/10/2011 12:03 PM METAL STORAGE WORKER Narrative [facility] ([place]) - 09/16/2011 8:11 PM METAL STORAGE WORKER Performed at: ??02 - [facility] [address] [place] [address] ??[id number] Land Surveyor Manager: Steve Marin MD, Phone: ??[phone] Sajan Oconnor MD LAB - CHEMISTRY AMAYA MENDIOLA [facility] ([place]) * GLUCOSE (08/31/1998 12:00 AM METAL STORAGE WORKER) Glucose POCT 84 mg/dL [facility] Plasma specimen (specimen) 08/31/1998 Narrative [facility] - 08/31/1998 12:00 AM METAL STORAGE WORKER This external order was created through the Results Console. Historical Provider LAB - CHEMISTRY O RDAL Performing Organization Address [facility] Co de Phone Number [facility] * CREATININE BLOOD (08/31/1998 12:00 AM METAL STORAGE WORKER) Creatinine 0.96 mg/dL [facility] 08/31/1998 Narrative [facility] - 08/31/1998 12:00 AM METAL STORAGE WORKER This external order was created through the Results Console. Historical Provider LAB - CHEMISTRY O ÁNGEL Performing Organization Address [facility] Co de Phone Number [facility] Care Teams Prepared Foods Associate Relationship Specialty Start Date End Date Neftali Ocampo MD [address] [place] [id number] PCP - General 08/28/11
--- OUTSIDE RECORDS SUMMARY | 2024-09-26 12:19 | XMS_ITS | Encounter Summary ---
Author Organization [facility] Address [address] [place] [address] Care Team Providers Care Hardware Installer Name Role Phone Neftali Ocampo MD Primary Care Provider [phone] Encounter Details Date Type Department Care Team (Late st Contact Info) Description 02/04/2023 Lab Requisition [facility] - DermPath Lab [address] [place] [phone] Vj Barkley MD [address] [place] [address] Social History Tobacco Use Types Packs/Day Years [...] Priority Date/Time Associated Diagnosis Comments DERMATOPATHOLOGY Routine 02/03/2023 12:0 0 AM CDT documented in this encounter Results * DERMATOPATHOLOGY (02/03/2023 12:00 AM CDT) Case Report Dermatopathology Report ? Case: [id number] ? Authorizing Provider: ??Vj Barkley MD ?Collected: ? 02/03/2023 12:00 AM ? Ordering Location: ? [facility] ? Received: ?02/04/2023 01:40 PM ? Pathologist: ? Bonifacio Mccarthy MD ? Specimen: ?Skin, right radial volar prox forearm ? 3 3:54 PM T DERMATOPATHOLOGY LABORATORY Final Diagnosis Specimen A. 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 Check Margins. 3 3:54 PM T DERMATOPATHOLOGY LABORATORY Gross Description Specimen A: Received is one formalin filled container labeled with the patients name and designated right radial volar prox forearm. The specimen consists of a shave removal measuring 77u78o6 mm. Jar 0. 3 3:54 PM CDT DERMATOPATHOLOGY LABORATORY Microscopic Description Specimen A. SKIN, right radial volar prox forearm: There is a proliferation of melanocytes distributed in an irregular pattern, singly and in nests, at all levels of the epidermis. MART-1/Melan-A highlights the pagetoid spread. This lesion is present at one lateral margin of the specimen. 3 3:54 PM CDT DERMATOPATHOLOGY LABORATORY Disclaimer An external and internal positive and negative controls are appropriate for the histochemical, immunohistochemical and immunofluorescence stain(s) in this case (if any), except where stated explicitly. The performance characteristics of the stain(s) cited in this report were developed and its performance characteristic determined by the Dermatopathology Laboratory at [facility], directed by Dr. Cheo Mccarthy. These tests need not be, and therefore are not, approved by the [place] Food and Drug Administration. The tests are used for clinical purposes. Billing Codes Specimen Charges Stain Charges 41945 1 [id number] 1 3 3:54 PM CDT DERMATOPATHOLOGY LABORATORY Embedded Images 3 3:54 PM CDT DERMATOPATHOLOGY LABORATORY Pathology/Cytolog y TISSUE SPECIMEN FROM SKIN / Unknown 02/03/2023 02/04/2023 1:40 PM CDT Vj Barkley MD LAB - PATHOLOGY/CYTO LOGY ORDERABLES DERMATOPATHOLOGY LABORATORY [facility] - Department of Dermatology [address] [phone] documented in this encounter Visit Diagnoses Not on filedocumented in this encounter Care Teams Hardware Installer Relationship Specialty Start Date End Date Neftali Ocampo MD [address] [place] [address] PCP - General 08/28/11 documented as of this encounter
--- OUTSIDE RECORDS SUMMARY | 2024-09-26 12:20 | XMS_ITS | Encounter Summary ---
Author Organization [facility] Address [address] [place] [address] Attn: [place] [address] Care Team Providers Care Seismographer Name Role Phone Aarti Ayala MD Primary Care Provider [phone] Encounter Details Date Type Department Care Team (Late st Contact Info) Description 05/30/1992 Outpatient Historical Sunil Guzman MD [address] [place] [phone] Social History Tobacco Use Types Packs/Day Years Used Date Smoking Tobacco: Never Assessed Comments Unknown Sex and Gender Information Value Date Recorded Sex Assigned at Not on file Legal Sex Female 4:49 AM TIGHTENER Gender Identity Not on file Sexual Orientation Not on file documented as of this encounter Plan of Treatment Not on file documented as of this encounter Visit Diagnoses Not on filedocumented in this encounter Care Teams Seismographer Relationship Specialty Start Date End Date Aarit Ayala MD [address] [place] [phone] PCP - General 06/22/06 documented as of this encounter
--- OUTSIDE RECORDS SUMMARY | 2024-09-26 12:20 | XMS_ITS | Encounter Summary ---
Author Organization [facility] Address [address] [place] [address] Attn: [place] [address] Care Team Providers Care Plastic Welder Name Role Phone Aarti Ayala MD Primary Care Provider Encounter Details Date Type Department Care Team (Late st Contact Info) Description 10/19/1993 Outpatient Historical Sunil Guzman MD [address] [place] [phone] Social History Tobacco Use Types Packs/Day Years Used Date Smoking Tobacco: Never Assessed Comments Unknown Sex and Gender Information Value Date Recorded Sex Assigned at Not on file Legal Sex Female 4:49 AM TOY ASSEMBLER Gender Identity Not on file Sexual Orientation Not on file documented as of this encounter Plan of Treatment Not on file documented as of this encounter Visit Diagnoses Not on filedocumented in this encounter Care Teams Plastic Welder Relationship Specialty Start Date End Date Aarti Ayala MD [address] [place] [phone] PCP - General 06/22/06 documented as of this encounter
--- OUTSIDE RECORDS SUMMARY | 2024-09-26 12:20 | XMS_ITS | Encounter Summary ---
Author Organization [facility] Address [address] [place] [address] Care Team Providers Care Fruit And Vegetable Parer Name Role Phone Neftali Ocampo MD Primary Care Provider [phone] Encounter Details Date Type Department Care Team (Late st Contact Info) Description 09/26/2020 Lab Requisition [facility] D[facility] [address] [facility] [place] [id number] Vj Barkley MD [address] [place] [address] Social History Tobacco Use Types Packs/Day Years [...] Priority Date/Time Associated Diagnosis Comments DERMATOPATHOLOGY Routine 09/25/2020 12:0 0 AM LAND ACQUISITION MANAGER documented in this encounter Results * DERMATOPATHOLOGY (09/25/2020 12:00 AM LAND ACQUISITION MANAGER) Case Report Dermatopathology Report ? Case: [id number] ? Authorizing Provider: ??Vj Barkley MD ?Collected: ? 09/25/2020 12:00 AM ? Ordering Location: ? [facility] ?Received: ?09/26/2020 12:34 PM ? Pathologist: ? Bonifacio Mccarthy MD ? Specimens: ?? A) - Skin, left upper outer arm ? B) - Skin, right lateral upper back ? 1 2:20 PM [facility] DERMATOPATHOLOGY LABORATORY Final Diagnosis Specimen A. 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 SKIN, right lateral upper back: BASAL CELL CARCINOMA, NODULAR TYPE (C44.519) 1 2:20 PM [facility] DERMATOPATHOLOGY LABORATORY Clinical History A-B: R/O BCC. 1 2:20 PM [facility] DERMATOPATHOLOGY LABORATORY Gross Description Specimen A: Received is one formalin filled container labeled with the patient's name and designated left upper outer arm. The specimen consists of a curettage and desiccation biopsy measuring [id number]. Jar 0. Specimen B: Received is one formalin filled container labeled with the patient's name and designated right lateral upper back. The specimen consists of a curettage and desiccation biopsy measuring [id number]. Jar 0. 1 2:20 PM [facility] DERMATOPATHOLOGY LABORATORY Microscopic Description Specimen A. SKIN, left upper outer arm: Attached to the undersurface of the epidermis, there are small aggregates of basaloid cells with a high nuclear to cytoplasmic ratio and peripheral palisading. Specimen B. SKIN, right lateral upper back: Within the dermis there are aggregates of basaloid cells with a high nuclear to cytoplasmic ratio and peripheral palisading. 1 2:20 PM LAND ACQUISITION MANAGER DERMATOPATHOLOGY LABORATORY Disclaimer An external and internal positive and negative controls are appropriate for the histochemical, immunohistochemical and immunofluorescence stain(s) in this case (if any), except where stated explicitly. The performance characteristics of the stain(s) cited in this report were developed and its performance characteristic determined by the Dermatopathology Laboratory at [facility], directed by Dr. Cheo Mccarthy. These tests need not be, and therefore are not, approved by the [place] Food and Drug Administration. The tests are used for clinical purposes. Billing Codes Specimen Charges Stain Charges 73767 00051 1 1 1 2:20 PM LAND ACQUISITION MANAGER DERMATOPATHOLOGY LABORATORY Embedded Images 1 2:20 PM LAND ACQUISITION MANAGER DERMATOPATHOLOGY LABORATORY Pathology/Cytology TISSUE SPECIMEN FROM SKIN / Unknown 09/25/2020 09/26/2020 12:34 PM LAND ACQUISITION MANAGER Miscellaneous samples (specimen) TISSUE SPECIMEN FROM SKIN / Unknown 09/25/2020 09/26/2020 12:34 PM LAND ACQUISITION MANAGER Vj Barkley MD LAB - PATHOLOGY/CYTO LOGY ORDERABLES DERMATOPATHOLOGY LABORATORY [facility] - Department of Dermatology [address], [address] [phone] documented in this encounter Visit Diagnoses Not on filedocumented in this encounter Care Teams Fruit And Vegetable Parer Relationship Specialty Start Date End Date Neftali Ocampo MD [address] [place] [address] PCP - General 08/28/11 documented as of this encounter
--- OUTSIDE RECORDS SUMMARY | 2024-09-26 12:20 | XMS_ITS | Encounter Summary ---
Author Organization [facility] Address [address] [place] [address] Care Team Providers Care State Fire Marshal Name Role Phone Aarti Ayala MD Primary Care Provider [phone] Encounter Details Date Type Department Care Team (Late st Contact Info) Description 06/22/2006 Outpatient Historical [facility] AUDIOLOGY Mario Penn MD NO ADDRESS ON FILE SENSRY HEARNG LOSS,BILAT (Primary Dx) Social History Tobacco Use Types Packs/Day Years Used Date Smoking Tobacco: Never Assessed Comments Unknown Sex and Gender Information Value Date Recorded Sex Assigned at Not on file Legal Sex Female 4:49 AM PLATFORM LOADER Gender Identity Not on file Sexual Orientation Not on file documented as of this encounter Plan of Treatment Not on file documented as of this encounter Visit Diagnoses Diagnosis Sensory hearing loss, bilateral- Primary documented in this encounter Care Teams State Fire Marshal Relationship Specialty Start Date End Date Aarti Ayala MD [address] [place] [address] PCP - General 06/22/06 documented as of this encounter
--- OUTSIDE RECORDS SUMMARY | 2024-09-26 12:20 | XMS_ITS | Referral Summary ---
Author Organization [facility] Address [address] [place] [address] Care Team Providers Care Administration Intern Name Role Phone Neftali Ocampo MD Primary [...] 08/14/2020 Assessment & Plan (08/14/2020 5:08 PM HOOP PUNCH AND COILER OPERATOR): EKG shows incomplete right bundle branch block and nonspecific T-wave abnormalities. Because of this, a stress test without imaging would not be helpful. Jaw pain 08/14/2020 Assessment & Plan (08/14/2020 5:07 PM HOOP PUNCH AND COILER OPERATOR): Nonexertional episodes of left jaw pain in [...] Hypothyroidism Assessment & Plan (08/14/2023 10:43 AM HOOP PUNCH AND COILER OPERATOR): Patient on Levothyroxine for many years. Patient is clinically euthyroid TSH was normal at 3.4 on 07/12/23 Plan: Continue Levothyroxine 112 mcg/day The proper way of taking Levothyroxine reviewed with patient. She will follow up with new Auto Adjudication Specialist in 6 month Assessment & Plan (02/12/2023 [...] Hypercholesteremia Assessment & Plan (08/14/2020 5:07 PM HOOP PUNCH AND COILER OPERATOR): Despite a previous history of not tolerating [...] diet Assessment & Plan (08/14/2020 5:07 PM HOOP PUNCH AND COILER OPERATOR): Blood pressure is adequately controlled on current [...] on current regimen. No change was made. Social History Tobacco Use Types Packs/Day Years Used Date Smoking Tobacco: Former Smokeless Tobacco: Never Tobacco Cessation:Counseling Given: Not Answered Comments:Smoking History Packs/day: 0.25 Packs Alcohol Use Standard Drinks/Week Comments No 0 (1 standard drink = 0.6 oz pur e alcohol) [facility] Utilities Answer Date Recorded In the past 12 months has [employer], or water [employer] threatened to shut off services in your [...] week 07/13/2023 How often do you attend [facility] or rastafari services? Never 07/13/2023 Do you belong to any clubs o r organizations such as baptism groups, unions, fraternal or athletic groups, or [...] place to sleep or slept in a long term (including now)? No 07/13/2023 Personal Safety Answer [...] on file Legal Sex Female 11:32 PM HOOP PUNCH AND COILER OPERATOR Gender Identity Not on file Sexual Orientation Not on file Last Filed Vital Signs Vital Sign Reading Time Taken Comments Blood Pressure 132/70 08/14/2023 10:10 AM HOOP PUNCH AND COILER OPERATOR Pulse 88 08/06/2023 10:48 AM HOOP PUNCH AND COILER OPERATOR Temperature 36.4 ??C (97.6 ??F) 07/13/2023 7:46 AM CS T Respiratory Rate 14 07/13/2023 7:46 AM HOOP PUNCH AND COILER OPERATOR Oxygen Saturation 92% 08/06/2023 10: 48 AM HOOP PUNCH AND COILER OPERATOR Inhaled Oxygen Concentration - - Weight 85.2 kg (187 lb 12.8 oz) 023 10:10 AM HOOP PUNCH AND COILER OPERATOR Height 165.1 cm (5' 5 ) 08/14/2023 10:1 0 AM HOOP PUNCH AND COILER OPERATOR Body Mass Index 31.25 08/14/2023 10:10 AM HOOP PUNCH AND COILER OPERATOR Plan of Treatment Not on file Insurance [place] [address] MEDICARE COMMERCIAL GENERIC Advance Directives For more information, please contact: [phone] * Full Code (Latest Code Status on File) Date Activated Date Inactivated Comments 07/12/2023 5:18 PM 07/13/2023 2:43 PM Care Teams Administration Intern Relationship Specialty Start Date End Date Neftali Ocampo MD [address] [place] [address] PCP - General 12/11/11
--- OUTSIDE RECORDS SUMMARY | 2024-09-26 12:20 | XMS_ITS | Encounter Summary ---
Author Organization [facility] Address [address] [place] [address] Care Team Providers Care Crusher And Blender Operator Name Role Phone Neftali Ocampo MD Primary Care Provider [phone] Encounter Details Date Type Department Care Team (Late st Contact Info) Description 07/07/2019 Lab Requisition [facility] Care DermPath Lab [address] [phone] Vj Barkley MD [address] [place] [address] Social History Tobacco Use Types Packs/Day Years [...] Priority Date/Time Associated Diagnosis Comments DERMATOPATHOLOGY Routine 07/06/2019 12:0 0 AM TYPING SECTION CHIEF documented in this encounter Results * DERMATOPATHOLOGY (07/06/2019 12:00 AM TYPING SECTION CHIEF) Case Report Dermatopathology Report ? Case: [id number] ? Authorizing Provider: ??Vj Barkley MD ?Collected: ? 07/06/2019 12:00 AM ? Ordering Location: ? [facility] DermPath Lab ?Received: ?07/07/2019 01:58 PM ? Pathologist: ? Tiffany Gibbons MD ? Specimens: ?? A) - Skin, philtrum at edge of frances lip ? B) - Skin, right upper back ? 9 1:24 PM TYPING SECTION CHIEF DERMATOPATHOLOGY LABORATORY Final Diagnosis Specimen A. 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 SKIN, right upper back: BASAL CELL CARCINOMA, SUPERFICIAL MULTIFOCAL (C44.519) 9 1:24 PM [facility] DERMATOPATHOLOGY LABORATORY Clinical History A: R/O SCC. B: R/O BCC. 9 1:24 PM [facility] DERMATOPATHOLOGY LABORATORY Gross Description Specimen A: Received is one formalin filled container labeled with the patient's name and designated philtrum at edge of frances lip. The specimen consists of a shave biopsy measuring [id number]. Jar 0. Specimen B: Received is one formalin filled container labeled with the patient's name and designated right upper back. The specimen consists of a curettage and desiccation biopsy measuring [id number]. Jar 0. 1:24 PM [facility] DERMATOPATHOLOGY LABORATORY Microscopic Description Specimen A. SKIN, philtrum at edge of frances lip: The epidermis shows parakeratosis, full thickness disorderly maturation of keratinocytes, mitoses at different levels, and dyskeratotic cells. The lesion focally extends to the base of the biopsy as follicular extension. Additional deeper sections were obtained and reviewed. Specimen B. SKIN, right upper back: Attached to the undersurface of the epidermis, there are small aggregates of basaloid cells with a high nuclear to cytoplasmic ratio and peripheral palisading. 1:24 PM [facility] DERMATOPATHOLOGY LABORATORY Disclaimer An external and internal positive and negative controls are appropriate for the histochemical, immunohistochemical and immunofluorescence stain(s) in this case (if any), except where stated explicitly. The performance characteristics of the stain(s) cited in this report were developed and its performance characteristic determined by the Dermatopathology Laboratory at [facility], directed by Dr. Cheo Mccarthy. These tests need not be, and therefore are not, approved by the [place] Food and Drug Administration. The tests are used for clinical purposes. Billing Codes Specimen Charges Stain Charges [id number] 1 1 1:24 PM TYPING SECTION CHIEF DERMATOPATHOLOGY LABORATORY Embedded Images 1:24 PM TYPING SECTION CHIEF DERMATOPATHOLOGY LABORATORY Pathology/Cytology TISSUE SPECIMEN FROM SKIN / Unknown 07/06/2019 07/07/2019 1:58 PM TYPING SECTION CHIEF Miscellaneous samples (specimen) TISSUE SPECIMEN FROM SKIN / Unknown 07/06/2019 07/07/2019 1:58 PM TYPING SECTION CHIEF Vj Barkley MD LAB - PATHOLOGY/CYTO LOGY ORDERABLES DERMATOPATHOLOGY LABORATORY [facility] - Department of Dermatology [address] [facility] [address] [facility] 5th [address] Lab [address] [phone] documented in this encounter Visit Diagnoses Not on filedocumented in this encounter Care Teams Crusher And Blender Operator Relationship Specialty Start Date End Date Neftali Ocampo MD [address] [place] [address] PCP - General 08/28/11 documented as of this encounter
--- OUTSIDE RECORDS SUMMARY | 2024-09-26 12:20 | XMS_ITS | Clinical Summary ---
Author Organization [facility] Address [address] Attn: Epic Prelude ADT ROSSY HUNTER [address] Care Team Providers Care Radiopharmacist Name Role Phone Aarti Ayala MD Primary Care Provider [phone] Social History Tobacco Use Types Packs/Day Years Used Date Smoking Tobacco: Never Assessed Comments Unknown Sex and Gender Information Value Date Recorded Sex Assigned at Not on file Legal Sex Female 4:49 AM AUDIENCE COORDINATOR Gender Identity Not on file Sexual Orientation Not on file Plan of Treatment Health Maintenance Due Date Last Done Comments DTAP/TDAP/TD VACCINES (1 - Tdap) 1965 PNEUMOCOCCAL VACCINE 65+ YEARS (1 of 1 - PCV) 06/18/19 96 ZOSTER VACCINE (1 of 2) 1996 OSTEOPOROSIS SCREENING 2011 RSV VACCINE (60+ or ) (1 - 1-dose 75+ series) 2021 INFLUENZA VACCINE (#1) 2024 Care Teams Radiopharmacist Relationship Specialty Start Date End Date Aarti Ayala MD [address] [place] [phone] PCP - General 06/22/06
[2024-09-26 12:26] LABS: Thyroid Stimulating Hormone 0.405 uIU/mL (0.465-4.680)
== END 2024-09-26 11:17 | disposition home or self-care (01) ==
PROVIDERS: PCP Family Medicine; Visit Provider Family Medicine
DX: E03.9 Hypothyroidism, unspecified (principal); I10 Essential (primary) hypertension
CPT/HCPCS: 36415; 80053; 84443

== ENCOUNTER 2024-11-28 15:17 | Outpatient (CLI) | payer MEDICARE, SELFPAY ==
--- NOTE | ~2024-11-28 | MM_ITS ---
EXAMINATION: MM screening [facility] BI w [place] HISTORY: Screening mammogram TECHNIQUE: Craniocaudal and mediolateral oblique 3-D tomosynthesis images were obtained and synthetic 2-D images were generated. CAD analysis was submitted and interpreted. COMPARISON: 04/23/2023, 09/01/2019, 08/30/2018 BREAST PARENCHYMAL COMPOSITION:Not Dense. There are scattered areas of fibroglandular density. FINDINGS: No suspicious mass, calcification, or architectural distortion are identified in either tosin ast to suggest malignancy. There has been no suspicious interval change. IMPRESSION: No mammographic evidence of malignancy. Recommend routine screening mammography in one year. BI-RADS Category 1: Negative Reviewed, dictated and finalized at location .
--- OUTSIDE RECORDS SUMMARY | 2024-11-28 16:50 | XMS_ITS | Encounter Summary ---
Author Organization [facility] Address [address] [facility] [place] [address] Care Team Providers Care Garage Helper Name Role Phone Neftali Ocampo MD Primary Care Provider [phone] Encounter Details Date Type Department Care Team (Late st Contact Info) Description 07/07/2019 Lab Requisition [facility] DermPath Lab [address] [facility] [place] [place] [phone] Vj Barkley MD [address] [place] [address] Social History Tobacco Use Types Packs/Day Years [...] Comments DERMATOPATHOLOGY Routine 07/06/2019 12:0 0 AM MILLING PLANER OPERATOR documented in this encounter Results * DERMATOPATHOLOGY (07/06/2019 12:00 AM MILLING PLANER OPERATOR) Case Report Dermatopathology Report Case: [id number] Authorizing Provider: Vj Barkley MD Collected: 07/06/2019 12:00 AM Ordering Location: [facility] DermPath Lab Received: 07/07/2019 01:58 PM Pathologist: Tiffany Gibbons MD Specimens: A) - Skin, philtrum at edge of frances lip B) - Skin, right upper back 1:24 PM [facility] DERMATOPATHOLOGY LABORATORY Final Diagnosis Specimen A. 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 SKIN, right upper back: BASAL CELL CARCINOMA, SUPERFICIAL MULTIFOCAL (C44.519) 1:24 PM [facility] DERMATOPATHOLOGY LABORATORY Clinical History A: R/O SCC. B: R/O BCC. 1:24 PM [facility] DERMATOPATHOLOGY LABORATORY Gross Description Specimen A: Received is one formalin filled container labeled with the patient's name and designated philtrum at edge of frances lip. The specimen consists of a shave biopsy measuring [id number]. Jar 0. Specimen B: Received is one formalin filled container labeled with the patient's name and designated right upper back. The specimen consists of a curettage and desiccation biopsy measuring [id number]. Jar 0. 1:24 PM [facility] DERMATOPATHOLOGY LABORATORY Microscopic Description Specimen A. [...] cytoplasmic ratio and peripheral palisading. 1:24 PM [facility] DERMATOPATHOLOGY LABORATORY Disclaimer An external and internal positive and negative controls are appropriate for the histochemical, immunohistochemical and immunofluorescence stain(s) in this case (if any), except where stated explicitly. The performance characteristics of the stain(s) cited in this report were developed and its performance characteristic determined by the Dermatopathology Laboratory at [facility], directed by Dr. Cheo Mccarthy. These tests need not be, and therefore are not, approved by the [place] Food and Drug Administration. The tests are used for clinical purposes. Billing Codes Specimen Charges Stain Charges 82972 [id number] 1 1 9 1:24 PM MILLING PLANER OPERATOR DERMATOPATHOLOGY LABORATORY Embedded Images 9 1:24 PM MILLING PLANER OPERATOR DERMATOPATHOLOGY LABORATORY Pathology/Cytology TISSUE SPECIMEN FROM SKIN / Unknown 07/06/2019 07/07/2019 1:58 PM MILLING PLANER OPERATOR Miscellaneous samples (specimen) TISSUE SPECIMEN FROM SKIN / Unknown 07/06/2019 07/07/2019 1:58 PM MILLING PLANER OPERATOR Vj Barkley MD LAB - PATHOLOGY/CYTO LOGY ORDERABLES DERMATOPATHOLOGY LABORATORY [facility] - Department of Dermatology [address] [place] [address] [address] [phone] documented in this encounter Visit Diagnoses Not on filedocumented in this encounter Care Teams Garage Helper Relationship Specialty Start Date End Date Neftali Ocampo MD [address] [place] [address] PCP - General 08/28/11 documented as of this encounter
--- OUTSIDE RECORDS SUMMARY | 2024-11-28 16:50 | XMS_ITS | Referral Summary ---
Author Organization [facility] Address [address] [place] [address] Care Team Providers Care Groover Runner Name Role Phone Neftali Ocampo MD Primary Care Provider Encounters Date Type Department Care Team Description 10/03/2024 11:00 AM RAMP AGENT Office Visit [facility] Cardiology [address] [place] [address] Jose Nielsen MD Paroxysmal supraventricular tachycardia (Primary Dx) from Last 3 Months Allergies Active Allergy Reactions Criticality Noted Date [...] mouth daily 90 tablet 3 03/26/2023 Active omega-3 fatty acids-fish oil 300-1,000 mg capsule Take 2 capsules (2 g total) by mouth daily Active losartan (COZAAR) 50 mg tablet TAKE 1 TABLET (50MG) BY MOUTH ONCE DAILY 08/23/2024 Active Active Problems Problem Noted Date Diagnosed Date H/O cardiac radiofrequency ablation 08/06/2023 Near syncope 07/12/2023 Chronic fatigue 02/12/2023 Assessment & Plan (02/12/2023 1:57 PM CDT): Not caused by hypothyroidism Could be related to sleep disorder - continue sleep study - recommended sleep specialist for evaluation. Abnormal ECG 08/14/2020 Assessment & Plan (08/14/2020 5:08 PM RAMP AGENT): EKG shows incomplete right bundle branch block and nonspecific T-wave abnormalities. Because of this, a stress test without imaging would not be helpful. Jaw pain 08/14/2020 Assessment & Plan (08/14/2020 5:07 PM RAMP AGENT): Nonexertional episodes of left jaw pain in [...] Hypothyroidism Assessment & Plan (08/14/2023 10:43 AM RAMP AGENT): Patient on Levothyroxine for many years. Patient is clinically euthyroid TSH was normal at 3.4 on 07/12/23 Plan: Continue Levothyroxine 112 mcg/day The proper way of taking Levothyroxine reviewed with patient. She will follow up with new Emt/Dispatcher in 6 month Assessment & Plan (02/12/2023 [...] Hypercholesteremia Assessment & Plan (08/14/2020 5:07 PM RAMP AGENT): Despite a previous history of not tolerating [...] diet Assessment & Plan (08/14/2020 5:07 PM RAMP AGENT): Blood pressure is adequately controlled on current [...] drink = 0.6 oz pur e alcohol) [facility] Utilities Answer Date Recorded In the past 12 months has [employer], gas, oil, or water [employer] threatened to shut off services in your [...] week 07/13/2023 How often do you attend [facility] or hindu services? Never 07/13/2023 Do you belong to any clubs o r organizations such as hindu groups, unions, fraternal or athletic groups, or [...] place to sleep or slept in a prison (including now)? No 07/13/2023 Personal Safety Answer [...] on file Legal Sex Female 11:32 PM RAMP AGENT Gender Identity Not on file Sexual Orientation Not on file Last Filed Vital Signs Vital Sign Reading Time Taken Comments Blood Pressure 118/80 10/03/2024 11:10 AM RAMP AGENT Pulse 71 10/03/2024 11:10 AM RAMP AGENT Temperature 36.4 C (97.6 F) 07/13/2023 7:46 AM RAMP AGENT Respiratory Rate 14 07/13/2023 7:46 AM RAMP AGENT Oxygen Saturation 94% 10/03/2024 11:10 AM RAMP AGENT Inhaled Oxygen Concentration - - Weight 83.1 kg (183 lb 1.6 oz) 10/03/2024 11:10 AM RAMP AGENT Height 165.1 cm (5' 5 ) 10/03/2024 11:10 AM RAMP AGENT Body Mass Index 30.47 10/03/2024 11:10 AM RAMP AGENT Plan of Treatment Not on file Insurance MEDICARE [facility] Address: [facility] [address] [place] [address] MEDICARE MEDICARE COMMERCIAL GENERIC Advance Directives For more information, please contact: [phone] * Full Code (Latest Code Status on File) Date Activated Date Inactivated Comments 07/12/2023 5:18 PM 07/13/2023 2:43 PM Care Teams Groover Runner Relationship Specialty Start Date End Date Neftali Ocampo MD [address] [place] [address] PCP - General 12/11/11
--- OUTSIDE RECORDS SUMMARY | 2024-11-28 16:50 | XMS_ITS | Encounter Summary ---
Author Organization [facility] Address [address] [place] [address] Care Team Providers Care Diving Fisher Name Role Phone Aarti Ayala MD Primary [...] on file Legal Sex Female 4:49 AM CIVIL ENGINEERING DESIGNER Gender Identity Not on file Sexual Orientation Not on file documented as of this encounter Plan of Treatment Not on file documented as of this encounter Visit Diagnoses Diagnosis Sensory hearing loss, bilateral- Primary documented in this encounter Care Teams Diving Fisher Relationship Specialty Start Date End Date Aarti Ayala MD [address] [place] [address] PCP - General 06/22/06 documented as of this encounter
--- OUTSIDE RECORDS SUMMARY | 2024-11-28 16:50 | XMS_ITS | Continuity of Care Document ---
Demographics Address [address] [place] [address] Work Phone Email Address [facility] 2x3 as of 09/20 Preferred Language Unknown Marital Status Restorationist Affiliation Unknown Race Unknown Ethnic Group Unknown Author Organization [facility] Address [address] [facility] [facility] [place] [address] Phone Care Team Providers Care Senior Engineering Specialist Name Role Phone Keshia MS, OTR/L, PAMELAT, Kristy Unavailable Unavailable Procedures Procedure Date THERAPEUTIC EXERCISES MANUAL THERAPY ULTRASOUND THERAPY THERAPEUTIC EXERCISES MANUAL THERAPY ULTRASOUND THERAPY THERAPEUTIC EXERCISES MANUAL THERAPY ULTRASOUND THERAPY HOT/COLD PACK THERAPEUTIC EXERCISES MANUAL THERAPY Forearm OT EVALUATION THERAPEUTIC EXERCISES MANUAL THERAPY ULTRASOUND THERAPY Advance Directives Directive Yes / No Effective Date File Name No Information Encounters Encounter Description Practice Location Reason(s) For Visit Diagnoses Date Provider Providers Copied on Encounter [facility], [id number], tel:[phone] Lindsay No Information 3 Keshia Wagner. [address] [facility], [address], [facility], [place]. tel:[phone] [facility], [place], [place], [id number], tel:[phone] Lindsay No Information 3 Keshia Wagner. [address] [facility] [address], [place], [facility], . tel:[phone], [id number], tel:[phone] Ish No Information 0-201 3 Hasukhdeep Steinerfer. [address] [place] [address], [facility] [address], [place], [facility], . tel:[phone], [id number], tel:[phone] Ish No Information 8 3 Haotisld Kristy. [address] [place] [address], [facility] [address], [place], [place], [facility], . tel:[phone], [id number], tel:[phone] Lindsay No Information 3 Hasukhdeep Steinerfer. [address] [place] [address], [facility] [address], [place], [facility], . tel:[phone], [id number], tel:[phone] Lindsay Pain in joint involving hand 3 3 Hauschielina Steinerfer. [address] [place] [address], [facility] [address], [place], [facility], . tel:[phone] Family History Family Member Type Diagnosis Age At Onset No Information Payers Payer name Insurance type Covered alliance party ID Authorjamesa ticorbin(s) Medicare [place] [id number] [facility] CI [id number] Social History Type Description Quantity Date Captured Comments Sex Female Smoking Status No Information Chief Complaint And Reason For Visit No Information Reason For Referral Reason For Referral No Information History Of Present Illness Encounter Date Complaint History Of Prese nt Illness No Information Functional Status Date Functional Assessmen t No Information Instructions Date Instruction Additional Infor mation No Information Assessments Type Assessment Date No Information Patient Care Teams Name Effective Dates (start - stop) Status Members No Information
--- OUTSIDE RECORDS SUMMARY | 2024-11-28 16:50 | XMS_ITS | Clinical Summary ---
Author Organization [facility] Address [address] [place] [address] Care Team Providers Care Block Mason Name Role Phone Neftali Ocampo MD Primary Care Provider Source Comments [facility],non-owned Affiliates and Associated Physician Practices is amultiple site organization consisting of ambulatory clinics and hospital sitesin [place], [place], [place] and [place]. This disclosure is being madepursuant to the Care Everywhere program and may not contain all information available regarding this patient. Last updated 18.[facility] Allergies Active Allergy Reactions Criticality Noted Date [...] Comments Blood Pressure 136/78 07/31/2017 1:19 PM REAL ESTATE CLOSER Pulse 62 07/31/2017 1:19 PM REAL ESTATE CLOSER Temperature 36.8 C (98.2 F) 07/31/2017 1:19 PM REAL ESTATE CLOSER Respiratory Rate 12 07/31/2017 1:19 PM REAL ESTATE CLOSER Oxygen Saturation 96% 07/31/2017 1:19 PM REAL ESTATE CLOSER Inhaled Oxygen Concentration - - Weight 78.4 kg (172 lb 14.4 oz) 07/31/2017 1:19 PM REAL ESTATE CLOSER Height 165.1 cm (5' 5 ) 07/31/2017 1:19 PM REAL ESTATE CLOSER Body Mass Index 28.77 07/31/2017 1:19 PM REAL ESTATE CLOSER Plan of Treatment Health Maintenance Due Date Last Done Comments BONE DENSITY TESTING 1945 MEDICARE AWV 12 MONTHS 1945 HEPATITIS C SCREENING 06/13/1964 [...] to complete this topic MENINGOCOCCAL (Group B) VACC INE SHARED DECISION-MAKING Aged Out No longer eligibl e based on patient's age to complete this topic MENINGOCOCCAL GROUPS A/C/Y/W VACCINE Aged Out No longer eligible b ased on patient's age to complete this topic Care Teams Block Mason Relationship Specialty Start Date End Date Neftali Ocampo MD [address] [place] [address] PCP - General 08/28/11
--- OUTSIDE RECORDS SUMMARY | 2024-11-28 16:50 | XMS_ITS | Clinical Summary ---
Author Organization [facility] Address [address] [place] [address] Care Team Providers Care Irish Moss Gatherer Name Role Phone Neftali Ocampo MD Primary [...] 08/14/2020 Assessment & Plan (08/14/2020 5:08 PM SPECIAL EDUCATION TEACHERS): EKG shows incomplete right bundle branch block and nonspecific T-wave abnormalities. Because of this, a stress test without imaging would not be helpful. Jaw pain 08/14/2020 Assessment & Plan (08/14/2020 5:07 PM SPECIAL EDUCATION TEACHERS): Nonexertional episodes of left jaw pain in [...] Hypothyroidism Assessment & Plan (08/14/2023 10:43 AM SPECIAL EDUCATION TEACHERS): Patient on Levothyroxine for many years. Patient is clinically euthyroid TSH was normal at 3.4 on 07/12/23 Plan: Continue Levothyroxine 112 mcg/day The proper way of taking Levothyroxine reviewed with patient. She will follow up with new Science Liaison in 6 month Assessment & Plan (02/12/2023 [...] Hypercholesteremia Assessment & Plan (08/14/2020 5:07 PM SPECIAL EDUCATION TEACHERS): Despite a previous history of not tolerating [...] diet Assessment & Plan (08/14/2020 5:07 PM SPECIAL EDUCATION TEACHERS): Blood pressure is adequately controlled on current [...] on current regimen. No change was made. 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 Never 07/13/2023 Do you belong to any clubs o r organizations such as anglican groups, unions, fraternal or athletic groups, or [...] on file Legal Sex Female 11:32 PM SPECIAL EDUCATION TEACHERS Gender Identity Not on file Sexual Orientation Not on file Obstetrics History Last Filed Vital Signs Vital Sign Reading Time Taken Comments Blood Pressure 118/80 10/03/2024 11:10 AM SPECIAL EDUCATION TEACHERS Pulse 71 10/03/2024 11:10 AM SPECIAL EDUCATION TEACHERS Temperature 36.4 C (97.6 F) 07/13/2023 7:46 AM SPECIAL EDUCATION TEACHERS Respiratory Rate 14 07/13/2023 7:46 AM SPECIAL EDUCATION TEACHERS Oxygen Saturation 94% 10/03/2024 11:10 AM SPECIAL EDUCATION TEACHERS Inhaled Oxygen Concentration - - Weight 83.1 kg (183 lb 1.6 oz) 10/03/2024 11:10 AM SPECIAL EDUCATION TEACHERS Height 165.1 cm (5' 5 ) 10/03/2024 11:10 AM SPECIAL EDUCATION TEACHERS Body Mass Index 30.47 10/03/2024 11:10 AM SPECIAL EDUCATION TEACHERS Plan of Treatment Health Maintenance Due Date Last Done Comments Depression Screening 1945 Hepatitis C Screening 1945 Osteoporosis Screening-Bone Density Scan 1946 DTaP/Tdap/Td Vaccine (1 - Tdap) 1957 Hepatitis B Screening 1964 Zoster Vaccine (1 of 2) 1996 Well Visit 65+ 2011 Pneumococcal vaccine 65+ (2 of 2 - PPSV23) 09/26/2016 09/26/2015 Influenza Vaccine (#1) 2024 09/25/2015, 2012 Fall Risk Assessment 07/13/2024 07/13/2023 Insurance MEDICARE MEDICARE MEDICARE COMMERCIAL [facility] Advance Directives For more information, please contact: [phone] * Full Code (Latest Code Status on File) Date Activated Date Inactivated Comments 07/12/2023 5:18 PM 07/13/2023 2:43 PM Care Teams Irish Moss Gatherer Relationship Specialty Start Date End Date Neftali Ocampo MD [address] [place] [address] PCP - General 12/11/11
--- OUTSIDE RECORDS SUMMARY | 2024-11-28 16:50 | XMS_ITS | Encounter Summary ---
Author Organization [facility] Address [address] [place] [address] Care Team Providers Care Photograph Enlarger Name Role Phone Neftali Ocampo MD Primary Care Provider [phone] Encounter Details Date Type Department Care Team (Late st Contact Info) Description 02/04/2023 Lab Requisition [facility] - DermPath Lab [address] [facility] [place] [id number] Vj Barkley MD [address] [place] [address] Social History Tobacco Use Types Packs/Day Years [...] 12:00 AM CDT) Case Report Dermatopathology Report Case: [id number] Authorizing Provider: Vj Barkley MD Collected: 02/03/2023 12:00 AM Ordering Location: [facility] DermPath Lab Received: 02/04/2023 01:40 PM Pathologist: Bonifacio Mccarthy MD Specimen: Skin, right radial volar prox forearm 3:54 PM CDT DERMATOPATHOLOGY LABORATORY Final Diagnosis Specimen A. 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 Check Margins. 3:54 PM CDT DERMATOPATHOLOGY LABORATORY Gross Description Specimen A: Received is one formalin filled container labeled with the patients name and designated right radial volar prox forearm. The specimen consists of a shave removal measuring [id number] mm. Jar 0. 3:54 PM CDT DERMATOPATHOLOGY [...] determined by the Dermatopathology Laboratory at [facility], directed by Dr. Cheo Mccarthy. These tests need not be, and therefore are not, approved by the [place] Food and Drug Administration. The tests are used for clinical purposes. Billing Codes Specimen Charges Stain Charges 69114 1 14432 1 3:54 PM CDT DERMATOPATHOLOGY LABORATORY Embedded Images 3:54 PM CDT DERMATOPATHOLOGY LABORATORY Pathology/Cytolog y TISSUE SPECIMEN FROM SKIN / Unknown 02/03/2023 02/04/2023 1:40 PM CDT Vj Barkley MD LAB - PATHOLOGY/CYTO LOGY ORDERABLES DERMATOPATHOLOGY LABORATORY [facility] - Department of Dermatology [facility] Medicine [address] [place] [address], [address] [phone] documented in this encounter Visit Diagnoses Not on filedocumented in this encounter Care Teams Photograph Enlarger Relationship Specialty Start Date End Date Neftali Ocampo MD [address] [place] [address] PCP - General 08/28/11 documented as of this encounter
--- OUTSIDE RECORDS SUMMARY | 2024-11-28 16:50 | XMS_ITS | Encounter Summary ---
Author Organization [facility] Address [address] [facility] [place] [address] Care Team Providers Care Meat Processing Center Manager Name Role Phone Neftali Ocampo MD Primary Care Provider [phone] Encounter Details Date Type Department Care Team (Late st Contact Info) Description 09/26/2020 Lab Requisition [facility] DermPath Lab [address] [facility] [address] [place] [phone] Vj Barkley MD [address] [place] [address] Social History Tobacco Use Types Packs/Day Years [...] Comments DERMATOPATHOLOGY Routine 09/25/2020 12:0 0 AM CHIEF JUVENILE PROBATION OFFICER documented in this encounter Results * DERMATOPATHOLOGY (09/25/2020 12:00 AM CHIEF JUVENILE PROBATION OFFICER) Case Report Dermatopathology Report Case: [id number] Authorizing Provider: Vj Barkley MD Collected: 09/25/2020 12:00 AM Ordering Location: [facility] DermPath Lab Received: 09/26/2020 12:34 PM Pathologist: Bonifacio Mccarthy MD Specimens: A) - Skin, left upper outer arm B) - Skin, right lateral upper back 2:20 PM [facility] DERMATOPATHOLOGY LABORATORY Final Diagnosis Specimen A. 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 SKIN, right lateral upper back: BASAL CELL CARCINOMA, NODULAR TYPE (C44.519) 1 2:20 PM [facility] DERMATOPATHOLOGY LABORATORY Clinical History A-B: R/O BCC. 2:20 PM [facility] DERMATOPATHOLOGY LABORATORY Gross Description Specimen A: Received is one formalin filled container labeled with the patient's name and designated left upper outer arm. The specimen consists of a curettage and desiccation biopsy measuring [id number]. Jar 0. Specimen B: Received is one formalin filled container labeled with the patient's name and designated right lateral upper back. The specimen consists of a curettage and desiccation biopsy measuring [id number]. Jar 0. 1 2:20 PM [facility] DERMATOPATHOLOGY [...] ratio and peripheral palisading. 1 2:20 PM [facility] DERMATOPATHOLOGY LABORATORY Disclaimer An external and internal positive and negative controls are appropriate for the histochemical, immunohistochemical and immunofluorescence stain(s) in this case (if any), except where stated explicitly. The performance characteristics of the stain(s) cited in this report were developed and its performance characteristic determined by the Dermatopathology Laboratory at [facility], directed by Dr. Cheo Mccarthy. These tests need not be, and therefore are not, approved by the [place] Food and Drug Administration. The tests are used for clinical purposes. Billing Codes Specimen Charges Stain Charges 79425 13181 1 1 1 2:20 PM [facility] DERMATOPATHOLOGY LABORATORY Embedded Images 2:20 PM CHIEF JUVENILE PROBATION OFFICER DERMATOPATHOLOGY LABORATORY Pathology/Cytology TISSUE SPECIMEN FROM SKIN / Unknown 09/25/2020 09/26/2020 12:34 PM CHIEF JUVENILE PROBATION OFFICER Miscellaneous samples (specimen) TISSUE SPECIMEN FROM SKIN / Unknown 09/25/2020 09/26/2020 12:34 PM CHIEF JUVENILE PROBATION OFFICER Vj Barkley MD LAB - PATHOLOGY/CYTO LOGY ORDERABLES DERMATOPATHOLOGY LABORATORY [facility] - Department of Dermatology [facility] Specialized Medicine [address] [place] [address], [address] [phone] documented in this encounter Visit Diagnoses Not on filedocumented in this encounter Care Teams Meat Processing Center Manager Relationship Specialty Start Date End Date Neftali Ocampo MD [address] [place] [address] PCP - General 08/28/11 documented as of this encounter
--- OUTSIDE RECORDS SUMMARY | 2024-11-28 16:50 | XMS_ITS | Encounter Summary ---
Author Organization [facility] Address [address] [facility] [place] [address] Care Team Providers Care Passenger Service Supervisor Name Role Phone Neftali Ocampo MD Primary Care Provider [phone] Encounter Details Date Type Department Care Team (Late st Contact Info) Description 01/22/2022 Lab Requisition [facility] DermPath Lab [address] [facility] [place] [phone] Vj Barkley MD [address] [place] [address] Social History Tobacco Use Types Packs/Day Years [...] AM CDT) Case Report Dermatopathology Report Case: [id number] Authorizing Provider: Vj Barkley MD Collected: 01/21/2022 12:00 AM Ordering Location: [facility] DermPath Lab Received: 01/22/2022 01:56 PM Pathologist: Bonifacio Mccarthy MD Specimen: Skin, left upper medial chest 2 2:57 PM CDT DERMATOPATHOLOGY LABORATORY Final [...] specimen consists of a shave removal measuring [id number] and it is inked. Jar 0. 2:57 PM CDT DERMATOPATHOLOGY LABORATORY Microscopic Description [...] characteristic determined by the Dermatopathology Laboratory at [facility], directed by Dr. Cheo Mccarthy. These tests need not be, and therefore are not, approved by the [place] Food and Drug Administration. The tests are used for clinical purposes. Billing Codes Specimen Charges Stain Charges 96472 1 2 2:57 PM CDT DERMATOPATHOLOGY LABORATORY Embedded Images 2 2:57 PM CDT DERMATOPATHOLOGY LABORATORY Pathology/Cytolog y TISSUE SPECIMEN FROM SKIN / Unknown 01/21/2022 01/22/2022 1:56 PM CDT Vj Barkley MD LAB - PATHOLOGY/CYTO LOGY ORDERABLES DERMATOPATHOLOGY LABORATORY [facility] - Department of Dermatology [address] [phone] documented in this encounter Visit Diagnoses Not on filedocumented in this encounter Care Teams Passenger Service Supervisor Relationship Specialty Start Date End Date Neftali Ocampo MD [address] [place] [address] PCP - General 08/28/11 documented as of this encounter
--- OUTSIDE RECORDS SUMMARY | 2024-11-28 16:50 | XMS_ITS | Encounter Summary ---
Author Organization [facility] Address [address] [place] [address] Attn: [place] [address] Care Team Providers Care Digital Printer Name Role Phone Aarti Ayala MD Primary Care Provider Encounter Details Date Type Department Care Team (Late st Contact Info) Description 05/30/1992 Outpatient Historical Sunil Guzman MD [address] [place] [phone] Social History Tobacco Use Types Packs/Day Years Used Date Smoking Tobacco: Never Assessed Comments Unknown Sex and Gender Information Value Date Recorded Sex Assigned at Not on file Legal Sex Female 4:49 AM INTERPRETER AND TRANSLATOR Gender Identity Not on file Sexual Orientation Not on file documented as of this encounter Plan of Treatment Not on file documented as of this encounter Visit Diagnoses Not on filedocumented in this encounter Care Teams Digital Printer Relationship Specialty Start Date End Date Aarti Ayala MD [address] [place] [address] PCP - General 06/22/06 documented as of this encounter
--- OUTSIDE RECORDS SUMMARY | 2024-11-28 16:50 | XMS_ITS | Clinical Summary ---
Author Organization [facility] Address [address] [facility] Attn: Epic Prelude ADT [place] [address] Care Team Providers Care Natural Resource Officer Name Role Phone Aarti Ayala MD Primary Care Provider [phone] Social History Tobacco Use Types Packs/Day Years Used Date Smoking Tobacco: Never Assessed Comments Unknown Sex and Gender Information Value Date Recorded Sex Assigned at Not on file Legal Sex Female 4:49 AM ORACLE DATABASE CONSULTANT Gender Identity Not on file Sexual Orientation Not on file Plan of Treatment Health Maintenance Due Date Last Done Comments DTAP/TDAP/TD VACCINES (1 - Tdap) 1965 PNEUMOCOCCAL VACCINE 50+ YEARS (1 of 1 - PCV) 06/18/19 96 ZOSTER VACCINE (1 of 2) 1996 OSTEOPOROSIS SCREENING 2011 RSV VACCINE (60+ or ) (1 - 1-dose 75+ series) 2021 INFLUENZA VACCINE (#1) 2024 Care Teams Natural Resource Officer Relationship Specialty Start Date End Date Aarti Ayala MD [address] [place] [address] PCP - General 06/22/06
--- OUTSIDE RECORDS SUMMARY | 2024-11-28 16:50 | XMS_ITS | Encounter Summary ---
Author Organization [facility] Address [address] [place] [address] Attn: [place] [address] Care Team Providers Care Orthopaedic Technologist Name Role Phone Aarti Ayala MD Primary Care Provider [phone] Encounter Details Date Type Department Care Team (Late st Contact Info) Description 10/19/1993 Outpatient Historical Sunil Guzman MD [address] [place] [phone] Social History Tobacco Use Types Packs/Day Years Used Date Smoking Tobacco: Never Assessed Comments Unknown Sex and Gender Information Value Date Recorded Sex Assigned at Not on file Legal Sex Female 4:49 AM RUBBER STAMP ASSEMBLER Gender Identity Not on file Sexual Orientation Not on file documented as of this encounter Plan of Treatment Not on file documented as of this encounter Visit Diagnoses Not on filedocumented in this encounter Care Teams Orthopaedic Technologist Relationship Specialty Start Date End Date Aarti Ayala MD [address] [place] [address] PCP - General 06/22/06 documented as of this encounter
--- OUTSIDE RECORDS SUMMARY | 2024-11-28 16:50 | XMS_ITS | Patient Health Record ---
Author Organization [facility] [employer] Address [address] Josue Jacobsen [facility] [address] [place], [place] [id number] Care Team Providers Care Cake Froster Name Role Phone ALFRED CRUZ Primary Care Provider Akua Ramirez Unavailable [phone] ALLERGIES Allergen (clinical drug ingredient) Drug/Non Drug Allergy documented on EMR Reaction Allergy Type Onset Date Status codeine codeine Unknown Drug Allergy Active REASON FOR REFERRAL No Information MEDICATIONS Medication SIG (Take, Route, Frequency, Duration) Notes Start Date End Date Status Lexapro 5 mg 2 tab(s) orally once a day Active levothyroxine 112 mcg (0.112 mg) 1 tab(s) orally once a day Active Klor-Con 10 10 mEq 1 tab(s) orally 2 times a day Active hydroCHLOROthiazide 12.5 mg 1 cap(s) ora lly once a day Active Voltaren Gel - for upper bod y joint 1% 2 g per joint topically 4 times a day to right shoulder for 30 days 10/18/2015 Active ergocalciferol 50,000 intl units 1 cap(s) orally 1 times a week for 28 Active omeprazole 20 mg 1 cap(s) orally once a day Active Mobic 15 mg 1 tab(s) orally once a day for 90 Active SOCIAL HISTORY Tobacco Use: Social History Observation Description Date Details (start date - stop date) Never Smoker NA - NA Sex Assigned At : Social History Observation Description Sex Assigned At Unknown Tobacco Use: Question Answer Notes Smoking Status nonsmoker PROBLEMS Problem Type ICD Code Onset Dates Problem Status W/U Status Risk SNOMED Code Notes Problem Low back pain (724.2) Active confirmed Low back pain (292862838) Problem Myalgia (729.1) Active confirmed Myalgi a (87483450) Problem Osteoarthrosis (715.09) Active confirmed Osteoarthrosis (208583207) Problem POLYARTHRITIS (716.59) Active confirmed Polyarthritis (082081192) Problem Positive anti-CCP test (R76.8) Active confirmed 899480876 Problem Myalgia (M79.1) Active confirmed 367242 01 Problem Primary generalized (osteo)arthritis (M15.0) Active confirmed 097578916 Problem continuous churn buttermaker current use of non-steroidal anti-inflammatori es (NSAID) (Z79.1) Active confirmed 555387032 Problem Former cigarette smoker (Z87.891) Active confirmed 219953982 PLAN OF TREATMENT Pending Test Test Name Order Date CPK Total,Serum 06/20/2014 Urinalysis, Routine w/reflex if positive (DO NOT USE) 06/20/2014 CBC With Differential/Platelet 4 Sed Rate - Westergren 06/20/2014 Rheumatoid Arthritis Factor 06/20/2014 C-Reactive Protein, Quant 06/20/2014 CCP IgG Antibodies 06/20/2014 ZACK w/reflex IFA USE FOR [facility] and [facility] 06/20/2014 Comp. Metabolic Panel (14) 06/20/2014 TSH Rfx on Abnormal to Free T4 4 X ray : Spines, cervical- outside order 06/20/2014 X-Ray L-Spine 06/20/2014 Insurance Providers Payer Name Payer Address Payer Phone Subscriber Number Group Number Insured Name Patient Relationship to Insured Coverage Start Date Coverage End Date MEDICARE ASSIGNMENT [address] [place] [address] [id number] Nalini Beaver Self - patient is the insured 1 [employer] [facility] [address] [place] [address] [phone] [id number] Nalini Beaver Self - patient is the insured 5 MEDICAL (GENERAL) HISTORY Medical History History ICD Code Hypothyroidism hypertension bruises easily sores that won't heal migraine headache tension headaches cataracts vision - flashes sinus problems breast lump anemia thyroid disease irregular heart beat rapid heartbeat swelling of ankles/feet hemorrhoids rectal bleeding depression measles chicken pox Surgical History Surgery Date(Month/Year) hysterectomy 1982 Heart ablation 2012
== END 2024-11-28 15:18 | disposition home or self-care (01) ==
LOC: ANHIMG 15:20
PROVIDERS: PCP Family Medicine; Visit Provider Obstetrics & Gynecology
DX: Z12.31 Encounter for screening mammogram for malignant neoplasm of breast (principal)
CPT/HCPCS: 77063; 77067

== ENCOUNTER 2024-12-19 12:46 | Outpatient (CLI) | payer MEDICARE, SELFPAY ==
--- OUTSIDE RECORDS SUMMARY | 2024-12-19 14:09 | XMS_ITS | Clinical Summary ---
Author Organization [facility] Address [address] [facility] [place] [address] Care Team Providers Care Grapple Operator Name Role Phone Neftali Ocampo MD Primary Care Provider [phone] Source Comments [facility],non-owned Affiliates and Associated Physician Practices is amultiple site organization consisting of ambulatory clinics and hospital sitesin [place], [place] and [place]. This disclosure is being madepursuant to the Care Everywhere program and may not contain all information available regarding this patient. Last updated 18.[facility] Allergies Active Allergy Reactions Criticality Noted Date Comments Codeine 08/28/2011 Active Problems Problem Noted Date Diagnosed Date Gastro-esophageal reflux disease without esophag itis 07/31/2017 Supraventricular tachycardia 07/31/2017 Hyperlipidemia 06/14/2015 Hypothyroidism 06/14/2015 Essential (primary) hypertension 06/16/2012 Myalgia 06/16/2012 Immunizations Immunization Administration Dates Next Due INFLUENZA VACCINE, HIGH-DOSE [...] drink = 0.6 oz pur e alcohol) Comments Unknown Sex and Gender Information Value Date Recorded Sex Assigned at Not on file Legal Sex Female 5:15 PM MANUFACTURING DESIGN ENGINEER Gender Identity Not on file Sexual Orientation Not on file Last Filed Vital Signs Vital Sign Reading Time Taken Comments Blood Pressure 136/78 07/31/2017 1:19 PM MANUFACTURING DESIGN ENGINEER Pulse 62 07/31/2017 1:19 PM MANUFACTURING DESIGN ENGINEER Temperature 36.8 C (98.2 F) 07/31/2017 1:19 PM MANUFACTURING DESIGN ENGINEER Respiratory Rate 12 07/31/2017 1:19 PM MANUFACTURING DESIGN ENGINEER Oxygen Saturation 96% 07/31/2017 1:19 PM MANUFACTURING DESIGN ENGINEER Inhaled Oxygen Concentration - - Weight 78.4 kg (172 lb 14.4 oz) 07/31/2017 1:19 PM MANUFACTURING DESIGN ENGINEER Height 165.1 cm (5' 5 ) 07/31/2017 1:19 PM MANUFACTURING DESIGN ENGINEER Body Mass Index 28.77 07/31/2017 1:19 PM MANUFACTURING DESIGN ENGINEER Plan of Treatment Health Maintenance Due Date Last Done Comments BONE DENSITY TESTING 1945 MEDICARE AWV 12 MONTHS 1945 HEPATITIS C SCREENING 06/13/1964 DTAP/TDAP/TD VACCINES (1 - Tdap) 1965 PNEUMOCOCCAL VACCINE 50+ (1 of 1 - PCV) 1996 ZOSTER VACCINE (1 of 2) 1996 Respiratory Syncytial Virus (RSV) Vaccine Pt: or over 60 yrs (1 - 1-dose 75+ series) 2021 COVID-19 VACCINE (1 - 2023-2 5 season) 2024 DEPRESSION SCREENING 08/31/2024 INFLUENZA VACCINE (Season Ended) 2025 07/15/20 13 HEPATITIS B VACCINE Aged Out No longe [...] on patient's age to complete this topic Insurance MEDICARE MEDICARE [facility] Care Teams Grapple Operator Relationship Specialty Start Date End Date Neftali Ocampo MD [address] [place] [address] PCP - General 08/28/11
--- OUTSIDE RECORDS SUMMARY | 2024-12-19 14:09 | XMS_ITS | Encounter Summary ---
Author Organization [facility] Address [address] [facility] [place] [address] Care Team Providers Care Window Maker Name Role Phone Neftali Ocampo MD Primary Care Provider [phone] Encounter Details Date Type Department Care Team (Late st Contact Info) Description 02/04/2023 Lab Requisition [facility] - DermPath Lab [address] [facility] [facility] [place] [phone] Vj Barkley MD [address] [place] [address] Social History Tobacco Use Types Packs/Day Years Used Date Smoking Tobacco: Former Cigarettes Q uit: 08/28/1976 Smokeless Tobacco: Never Alcohol Use Standard Drinks/Week Comments No 0 (1 standard drink = 0.6 oz pur e alcohol) Comments Unknown Sex and Gender Information Value Date Recorded Sex Assigned at Not on file Legal Sex Female 5:15 PM CYBER SECURITY CONSULTANT Gender Identity Not on file Sexual Orientation Not on file documented as of this encounter Plan of Treatment Not on file documented as of this encounter Procedures Procedure Name Priority Date/Time Associated Diagnosis Comments DERMATOPATHOLOGY Routine 02/03/2023 12:0 0 AM CDT documented in this encounter Results * DERMATOPATHOLOGY (02/03/2023 12:00 AM CDT) Case Report Dermatopathology Report Case: [id number] Authorizing Provider: Vj Barkley MD Collected: 02/03/2023 12:00 AM Ordering Location: [facility] DermPath Lab Received: 02/04/2023 01:40 PM Pathologist: [...] specimen consists of a shave removal measuring 17k53m0 mm. Jar 0. 3:54 PM CDT DERMATOPATHOLOGY [...] characteristic determined by the Dermatopathology Laboratory at [facility], directed by Dr. Cheo Mccarthy. These tests need not be, and therefore are not, approved by the [place] Food and Drug Administration. The tests are used for clinical purposes. Billing Codes Specimen Charges Stain Charges 42577 1 07021 1 3:54 PM CDT DERMATOPATHOLOGY LABORATORY Embedded Images 3:54 PM CDT DERMATOPATHOLOGY LABORATORY Pathology/Cytolog y TISSUE SPECIMEN FROM SKIN / Unknown 02/03/2023 02/04/2023 1:40 PM CDT us Vj Barkley MD LAB - PATHOLOGY/CYTOLOGY ORD ERABLES Final Result DERMATOPATHOLOGY LABORATORY [facility] - Department of Dermatology [address], [address] [phone] documented in this encounter Visit Diagnoses Not on filedocumented in this encounter Care Teams Window Maker Relationship Specialty Start Date End Date Neftali Ocampo MD [address] [place] [address] PCP - General 08/28/11 documented as of this encounter
--- OUTSIDE RECORDS SUMMARY | 2024-12-19 14:09 | XMS_ITS | Encounter Summary ---
Author Organization [facility] Address [address] [facility] [place] [address] Care Team Providers Care Sustainability Specialist Name Role Phone Neftali Ocampo MD Primary Care Provider [phone] Encounter Details Date Type Department Care Team (Late st Contact Info) Description 01/22/2022 Lab Requisition [facility] Care DermPath Lab [address] [facility] [place] [phone] Vj Barkley MD [address] [place] [address] Social History Tobacco Use Types Packs/Day Years Used Date Smoking Tobacco: Former Cigarettes Q uit: 08/28/1976 Smokeless Tobacco: Never Alcohol Use Standard Drinks/Week Comments No 0 (1 standard drink = 0.6 oz pur e alcohol) Comments Unknown Sex and Gender Information Value Date Recorded Sex Assigned at Not on file Legal Sex Female 5:15 PM PARK ACTIVITIES COORDINATOR Gender Identity Not on file Sexual Orientation Not on file documented as of this encounter Plan of Treatment Not on file documented as of this encounter Procedures Procedure Name Priority Date/Time Associated Diagnosis Comments DERMATOPATHOLOGY Routine 01/21/2022 12:0 0 AM CDT documented in this encounter Results * DERMATOPATHOLOGY (01/21/2022 12:00 AM CDT) Case Report Dermatopathology Report Case: [id number] Authorizing Provider: Vj Barkley MD Collected: 01/21/2022 12:00 AM Ordering Location: [facility] DermPath Lab Received: 01/22/2022 01:56 PM Pathologist: Bonifacio Mccarthy MD Specimen: Skin, left upper medial chest 2 2:57 PM CDT DERMATOPATHOLOGY LABORATORY Final Diagnosis Specimen A. SKIN, left upper medial chest: BASAL CELL CARCINOMA, NODULAR TYPE (C44.519) NOT PRESENT AT SAMPLED MARGIN 2:57 PM CDT DERMATOPATHOLOGY LABORATORY Clinical History R/O BCC. Please Check Margins. 2:57 PM CDT DERMATOPATHOLOGY LABORATORY Gross Description Specimen A: Received is one formalin filled container labeled with the patients name and designated left upper medial chest. The specimen consists of a shave removal measuring [id number] and it is inked. Jar 0. 2:57 [...] purposes. Billing Codes Specimen Charges Stain Charges 65629 1 2 2:57 PM CDT DERMATOPATHOLOGY LABORATORY Embedded Images 2 2:57 PM CDT DERMATOPATHOLOGY LABORATORY Pathology/Cytolog y TISSUE SPECIMEN FROM SKIN / Unknown 01/21/2022 01/22/2022 1:56 PM CDT Vj Barkley MD LAB - PATHOLOGY/CYTOLOGY ORD ERABLES Final Result DERMATOPATHOLOGY LABORATORY [facility] - Department of Dermatology [facility] Specialized [facility] [facility], [address]rd Floor [address] [phone] documented in this encounter Visit Diagnoses Not on filedocumented in this encounter Care Teams Sustainability Specialist Relationship Specialty Start Date End Date Neftali Ocampo MD [address] [place] [address] PCP - General 08/28/11 documented as of this encounter
--- OUTSIDE RECORDS SUMMARY | 2024-12-19 14:09 | XMS_ITS | Encounter Summary ---
Author Organization [facility] Address [address] [facility] [place] [address] Care Team Providers Care Data Processing Systems Project Planner Name Role Phone Neftali Ocampo MD Primary Care Provider [phone] Encounter Details Date Type Department Care Team (Late st Contact Info) Description 09/26/2020 Lab Requisition [facility] Care Derm[facility] Lab [address] [facility] [place] [phone] Vj Barkley MD [address] [place] [address] Social History Tobacco Use Types Packs/Day Years Used Date Smoking Tobacco: Former Cigarettes Q uit: 08/28/1976 Smokeless Tobacco: Never Alcohol Use Standard Drinks/Week Comments No 0 (1 standard drink = 0.6 oz pur e alcohol) Comments Unknown Sex and Gender Information Value Date Recorded Sex Assigned at Not on file Legal Sex Female 5:15 PM SPOOLER OPERATOR AUTOMATIC Gender Identity Not on file Sexual Orientation Not on file documented as of this encounter Plan of Treatment Not on file documented as of this encounter Procedures Procedure Name Priority Date/Time Associated Diagnosis Comments DERMATOPATHOLOGY Routine 09/25/2020 12:0 0 AM SPOOLER OPERATOR AUTOMATIC documented in this encounter Results * DERMATOPATHOLOGY (09/25/2020 12:00 AM SPOOLER OPERATOR AUTOMATIC) Case Report Dermatopathology Report Case: [id number] Authorizing Provider: Vj Barkley MD Collected: 09/25/2020 12:00 AM Ordering Location: [facility] DermPath Lab Received: 09/26/2020 12:34 PM Pathologist: Bonifacio Mccarthy MD Specimens: A) - Skin, left upper outer arm B) - Skin, right lateral upper back 2:20 PM [facility] DERMATOPATHOLOGY LABORATORY Final Diagnosis Specimen A. 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 SKIN, right lateral upper back: BASAL CELL CARCINOMA, NODULAR TYPE (C44.519) 2:20 PM [facility] DERMATOPATHOLOGY LABORATORY Clinical History A-B: R/O BCC. 2:20 PM [facility] DERMATOPATHOLOGY LABORATORY Gross Description Specimen A: Received is one formalin filled container labeled with the patient's name and designated left upper outer arm. The specimen consists of a curettage and desiccation biopsy measuring [id number]. Jar 0. Specimen B: Received is one formalin filled container labeled with the patient's name and designated right lateral upper back. The specimen consists of a curettage and desiccation biopsy measuring [id number]. Jar 0. 2:20 PM [facility] DERMATOPATHOLOGY LABORATORY Microscopic Description Specimen A. SKIN, left upper outer arm: Attached to the undersurface of the epidermis, there are small aggregates of basaloid cells with a high nuclear to cytoplasmic ratio and peripheral palisading. Specimen B. SKIN, right lateral upper back: Within the dermis there are aggregates of basaloid cells with a high nuclear to cytoplasmic ratio and peripheral palisading. 2:20 PM [facility] DERMATOPATHOLOGY LABORATORY Disclaimer An external and internal positive and negative controls are appropriate for the histochemical, immunohistochemical and immunofluorescence stain(s) in this case (if any), except where stated explicitly. The performance characteristics of the stain(s) cited in this report were developed and its performance characteristic determined by the Dermatopathology Laboratory at [facility], directed by Dr. Cheo Mccarthy. These tests need not be, and therefore are not, approved by the [place] Food and Drug Administration. The tests are used for clinical purposes. Billing Codes Specimen Charges Stain Charges 46345 97863 1 1 2:20 PM SPOOLER OPERATOR AUTOMATIC DERMATOPATHOLOGY LABORATORY Embedded Images 2:20 PM SPOOLER OPERATOR AUTOMATIC DERMATOPATHOLOGY LABORATORY Pathology/Cytology TISSUE SPECIMEN FROM SKIN / Unknown 09/25/2020 09/26/2020 12:34 PM SPOOLER OPERATOR AUTOMATIC Miscellaneous samples (specimen) TISSUE SPECIMEN FROM SKIN / Unknown 09/25/2020 09/26/2020 12:34 PM SPOOLER OPERATOR AUTOMATIC Vj Barkley MD LAB - PATHOLOGY/CYTOLOGY ORD ERABLES Final Result DERMATOPATHOLOGY LABORATORY [facility] - Department of Dermatology [facility] Specialized Medicine [address] [place] [address], [address] [phone] documented in this encounter Visit Diagnoses Not on filedocumented in this encounter Care Teams Data Processing Systems Project Planner Relationship Specialty Start Date End Date Neftali Ocampo MD [address] [place] [address] PCP - General 08/28/11 documented as of this encounter
--- OUTSIDE RECORDS SUMMARY | 2024-12-19 14:09 | XMS_ITS | Patient Health Record ---
Author Organization [facility] [employer] Address [address] [facility] Josue Jacobsen [facility] [address] [place], [place] [phone] Care Team Providers Care Wood Calker Name Role Phone ALFRED CRUZ Primary Care Provider Akua Ramirez Unavailable [phone] ALLERGIES Allergen (clinical drug ingredient) Drug/Non Drug [...] pain (724.2) Active confirmed Low back pain (484591165) Problem Myalgia (729.1) Active confirmed Myalgi a (77627186) Problem Osteoarthrosis (715.09) Active confirmed Osteoarthrosis (219531960) Problem POLYARTHRITIS (716.59) Active confirmed Polyarthritis (875959697) Problem Positive anti-CCP test (R76.8) Active confirmed 627873241 Problem Myalgia (M79.1) Active confirmed 858563 01 Problem Primary generalized (osteo)arthritis (M15.0) Active confirmed 841888713 Problem exterminator termite current use of non-steroidal anti-inflammatori es (NSAID) (Z79.1) Active confirmed 488263136 Problem Former cigarette smoker (Z87.891) Active confirmed 899598664 PLAN OF TREATMENT Pending Test Test Name [...] End Date MEDICARE ASSIGNMENT [address] [place] [address] [phone] [id number] Nalini Beaver Self - patient is the insured [address] [facility] [address] [place] [address] [phone] [id number] Nalini Beaver Self - patient is the [...]
--- OUTSIDE RECORDS SUMMARY | 2024-12-19 14:10 | XMS_ITS | Encounter Summary ---
Author Organization [facility] Address [address] [place] [address] Attn: [place] [address] Care Team Providers Care Keno Terminal Operator Name Role Phone Aarti Ayala MD Primary Care Provider Encounter Details Date Type Department Care Team (Late st Contact Info) Description 05/30/1992 Outpatient Historical Sunil Guzman MD [address] [place] [phone] Social History Tobacco Use Types Packs/Day Years Used Date Smoking Tobacco: Never Assessed Comments Unknown Sex and Gender Information Value Date Recorded Sex Assigned at Not on file Legal Sex Female 4:49 AM RISK CONTROL SPECIALIST Gender Identity Not on file Sexual Orientation Not on file documented as of this encounter Plan of Treatment Not on file documented as of this encounter Visit Diagnoses Not on filedocumented in this encounter Care Teams Keno Terminal Operator Relationship Specialty Start Date End Date Aarti Ayala MD [address] [place] [address] PCP - General 06/22/06 documented as of this encounter
--- OUTSIDE RECORDS SUMMARY | 2024-12-19 14:10 | XMS_ITS | Clinical Summary ---
Author Organization [facility] D Address [address] [place] [address] Care Team Providers Care Weapons Mechanic Name Role Phone Neftali Ocampo MD Primary [...] 08/14/2020 Assessment & Plan (08/14/2020 5:08 PM COMBAT SYSTEMS OFFICER): EKG shows incomplete right bundle branch block and nonspecific T-wave abnormalities. Because of this, a stress test without imaging would not be helpful. Jaw pain 08/14/2020 Assessment & Plan (08/14/2020 5:07 PM COMBAT SYSTEMS OFFICER): Nonexertional episodes of left jaw pain in [...] Hypothyroidism Assessment & Plan (08/14/2023 10:43 AM COMBAT SYSTEMS OFFICER): Patient on Levothyroxine for many years. Patient is clinically euthyroid TSH was normal at 3.4 on 07/12/23 Plan: Continue Levothyroxine 112 mcg/day The proper way of taking Levothyroxine reviewed with patient. She will follow up with new Entertainment Musician in 6 month Assessment & Plan (02/12/2023 [...] Hypercholesteremia Assessment & Plan (08/14/2020 5:07 PM COMBAT SYSTEMS OFFICER): Despite a previous history of not tolerating [...] diet Assessment & Plan (08/14/2020 5:07 PM COMBAT SYSTEMS OFFICER): Blood pressure is adequately controlled on current [...] Encounters Date Type Department Care Team Description 12/16/2024 11:00 AM CDT Therapy [facility] [place] [address] Jeni Fajardo, ARMOR OFFICER Trochanteric bursitis, right hip (Primary Dx); Spinal stenosis, lumbar region without neurogenic claudication; Trochanteric bursitis, left hip; Spinal stenosis of lumbar region, unspecified whether neurogenic claudication present 12/14/2024 2:30 PM CDT Therapy [facility] [place] [address] Jeni Fajardo, ARMOR OFFICER Trochanteric bursitis, right hip (Primary Dx); Spinal stenosis, lumbar region without neurogenic claudication; Trochanteric bursitis, left hip 12/06/2024 2:00 PM CDT Therapy [facility] [place] [address] Gonsalo Morgan, PT Trochanteric bursitis, right hip (Primary Dx); Spinal stenosis, lumbar region without neurogenic claudication; Trochanteric bursitis, left hip 12/02/2024 1:00 PM CDT Therapy [facility] [place] [address] Gonsalo Morgan, ABRAHAM Spinal stenosis, lumbar region without neurogenic claudication; Trochanteric bursitis, right hip; Trochanteric bursitis, left hip 12/02/2024 Plan of Care Documentation [facility] [place] [address] 10/03/2024 11:00 AM COMBAT SYSTEMS OFFICER Office Visit [facility] [address] [place] [address] Jose Nielsen MD Paroxysmal supraventricular [...] drink = 0.6 oz pur e alcohol) [facility] Utilities Answer Date Recorded In the past 12 months has th e electric, gas, oil, or water company threatened to shut off services in your [...] 07/13/2023 How often do you attend chur ch or yarsanism services? Never 07/13/2023 Do you belong to any clubs o r organizations such as yazidi groups, unions, fraternal or athletic groups, or [...] place to sleep or slept in a custodial (including now)? No 07/13/2023 Personal Safety Answer [...] on file Legal Sex Female 11:32 PM COMBAT SYSTEMS OFFICER Gender Identity Not on file Sexual Orientation Not on file Obstetrics History Last Filed Vital Signs Vital Sign Reading Time Taken Comments Blood Pressure 118/80 10/03/2024 11:10 AM COMBAT SYSTEMS OFFICER Pulse 71 10/03/2024 11:10 AM COMBAT SYSTEMS OFFICER Temperature 36.4 C (97.6 F) 07/13/2023 7:46 AM COMBAT SYSTEMS OFFICER Respiratory Rate 14 07/13/2023 7:46 AM COMBAT SYSTEMS OFFICER Oxygen Saturation 94% 10/03/2024 11:10 AM COMBAT SYSTEMS OFFICER Inhaled Oxygen Concentration - - Weight 83.1 kg (183 lb 1.6 oz) 10/03/2024 11:10 AM COMBAT SYSTEMS OFFICER Height 165.1 cm (5' 5 ) 10/03/2024 11:10 AM COMBAT SYSTEMS OFFICER Body Mass Index 30.47 10/03/2024 11:10 AM COMBAT SYSTEMS OFFICER Plan of Treatment Health Maintenance Due Date Last Done Comments Depression Screening 1945 Hepatitis C Screening 1945 Osteoporosis Screening-Bone Density Scan 1945 DTaP/Tdap/Td Vaccine (1 - Tdap) 1957 Hepatitis B Screening 1964 Zoster Vaccine (1 of 2) 1996 Well Visit 65+ 2011 Pneumococcal vaccine 65+ (2 of 2 - PPSV23) 09/26/2016 09/26/2015 Fall Risk Assessment 07/13/2024 07/13/2023 Influenza Vaccine (Season Ended) 2025 09/25/19 16, 07/15/2013 Insurance MEDICARE MEDICARE MEDICARE [place] MEDICARE SUPPLEMENT Advance Directives For more information, please contact: [phone] * Full Code (Latest Code Status on File) Date Activated Date Inactivated Comments 07/12/2023 5:18 PM 07/13/2023 2:43 PM Care Teams Weapons Mechanic Relationship Specialty Start Date End Date Neftali Ocampo MD [address] [place], [place] [id number] PCP - General 12/11/11
--- OUTSIDE RECORDS SUMMARY | 2024-12-19 14:10 | XMS_ITS | Encounter Summary ---
Author Organization [facility] Address [address] [place] [address] Attn: [place] [address] Care Team Providers Care Barrel Loader Name Role Phone Aarti Ayala MD Primary Care Provider Encounter Details Date Type Department Care Team (Late st Contact Info) Description 10/19/1993 Outpatient Historical Sunil Guzman MD [address] [place] [id number] Social History Tobacco Use Types Packs/Day Years Used Date Smoking Tobacco: Never Assessed Comments Unknown Sex and Gender Information Value Date Recorded Sex Assigned at Not on file Legal Sex Female 4:49 AM SALESPERSON MEN'S HATS Gender Identity Not on file Sexual Orientation Not on file documented as of this encounter Plan of Treatment Not on file documented as of this encounter Visit Diagnoses Not on filedocumented in this encounter Care Teams Barrel Loader Relationship Specialty Start Date End Date Aarti Ayala MD [address] [place] [address] PCP - General 06/22/06 documented as of this encounter
--- OUTSIDE RECORDS SUMMARY | 2024-12-19 14:10 | XMS_ITS | Encounter Summary ---
Author Organization [facility] Address [address] [facility] [place] [address] Care Team Providers Care Duct Installer Name Role Phone Neftali Ocampo MD Primary Care Provider [phone] Encounter Details Date Type Department Care Team (Late st Contact Info) Description 07/07/2019 Lab Requisition [facility] DermPath Lab [address] [facility] [place] [id number] Vj Barkley MD [address] [place] [address] Social History Tobacco Use Types Packs/Day Years Used Date Smoking Tobacco: Former Cigarettes Q uit: 08/28/1976 Smokeless Tobacco: Never Alcohol Use Standard Drinks/Week Comments No 0 (1 standard drink = 0.6 oz pur e alcohol) Comments Unknown Sex and Gender Information Value Date Recorded Sex Assigned at Not on file Legal Sex Female 5:15 PM NEGATIVE CHECKER Gender Identity Not on file Sexual Orientation Not on file documented as of this encounter Plan of Treatment Not on file documented as of this encounter Procedures Procedure Name Priority Date/Time Associated Diagnosis Comments DERMATOPATHOLOGY Routine 07/06/2019 12:0 0 AM NEGATIVE CHECKER documented in this encounter Results * DERMATOPATHOLOGY (07/06/2019 12:00 AM NEGATIVE CHECKER) Case Report Dermatopathology Report Case: [id number] Authorizing Provider: Vj Barkley MD Collected: 07/06/2019 12:00 AM Ordering Location: [facility] DermPath Lab Received: 07/07/2019 01:58 PM Pathologist: Tiffany Gibbons MD Specimens: A) - Skin, philtrum at edge of frances lip B) - Skin, right upper back 1:24 PM [facility] DERMATOPATHOLOGY LABORATORY Final Diagnosis Specimen A. 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 SKIN, right upper back: BASAL CELL CARCINOMA, SUPERFICIAL MULTIFOCAL (C44.519) 1:24 PM [facility] DERMATOPATHOLOGY LABORATORY Clinical History A: R/O SCC. B: R/O BCC. 1:24 PM [facility] DERMATOPATHOLOGY LABORATORY Gross Description Specimen A: Received is one formalin filled container labeled with the patient's name and designated philtrum at edge of frances lip. The specimen consists of a shave biopsy measuring [id number]. Jar 0. Specimen B: Received is one formalin filled container labeled with the patient's name and designated right upper back. The specimen consists of a curettage and desiccation biopsy measuring [id number]. Jar 0. 1:24 PM [facility] [...] determined by the Dermatopathology Laboratory at [facility], directed by Dr. Cheo Mccarthy. These tests need not be, and therefore are not, approved by the [place] Food and Drug Administration. The tests are used for clinical purposes. Billing Codes Specimen Charges Stain Charges 73874 46691 1 1 9 1:24 PM NEGATIVE CHECKER DERMATOPATHOLOGY LABORATORY Embedded Images 9 1:24 PM NEGATIVE CHECKER DERMATOPATHOLOGY LABORATORY Pathology/Cytology TISSUE SPECIMEN FROM SKIN / Unknown 07/06/2019 07/07/2019 1:58 PM NEGATIVE CHECKER Miscellaneous samples (specimen) TISSUE SPECIMEN FROM SKIN / Unknown 07/06/2019 07/07/2019 1:58 PM NEGATIVE CHECKER Vj Barkley MD LAB - PATHOLOGY/CYTOLOGY ORD ERABLES Final Result DERMATOPATHOLOGY LABORATORY [facility] - Department of Dermatology [address] [place] [address], 5th Floor Lab [address] [phone] documented in this encounter Visit Diagnoses Not on filedocumented in this encounter Care Teams Duct Installer Relationship Specialty Start Date End Date Neftali Ocampo MD [address] [place] [address] PCP - General 08/28/11 documented as of this encounter
--- OUTSIDE RECORDS SUMMARY | 2024-12-19 14:10 | XMS_ITS | Clinical Summary ---
Author Organization [facility] Address [address] [facility] Attn: Epic Prelude ADT [place] [address] Care Team Providers Care Department Administrator Name Role Phone Aarti Ayala MD Primary Care Provider [phone] Social History Tobacco Use Types Packs/Day Years Used Date Smoking Tobacco: Never Assessed Comments Unknown Sex and Gender Information Value Date Recorded Sex Assigned at Not on file Legal Sex Female 4:49 AM LOGGING CREW SUPERVISOR Gender Identity Not on file Sexual Orientation Not on file Plan of Treatment Health Maintenance Due Date Last Done Comments DTAP/TDAP/TD VACCINES (1 - Tdap) 1965 PNEUMOCOCCAL VACCINE 50+ YEARS (1 of 1 - PCV) 06/18/19 96 ZOSTER VACCINE (1 of 2) 1996 OSTEOPOROSIS SCREENING 2011 RSV VACCINE (60+ or ) (1 - 1-dose 75+ series) 2021 INFLUENZA VACCINE (#1) 2024 Care Teams Department Administrator Relationship Specialty Start Date End Date Aarti Ayala MD [address] [place] [phone] PCP - General 06/22/06
--- OUTSIDE RECORDS SUMMARY | 2024-12-19 14:10 | XMS_ITS | Referral Summary ---
Author Organization [facility] Address [address] [place] [address] Care Team Providers Care Albacore Fishing Boat Crewman Name Role Phone Neftali Ocampo MD Primary Care Provider Encounters Date Type Department Care Team Description 12/16/2024 11:00 AM CDT Therapy [facility] [place] [address] Jeni Fajardo, GERIATRICS PHYSICIAN Trochanteric bursitis, right hip (Primary Dx); Spinal stenosis, lumbar region without neurogenic claudication; Trochanteric bursitis, left hip; Spinal stenosis of lumbar region, unspecified whether neurogenic claudication present 12/14/2024 2:30 PM CDT Therapy [facility] [place] [place] [address] Jeni Fajardo, GERIATRICS PHYSICIAN Trochanteric bursitis, right hip (Primary Dx); Spinal stenosis, lumbar region without neurogenic claudication; Trochanteric bursitis, left hip 12/06/2024 2:00 PM CDT Therapy [facility] [place] [address] Gonsalo Morgan, PT Trochanteric bursitis, right hip (Primary Dx); Spinal stenosis, lumbar region without neurogenic claudication; Trochanteric bursitis, left hip 12/02/2024 Plan of Care Documentation [facility] Physical [facility] [address] [address] 12/02/2024 1:00 PM CDT Therapy [facility] Physical Therapy - [place] [address] Gonsalo Morgan, ABRAHAM Spinal stenosis, lumbar region without neurogenic claudication; Trochanteric bursitis, right hip; Trochanteric bursitis, left hip 10/03/2024 11:00 AM ACTING INSTRUCTOR Office Visit [facility] Cardiology [address] [place] [address] Jose Nielsen MD Paroxysmal supraventricular tachycardia (Primary [...] 08/14/2020 Assessment & Plan (08/14/2020 5:08 PM ACTING INSTRUCTOR): EKG shows incomplete right bundle branch block and nonspecific T-wave abnormalities. Because of this, a stress test without imaging would not be helpful. Jaw pain 08/14/2020 Assessment & Plan (08/14/2020 5:07 PM ACTING INSTRUCTOR): Nonexertional episodes of left jaw pain in [...] Hypothyroidism Assessment & Plan (08/14/2023 10:43 AM ACTING INSTRUCTOR): Patient on Levothyroxine for many years. Patient is clinically euthyroid TSH was normal at 3.4 on 07/12/23 Plan: Continue Levothyroxine 112 mcg/day The proper way of taking Levothyroxine reviewed with patient. She will follow up with new Guide Winder in 6 month Assessment & Plan (02/12/2023 [...] Hypercholesteremia Assessment & Plan (08/14/2020 5:07 PM ACTING INSTRUCTOR): Despite a previous history of not tolerating [...] diet Assessment & Plan (08/14/2020 5:07 PM ACTING INSTRUCTOR): Blood pressure is adequately controlled on current [...] drink = 0.6 oz pur e alcohol) [facility] [employer]ities Answer Date Recorded In the past 12 months has [employer], gas, oil, or water [employer] threatened to shut off services in your [...] often do you attend chur ch or roman catholic services? Never 07/13/2023 Do you belong to any clubs o r organizations such as denominational groups, unions, fraternal or athletic groups, or [...] place to sleep or slept in a fci (including now)? No 07/13/2023 Personal Safety Answer [...] on file Legal Sex Female 11:32 PM ACTING INSTRUCTOR Gender Identity Not on file Sexual Orientation Not on file Last Filed Vital Signs Vital Sign Reading Time Taken Comments Blood Pressure 118/80 10/03/2024 11:10 AM ACTING INSTRUCTOR Pulse 71 10/03/2024 11:10 AM ACTING INSTRUCTOR Temperature 36.4 C (97.6 F) 07/13/2023 7:46 AM ACTING INSTRUCTOR Respiratory Rate 14 07/13/2023 7:46 AM ACTING INSTRUCTOR Oxygen Saturation 94% 10/03/2024 11:10 AM ACTING INSTRUCTOR Inhaled Oxygen Concentration - - Weight 83.1 kg (183 lb 1.6 oz) 10/03/2024 11:10 AM ACTING INSTRUCTOR Height 165.1 cm (5' 5 ) 10/03/2024 11:10 AM ACTING INSTRUCTOR Body Mass Index 30.47 10/03/2024 11:10 AM ACTING INSTRUCTOR Plan of Treatment Not on file Insurance MEDICARE MEDICARE MEDICARE [place] MEDICARE SUPPLEMENT Advance Directives For more information, please contact: [phone] * Full Code (Latest Code Status on File) Date Activated Date Inactivated Comments 07/12/2023 5:18 PM 07/13/2023 2:43 PM Care Teams Albacore Fishing Boat Crewman Relationship Specialty Start Date End Date Neftali Ocampo MD [address] [facility] [address] [place] [address] PCP - General 12/11/11
--- OUTSIDE RECORDS SUMMARY | 2024-12-19 14:10 | XMS_ITS | Encounter Summary ---
Author Organization [facility] Address [address] [place] [address] Care Team Providers Care Clinical Trial Associate Name Role Phone Aarti Ayala MD Primary Care Provider [phone] Encounter Details Date Type Department Care Team (Late st Contact Info) Description 06/22/2006 Outpatient Historical [facility] Mario Penn MD NO ADDRESS ON FILE SENSRY HEARNG LOSS,BILAT (Primary Dx) Social History Tobacco Use Types Packs/Day Years Used Date Smoking Tobacco: Never Assessed Comments Unknown Sex and Gender Information Value Date Recorded Sex Assigned at Not on file Legal Sex Female 4:49 AM HOUSEKEEPER SUPERVISOR Gender Identity Not on file Sexual Orientation Not on file documented as of this encounter Plan of Treatment Not on file documented as of this encounter Visit Diagnoses Diagnosis Sensory hearing loss, bilateral- Primary documented in this encounter Care Teams Clinical Trial Associate Relationship Specialty Start Date End Date Aarti Ayala MD [address] [place] [address] PCP - General 06/22/06 documented as of this encounter
[2024-12-19 14:24] LABS: Free T4 Free Thyroxine 1.18 ng/dL (0.78-2.19)
== END 2024-12-19 12:47 | disposition home or self-care (01) ==
PROVIDERS: PCP Family Medicine; Visit Provider Family Medicine
DX: E03.9 Hypothyroidism, unspecified (principal)
CPT/HCPCS: 36415; 84439; 84443

== ENCOUNTER 2025-01-04 13:29 | Emergency (ER) | payer MEDICARE, SELFPAY ==
[2025-01-04] VITALS (7 sets, daily range): BP systolic 110–163; BP diastolic 57–85; PULSE 68–84; RESP 16–17; TEMP 36.5–36.6; O2SAT 94–98
--- NOTE | ~2025-01-04 | XR_ITS ---
XR chest 2V Ordering provider: Mis Adames PA-C History: 79 years Female with . near syncope . Comparison: None. FINDINGS: MEDIASTINUM: The cardiac silhouette is not enlarged. LUNGS: No infiltrates, effusions or pneumothorax. OTHER: No free air under the diaphragm. Degenerative the spine. IMPRESSION: No acute cardiopulmonary pathology. Reviewed, dictated and finalized at location A.
--- OUTSIDE RECORDS SUMMARY | 2025-01-04 13:40 | XMS_ITS | Encounter Summary ---
Author Organization [facility] Address [address] [facility] [place] [address] Care Team Providers Care Flight Radio Officer Name Role Phone Neftali Ocampo MD Primary Care Provider Encounter Details Date Type Department Care Team (Late st Contact Info) Description 07/07/2019 Lab Requisition [facility] DermPath Lab [address] [facility] [place] [phone] Vj Barkley MD [address] [place] [address] Social History Tobacco Use Types Packs/Day Years Used Date Smoking Tobacco: Former Cigarettes Q uit: 08/28/1976 Smokeless Tobacco: Never Alcohol Use Standard Drinks/Week Comments No 0 (1 standard drink = 0.6 oz pur e alcohol) Comments Unknown Sex and Gender Information Value Date Recorded Sex Assigned at Not on file Legal Sex Female 5:15 PM DOOR CLOSER MECHANIC Gender Identity Not on file Sexual Orientation Not on file documented as of this encounter Plan of Treatment Not on file documented as of this encounter Procedures Procedure Name Priority Date/Time Associated Diagnosis Comments DERMATOPATHOLOGY Routine 07/06/2019 12:0 0 AM DOOR CLOSER MECHANIC documented in this encounter Results * DERMATOPATHOLOGY (07/06/2019 12:00 AM DOOR CLOSER MECHANIC) Case Report Dermatopathology Report Case: [id number] Authorizing Provider: Vj Barkley MD Collected: 07/06/2019 12:00 AM Ordering Location: [facility] DermPath Lab Received: 07/07/2019 01:58 PM Pathologist: Tiffany Gibbons MD Specimens: A) - Skin, philtrum at edge of frances lip B) - Skin, right upper back 1:24 PM [facility] DERMATOPATHOLOGY LABORATORY Final Diagnosis Specimen A. 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 SKIN, right upper back: BASAL CELL CARCINOMA, SUPERFICIAL MULTIFOCAL (C44.519) 1:24 PM [facility] DERMATOPATHOLOGY LABORATORY Clinical History A: R/O SCC. B: R/O BCC. 1:24 PM [facility] DERMATOPATHOLOGY LABORATORY Gross Description Specimen A: Received is one formalin filled container labeled with the patient's name and designated philtrum at edge of frances lip. The specimen consists of a shave biopsy measuring [id number]. Jar 0. Specimen B: Received is one formalin filled container labeled with the patient's name and designated right upper back. The specimen consists of a curettage and desiccation biopsy measuring [id number]. Jar 0. 1:24 PM [facility] DERMATOPATHOLOGY LABORATORY Microscopic Description Specimen [...] cytoplasmic ratio and peripheral palisading. 1:24 PM [facility] DERMATOPATHOLOGY LABORATORY Disclaimer An external and internal positive and negative controls are appropriate for the histochemical, immunohistochemical and immunofluorescence stain(s) in this case (if any), except where stated explicitly. The performance characteristics of the stain(s) cited in this report were developed and its performance characteristic determined by the Dermatopathology Laboratory at [facility], directed by Dr. Cheo Mccarthy. These tests need not be, and therefore are not, approved by the [place] Food and Drug Administration. The tests are used for clinical purposes. Billing Codes Specimen Charges Stain Charges 64597 [id number] 1 1 9 1:24 PM DOOR CLOSER MECHANIC DERMATOPATHOLOGY LABORATORY Embedded Images 9 1:24 PM DOOR CLOSER MECHANIC DERMATOPATHOLOGY LABORATORY Pathology/Cytology TISSUE SPECIMEN FROM SKIN / Unknown 07/06/2019 07/07/2019 1:58 PM DOOR CLOSER MECHANIC Miscellaneous samples (specimen) TISSUE SPECIMEN FROM SKIN / Unknown 07/06/2019 07/07/2019 1:58 PM DOOR CLOSER MECHANIC Vj Barkley MD LAB - PATHOLOGY/CYTOLOGY ORD ERABLES Final Result DERMATOPATHOLOGY LABORATORY [facility] - Department of Dermatology [address] [place] [address], 5th Floor Lab [address] [phone] documented in this encounter Visit Diagnoses Not on filedocumented in this encounter Care Teams Flight Radio Officer Relationship Specialty Start Date End Date Neftali Ocampo MD [address] [place] [address] PCP - General 08/28/11 documented as of this encounter
--- OUTSIDE RECORDS SUMMARY | 2025-01-04 13:40 | XMS_ITS | Clinical Summary ---
Author Organization [facility] Address [address] [facility] [place] [address] Care Team Providers Care Handkerchief Presser Name Role Phone Neftali Ocampo MD Primary Care Provider [phone] Source Comments [facility],non-owned Affiliates and Associated Physician Practices is amultiple site organization consisting of ambulatory clinics and hospital sitesin [place], [place], [place] and [place]. This disclosure is being madepursuant to the Care Everywhere program and may not contain all information available regarding this patient. Last updated 18.[facility] Allergies Active Allergy Reactions Criticality Noted Date [...] on file Legal Sex Female 5:15 PM TUBE TEST TECHNICIAN Gender Identity Not on file Sexual Orientation Not on file Last Filed Vital Signs Vital Sign Reading Time Taken Comments Blood Pressure 136/78 07/31/2017 1:19 PM TUBE TEST TECHNICIAN Pulse 62 07/31/2017 1:19 PM TUBE TEST TECHNICIAN Temperature 36.8 C (98.2 F) 07/31/2017 1:19 PM TUBE TEST TECHNICIAN Respiratory Rate 12 07/31/2017 1:19 PM TUBE TEST TECHNICIAN Oxygen Saturation 96% 07/31/2017 1:19 PM TUBE TEST TECHNICIAN Inhaled Oxygen Concentration - - Weight 78.4 kg (172 lb 14.4 oz) 07/31/2017 1:19 PM TUBE TEST TECHNICIAN Height 165.1 cm (5' 5 ) 07/31/2017 1:19 PM TUBE TEST TECHNICIAN Body Mass Index 28.77 07/31/2017 1:19 PM TUBE TEST TECHNICIAN Plan of Treatment Health Maintenance Due Date [...] to complete this topic Insurance MEDICARE MEDICARE [facility] Care Teams Handkerchief Presser Relationship Specialty Start Date End Date Neftali Ocampo MD [address] [place] [address] PCP - General 08/28/11
--- OUTSIDE RECORDS SUMMARY | 2025-01-04 13:40 | XMS_ITS | Referral Summary ---
Author Organization [facility] Address [address] [place] [address] Care Team Providers Care Pigs Feet Finisher Name Role Phone Neftali Ocampo MD Primary Care Provider Encounters Date Type Department Care Team Description 01/02/2025 2:15 PM CDT Therapy [facility] Physical [facility] [place] [address] Jeni Fajardo, CASINO SURVEILLANCE OFFICER Trochanteric bursitis, right hip (Primary Dx); Spinal stenosis, lumbar region without neurogenic claudication; Trochanteric bursitis, left hip; Spinal stenosis of lumbar region, unspecified whether neurogenic claudication present 12/30/2024 10:15 AM CD[facility] [place] [address] Jeni Fajardo, CASINO SURVEILLANCE OFFICER Trochanteric bursitis, right hip (Primary Dx); Spinal stenosis, lumbar region without neurogenic claudication; Trochanteric bursitis, left hip; Spinal stenosis of lumbar region, unspecified whether neurogenic claudication present 12/28/2024 1:00 PM CD[facility] [place] [address] Jeni Fajardo, CASINO SURVEILLANCE OFFICER Trochanteric bursitis, right hip (Primary Dx); Spinal stenosis, lumbar region without neurogenic claudication; Trochanteric bursitis, left hip; Spinal stenosis of lumbar region, unspecified whether neurogenic claudication present 12/21/2024 1:00 PM CDT Therapy [facility] [place] [address] Jein Fajardo, CASINO SURVEILLANCE OFFICER Trochanteric bursitis, right hip (Primary Dx); Spinal stenosis, lumbar region without neurogenic claudication; Trochanteric bursitis, left hip; Spinal stenosis of lumbar region, unspecified whether neurogenic claudication present 12/16/2024 11:00 AM CDT Therapy [facility] [place] [address] Jeni Fajardo, CASINO SURVEILLANCE OFFICER Trochanteric bursitis, right hip (Primary Dx); Spinal stenosis, lumbar region without neurogenic claudication; Trochanteric bursitis, left hip; Spinal stenosis of lumbar region, unspecified whether neurogenic claudication present 12/14/2024 2:30 PM CDT Therapy [facility] [place] [address] Jeni Fajardo, CASINO SURVEILLANCE OFFICER Trochanteric bursitis, right hip (Primary Dx); Spinal stenosis, lumbar region without neurogenic claudication; Trochanteric bursitis, left hip 12/06/2024 2:00 PM CDT Therapy [facility] [place] [address] Gonsalo Morgan, PT Trochanteric bursitis, right hip (Primary Dx); Spinal stenosis, lumbar region without neurogenic claudication; Trochanteric bursitis, left hip 12/02/2024 Plan of Care Documentation [facility] [place] [address] 12/02/2024 1:00 PM CDT Therapy [facility] [place] [address] Gonsalo Morgan, PT Spinal stenosis, lumbar region without neurogenic claudication; Trochanteric bursitis, right hip; Trochanteric bursitis, left hip from Last 3 Months Allergies Active Allergy [...] 08/14/2020 Assessment & Plan (08/14/2020 5:08 PM CARROT GRADER INSPECTOR): EKG shows incomplete right bundle branch block and nonspecific T-wave abnormalities. Because of this, a stress test without imaging would not be helpful. Jaw pain 08/14/2020 Assessment & Plan (08/14/2020 5:07 PM CARROT GRADER INSPECTOR): Nonexertional episodes of left jaw pain in [...] Hypothyroidism Assessment & Plan (08/14/2023 10:43 AM CARROT GRADER INSPECTOR): Patient on Levothyroxine for many years. Patient is clinically euthyroid TSH was normal at 3.4 on 07/12/23 Plan: Continue Levothyroxine 112 mcg/day The proper way of taking Levothyroxine reviewed with patient. She will follow up with new Clinical Dietitian in 6 month Assessment & Plan (02/12/2023 [...] Hypercholesteremia Assessment & Plan (08/14/2020 5:07 PM CARROT GRADER INSPECTOR): Despite a previous history of not tolerating [...] diet Assessment & Plan (08/14/2020 5:07 PM CARROT GRADER INSPECTOR): Blood pressure is adequately controlled on current [...] drink = 0.6 oz pur e alcohol) [facility] Utilities Answer Date Recorded In the past 12 months has e electric, gas, oil, or water company [...] often do you attend chur ch or synagogue services? Never 07/13/2023 Do you belong to any clubs o r organizations such as buddhist groups, unions, fraternal or athletic groups, or [...] place to sleep or slept in a intermediate (including now)? No 07/13/2023 Personal Safety Answer [...] on file Legal Sex Female 11:32 PM CARROT GRADER INSPECTOR Gender Identity Not on file Sexual Orientation Not on file Last Filed Vital Signs Vital Sign Reading Time Taken Comments Blood Pressure 118/80 10/03/2024 11:10 AM CARROT GRADER INSPECTOR Pulse 71 10/03/2024 11:10 AM CARROT GRADER INSPECTOR Temperature 36.4 C (97.6 F) 07/13/2023 7:46 AM CARROT GRADER INSPECTOR Respiratory Rate 14 07/13/2023 7:46 AM CARROT GRADER INSPECTOR Oxygen Saturation 94% 10/03/2024 11:10 AM CARROT GRADER INSPECTOR Inhaled Oxygen Concentration - - Weight 83.1 kg (183 lb 1.6 oz) 10/03/2024 11:10 AM CARROT GRADER INSPECTOR Height 165.1 cm (5' 5 ) 10/03/2024 11:10 AM CARROT GRADER INSPECTOR Body Mass Index 30.47 10/03/2024 11:10 AM CARROT GRADER INSPECTOR Plan of Treatment Not on file Insurance MEDICARE MEDICARE MEDICARE [place] MEDICARE SUPPLEMENT Advance Directives For more information, please contact: [phone] * Full Code (Latest Code Status on File) Date Activated Date Inactivated Comments 07/12/2023 5:18 PM 07/13/2023 2:43 PM Care Teams Pigs Feet Finisher Relationship Specialty Start Date End Date Neftali Ocampo MD [address] [facility] [address] [place] [address] PCP - General 12/11/11
--- OUTSIDE RECORDS SUMMARY | 2025-01-04 13:40 | XMS_ITS | Encounter Summary ---
Author Organization [facility] Address [address] [place] [address] Attn: [place] [address] Care Team Providers Care Director Of Restaurant Operations Name Role Phone Aarti Ayala MD Primary Care Provider [phone] Encounter Details Date Type Department Care Team (Late st Contact Info) Description 10/19/1993 Outpatient Historical Sunil Guzman MD [address] [place] [id number] Social History Tobacco Use Types Packs/Day Years Used Date Smoking Tobacco: Never Assessed Comments Unknown Sex and Gender Information Value Date Recorded Sex Assigned at Not on file Legal Sex Female 4:49 AM BACKHAUL DRIVER Gender Identity Not on file Sexual Orientation Not on file documented as of this encounter Plan of Treatment Not on file documented as of this encounter Visit Diagnoses Not on filedocumented in this encounter Care Teams Director Of Restaurant Operations Relationship Specialty Start Date End Date Aarti Ayala MD [address] [place] [address] PCP - General 06/22/06 documented as of this encounter
--- OUTSIDE RECORDS SUMMARY | 2025-01-04 13:40 | XMS_ITS | Clinical Summary ---
Author Organization [facility] Address [address] [facility] Attn: Epic Prelude ADT [place] [address] Care Team Providers Care Novelty Candy Maker Name Role Phone Aarti Ayala MD Primary Care Provider [phone] Social History Tobacco Use Types Packs/Day Years Used Date Smoking Tobacco: Never Assessed Comments Unknown Sex and Gender Information Value Date Recorded Sex Assigned at Not on file Legal Sex Female 4:49 AM VAN DRIVER HELPER Gender Identity Not on file Sexual Orientation Not on file Plan of Treatment Health Maintenance Due Date Last Done Comments DTAP/TDAP/TD VACCINES (1 - Tdap) 1965 PNEUMOCOCCAL VACCINE 50+ YEARS (1 of 1 - PCV) 06/18/19 96 ZOSTER VACCINE (1 of 2) 1996 OSTEOPOROSIS SCREENING 2011 RSV VACCINE (60+ or ) (1 - 1-dose 75+ series) 2021 INFLUENZA VACCINE (#1) 2024 Care Teams Novelty Candy Maker Relationship Specialty Start Date End Date Aarti Ayala MD [address] [place] [address] PCP - General 06/22/06
--- OUTSIDE RECORDS SUMMARY | 2025-01-04 13:40 | XMS_ITS | Encounter Summary ---
Author Organization [facility] Address [address] [facility] [place] [address] Care Team Providers Care Teaching Supervisor Name Role Phone Neftali Ocampo MD Primary Care Provider [phone] Encounter Details Date Type Department Care Team (Late st Contact Info) Description 01/22/[address] [facility] Care DermPath Lab [address] [facility] [place] [phone] Vj Barkley MD [address] [place] [address] Social History Tobacco Use Types Packs/Day Years Used Date Smoking Tobacco: Former Cigarettes Q uit: 08/28/1976 Smokeless Tobacco: Never Alcohol Use Standard Drinks/Week Comments No 0 (1 standard drink = 0.6 oz pur e alcohol) Comments Unknown Sex and Gender Information Value Date Recorded Sex Assigned at Not on file Legal Sex Female 5:15 PM PRODUCT DEVELOPMENT COORDINATOR Gender Identity Not on file Sexual Orientation Not on file documented as of this encounter Plan of Treatment Not on file documented as of this encounter Procedures Procedure Name Priority Date/Time Associated Diagnosis Comments DERMATOPATHOLOGY Routine 01/21/2022 12:0 0 AM CDT documented in this encounter Results * DERMATOPATHOLOGY (01/21/2022 12:00 AM CDT) Case Report Dermatopathology Report Case: [id number] Authorizing Provider: Vj Barkley MD Collected: 01/21/2022 12:00 AM Ordering Location: [facility] D[facility] Lab Received: 01/22/2022 01:56 PM Pathologist: [...] specimen consists of a shave removal measuring [id number] and it is inked. Jar 0. 2:57 [...] characteristic determined by the Dermatopathology Laboratory at [facility], directed by Dr. Cheo Mccarthy. These tests need not be, and therefore are not, approved by the [place] Food and Drug Administration. The tests are used for clinical purposes. Billing Codes Specimen Charges Stain Charges 60780 1 2 2:57 PM CDT DERMATOPATHOLOGY LABORATORY Embedded Images 2 2:57 PM CDT DERMATOPATHOLOGY LABORATORY Pathology/Cytolog y TISSUE SPECIMEN FROM SKIN / Unknown 01/21/2022 01/22/2022 1:56 PM CDT Vj Barkley MD LAB - PATHOLOGY/CYTOLOGY ORD ERABLES Final Result DERMATOPATHOLOGY LABORATORY [facility] - Department of Dermatology [facility] [facility], [address]rd Floor [address] [phone] documented in this encounter Visit Diagnoses Not on filedocumented in this encounter Care Teams Teaching Supervisor Relationship Specialty Start Date End Date Neftali Ocampo MD [address] [place] [address] PCP - General 08/28/11 documented as of this encounter
--- OUTSIDE RECORDS SUMMARY | 2025-01-04 13:40 | XMS_ITS | Encounter Summary ---
Author Organization [facility] Address [address] [place] [address] Attn: [place] [address] Care Team Providers Care Plastic Duplicator Name Role Phone Aarti Ayala MD Primary Care Provider Encounter Details Date Type Department Care Team (Late st Contact Info) Description 05/30/1992 Outpatient Historical Sunil Guzman MD [address] [place] [phone] Social History Tobacco Use Types Packs/Day Years Used Date Smoking Tobacco: Never Assessed Comments Unknown Sex and Gender Information Value Date Recorded Sex Assigned at Not on file Legal Sex Female 4:49 AM RIVETER Gender Identity Not on file Sexual Orientation Not on file documented as of this encounter Plan of Treatment Not on file documented as of this encounter Visit Diagnoses Not on filedocumented in this encounter Care Teams Plastic Duplicator Relationship Specialty Start Date End Date Aarti Ayala MD [address] [place] [address] PCP - General 06/22/06 documented as of this encounter
--- OUTSIDE RECORDS SUMMARY | 2025-01-04 13:40 | XMS_ITS | Encounter Summary ---
Author Organization [facility] Address [address] [place] [address] Care Team Providers Care Relief Map Modeler Name Role Phone Aarti Ayala MD Primary Care Provider [phone] Encounter Details Date Type Department Care Team (Late st Contact Info) Description 06/22/2006 Outpatient Historical [facility] Mario Penn MD NO ADDRESS ON FILE SENSRY HEARNG LOSS,BILAT (Primary Dx) Social History Tobacco Use Types Packs/Day Years Used Date Smoking Tobacco: Never Assessed Comments Unknown Sex and Gender Information Value Date Recorded Sex Assigned at Not on file Legal Sex Female 4:49 AM SAS PROGRAMMER REMOTE Gender Identity Not on file Sexual Orientation Not on file documented as of this encounter Plan of Treatment Not on file documented as of this encounter Visit Diagnoses Diagnosis Sensory hearing loss, bilateral- Primary documented in this encounter Care Teams Relief Map Modeler Relationship Specialty Start Date End Date Aarti Ayala MD [address] [place] [address] PCP - General 06/22/06 documented as of this encounter
--- OUTSIDE RECORDS SUMMARY | 2025-01-04 13:40 | XMS_ITS | Encounter Summary ---
Author Organization [facility] Address [address] [facility] [place] [address] Care Team Providers Care Manager Process Excellence Name Role Phone Neftali Ocampo MD Primary Care Provider [phone] Encounter Details Date Type Department Care Team (Late st Contact Info) Description 02/04/2023 Lab Requisition [facility] - DermPath Lab [address] [facility] [place] [phone] Vj Barkley MD [address] [place] [address] Social History Tobacco Use Types Packs/Day Years Used Date Smoking Tobacco: Former Cigarettes Q uit: 08/28/1976 Smokeless Tobacco: Never Alcohol Use Standard Drinks/Week Comments No 0 (1 standard drink = 0.6 oz pur e alcohol) Comments Unknown Sex and Gender Information Value Date Recorded Sex Assigned at Not on file Legal Sex Female 5:15 PM INVESTOR RELATIONS ANALYST Gender Identity Not on file Sexual Orientation Not on file documented as of this encounter Plan of Treatment Not on file documented as of this encounter Procedures Procedure Name Priority Date/Time Associated Diagnosis Comments DERMATOPATHOLOGY Routine 02/03/2023 12:0 0 AM CDT documented in this encounter Results * DERMATOPATHOLOGY (02/03/2023 12:00 AM CDT) Case Report Dermatopathology Report Case: [id number] Authorizing Provider: Vj Barkley MD Collected: 02/03/2023 12:00 AM Ordering Location: [facility] DermPath Lab Received: 02/04/2023 01:40 PM Pathologist: [...] specimen consists of a shave removal measuring [id number] mm. Jar 0. 3:54 PM CDT DERMATOPATHOLOGY [...] characteristic determined by the Dermatopathology Laboratory at [facility], directed by Dr. Cheo Mccarthy. These tests need not be, and therefore are not, approved by the [place] Food and Drug Administration. The tests are used for clinical purposes. Billing Codes Specimen Charges Stain Charges 36785 1 11028 1 3:54 PM CDT DERMATOPATHOLOGY LABORATORY Embedded Images 3:54 PM CDT DERMATOPATHOLOGY LABORATORY Pathology/Cytolog y TISSUE SPECIMEN FROM SKIN / Unknown 02/03/2023 02/04/2023 1:40 PM CDT us Vj Barkley MD LAB - PATHOLOGY/CYTOLOGY ORD ERABLES Final Result DERMATOPATHOLOGY LABORATORY [facility] - Department of Dermatology [address], [address] [phone] documented in this encounter Visit Diagnoses Not on filedocumented in this encounter Care Teams Manager Process Excellence Relationship Specialty Start Date End Date Neftali Ocampo MD [address] [place] [address] PCP - General 08/28/11 documented as of this encounter
--- OUTSIDE RECORDS SUMMARY | 2025-01-04 13:40 | XMS_ITS | Encounter Summary ---
Author Organization [facility] Address [address] [facility] [place] [address] Care Team Providers Care Internet Security Specialist Name Role Phone Neftali Ocampo MD Primary Care Provider [phone] Encounter Details Date Type Department Care Team (Late st Contact Info) Description 09/26/2020 Lab Requisition [facility] Care DermPath Lab [address] [facility] [place] [phone] Vj Barkley MD [address] [place] [address] Social History Tobacco Use Types Packs/Day Years Used Date Smoking Tobacco: Former Cigarettes Q uit: 08/28/1976 Smokeless Tobacco: Never Alcohol Use Standard Drinks/Week Comments No 0 (1 standard drink = 0.6 oz pur e alcohol) Comments Unknown Sex and Gender Information Value Date Recorded Sex Assigned at Not on file Legal Sex Female 5:15 PM CORPORATE LEGAL INTERN Gender Identity Not on file Sexual Orientation Not on file documented as of this encounter Plan of Treatment Not on file documented as of this encounter Procedures Procedure Name Priority Date/Time Associated Diagnosis Comments DERMATOPATHOLOGY Routine 09/25/2020 12:0 0 AM CORPORATE LEGAL INTERN documented in this encounter Results * DERMATOPATHOLOGY (09/25/2020 12:00 AM CORPORATE LEGAL INTERN) Case Report Dermatopathology Report Case: [id number] Authorizing Provider: Vj Barkley MD Collected: 09/25/2020 12:00 AM Ordering Location: [facility] Received: 09/26/2020 12:34 PM Pathologist: Bonifacio Mccarthy MD Specimens: A) - Skin, left upper outer arm B) - Skin, right lateral upper back 2:20 PM [facility] DERMATOPATHOLOGY LABORATORY Final Diagnosis Specimen A. 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 SKIN, right lateral upper back: BASAL CELL CARCINOMA, NODULAR TYPE (C44.519) 2:20 PM [facility] DERMATOPATHOLOGY LABORATORY Clinical History A-B: R/O BCC. 2:20 PM [facility] DERMATOPATHOLOGY LABORATORY Gross Description Specimen A: Received is one formalin filled container labeled with the patient's name and designated left upper outer arm. The specimen consists of a curettage and desiccation biopsy measuring [id number]. Jar 0. Specimen B: Received is one formalin filled container labeled with the patient's name and designated right lateral upper back. The specimen consists of a curettage and desiccation biopsy measuring [id number]. Jar 0. 2:20 PM [facility] DERMATOPATHOLOGY LABORATORY Microscopic Description Specimen [...] cytoplasmic ratio and peripheral palisading. 2:20 PM [facility] DERMATOPATHOLOGY LABORATORY Disclaimer An external and internal positive and negative controls are appropriate for the histochemical, immunohistochemical and immunofluorescence stain(s) in this case (if any), except where stated explicitly. The performance characteristics of the stain(s) cited in this report were developed and its performance characteristic determined by the Dermatopathology Laboratory at [facility], directed by Dr. Cheo Mccarthy. These tests need not be, and therefore are not, approved by the [place] Food and Drug Administration. The tests are used for clinical purposes. Billing Codes Specimen Charges Stain Charges 42145 36725 1 1 2:20 PM CORPORATE LEGAL INTERN DERMATOPATHOLOGY LABORATORY Embedded Images 2:20 PM CORPORATE LEGAL INTERN DERMATOPATHOLOGY LABORATORY Pathology/Cytology TISSUE SPECIMEN FROM SKIN / Unknown 09/25/2020 09/26/2020 12:34 PM CORPORATE LEGAL INTERN Miscellaneous samples (specimen) TISSUE SPECIMEN FROM SKIN / Unknown 09/25/2020 09/26/2020 12:34 PM CORPORATE LEGAL INTERN Vj Barkley MD LAB - PATHOLOGY/CYTOLOGY ORD ERABLES Final Result DERMATOPATHOLOGY LABORATORY [facility] - Department of Dermatology [facility] [address] [place] [address], [address] [phone] documented in this encounter Visit Diagnoses Not on filedocumented in this encounter Care Teams Internet Security Specialist Relationship Specialty Start Date End Date Neftali Ocampo MD [address] [place] [address] PCP - General 08/28/11 documented as of this encounter
--- OUTSIDE RECORDS SUMMARY | 2025-01-04 13:40 | XMS_ITS | Clinical Summary ---
Author Organization [facility] D Address [address] [place] [address] Care Team Providers Care Tongue And Quarter Stitcher Name Role Phone Neftali Ocampo MD Primary [...] 08/14/2020 Assessment & Plan (08/14/2020 5:08 PM TOUCHER UP): EKG shows incomplete right bundle branch block and nonspecific T-wave abnormalities. Because of this, a stress test without imaging would not be helpful. Jaw pain 08/14/2020 Assessment & Plan (08/14/2020 5:07 PM TOUCHER UP): Nonexertional episodes of left jaw pain in [...] Hypothyroidism Assessment & Plan (08/14/2023 10:43 AM TOUCHER UP): Patient on Levothyroxine for many years. Patient is clinically euthyroid TSH was normal at 3.4 on 07/12/23 Plan: Continue Levothyroxine 112 mcg/day The proper way of taking Levothyroxine reviewed with patient. She will follow up with new Training Development Manager in 6 month Assessment & Plan (02/12/2023 [...] Hypercholesteremia Assessment & Plan (08/14/2020 5:07 PM TOUCHER UP): Despite a previous history of not tolerating [...] diet Assessment & Plan (08/14/2020 5:07 PM TOUCHER UP): Blood pressure is adequately controlled on current [...] Team Description 01/02/2025 2:15 PM CDT Therapy [facility] Physical Therapy [facility] [place] [address] Jeni Fajardo, AUTOMATIC LATHE TENDER Trochanteric bursitis, right hip (Primary Dx); Spinal stenosis, lumbar region without neurogenic claudication; Trochanteric bursitis, left hip; Spinal stenosis of lumbar region, unspecified whether neurogenic claudication present 12/30/2024 10:15 AM CDT Therapy [facility] [address] Jeni Fajardo, AUTOMATIC LATHE TENDER Trochanteric bursitis, right hip (Primary Dx); Spinal stenosis, lumbar region without neurogenic claudication; Trochanteric bursitis, left hip; Spinal stenosis of lumbar region, unspecified whether neurogenic claudication present 12/28/2024 1:00 PM CDT Therapy [facility] Physical Therapy [facility] [place] [address] [address] Jeni Fajardo, AUTOMATIC LATHE TENDER Trochanteric bursitis, right hip (Primary Dx); Spinal stenosis, lumbar region without neurogenic claudication; Trochanteric bursitis, left hip; Spinal stenosis of lumbar region, unspecified whether neurogenic claudication present 12/21/2024 1:00 PM CDT Therapy [facility] Physical Therapy [facility] [place] [address] Jeni Fajardo, AUTOMATIC LATHE TENDER Trochanteric bursitis, right hip (Primary Dx); Spinal stenosis, lumbar region without neurogenic claudication; Trochanteric bursitis, left hip; Spinal stenosis of lumbar region, unspecified whether neurogenic claudication present 12/16/2024 11:00 AM CDT Therapy [facility] [place] [address] Jeni Fajardo, AUTOMATIC LATHE TENDER Trochanteric bursitis, right hip (Primary Dx); Spinal stenosis, lumbar region without neurogenic claudication; Trochanteric bursitis, left hip; Spinal stenosis of lumbar region, unspecified whether neurogenic claudication present 12/14/2024 2:30 PM CDT Therapy [facility] Physical [facility] [place] [address] Jeni Fajardo, AUTOMATIC LATHE TENDER Trochanteric bursitis, right hip (Primary Dx); Spinal stenosis, lumbar region without neurogenic claudication; Trochanteric bursitis, left hip 12/06/2024 2:00 PM CDT Therapy [facility] Physical [facility] [place] [address] Gonsalo Morgan, PT Trochanteric bursitis, right hip (Primary Dx); Spinal stenosis, lumbar region without neurogenic claudication; Trochanteric bursitis, left hip 12/02/2024 1:00 PM CDT Therapy [facility] [place] [address] Gonsalo Morgan, PT Spinal stenosis, lumbar region without neurogenic claudication; Trochanteric bursitis, right hip; Trochanteric bursitis, left hip 12/02/2024 Plan of Care Documentation [facility] Physical [facility] [place] [address] from Last 3 Months Surgical History Surgery Date Site/Laterality Comments WRIST SURGERY 2013 right wrist surgery HYSTERECTOMY 1983 Hysterectomy ABLATION Medical History Medical History Date [...] drink = 0.6 oz pur e alcohol) [facility] Utilities Answer Date Recorded In the past 12 months has e [employer], gas, oil, or water Monitor [employer] threatened to shut off services in your [...] often do you attend chur ch or congregational services? Never 07/13/2023 Do you belong to any clubs o r organizations such as shinto groups, unions, fraternal or athletic groups, or [...] place to sleep or slept in a long-term (including now)? No 07/13/2023 Personal Safety Answer [...] on file Legal Sex Female 11:32 PM TOUCHER UP Gender Identity Not on file Sexual Orientation Not on file Obstetrics History Last Filed Vital Signs Vital Sign Reading Time Taken Comments Blood Pressure 118/80 10/03/2024 11:10 AM TOUCHER UP Pulse 71 10/03/2024 11:10 AM TOUCHER UP Temperature 36.4 C (97.6 F) 07/13/2023 7:46 AM TOUCHER UP Respiratory Rate 14 07/13/2023 7:46 AM TOUCHER UP Oxygen Saturation 94% 10/03/2024 11:10 AM TOUCHER UP Inhaled Oxygen Concentration - - Weight 83.1 kg (183 lb 1.6 oz) 10/03/2024 11:10 AM TOUCHER UP Height 165.1 cm (5' 5 ) 10/03/2024 11:10 AM TOUCHER UP Body Mass Index 30.47 10/03/2024 11:10 AM TOUCHER UP Plan of Treatment Health Maintenance Due Date [...] 09/25/19 16, 07/15/2013 Insurance MEDICARE MEDICARE MEDICARE [place] SUPPLEMENT Advance Directives For more information, please contact: [phone] * Full Code (Latest Code Status on File) Date Activated Date Inactivated Comments 07/12/2023 5:18 PM 07/13/2023 2:43 PM Care Teams Tongue And Quarter Stitcher Relationship Specialty Start Date End Date Neftali Ocampo MD [address] [facility] [address] [place] [address] PCP - General 12/11/11
--- NOTE | 2025-01-04 14:14 | ECG_ITS ---
Test Date: 2025-01-04 14:23:34 Measurements Intervals [place] Rate: 75 P: 39 UT: 192 QRS: 16 QRSD: 114 T: 81 QT: 417 QTc: 466 Interpretive Statements SINUS RHYTHM WITH SINUS ARRHYTHMIA INCOMPLETE RIGHT BUNDLE BRANCH BLOCK [90+ ms QRS DURATION, TERMINAL R IN V1/V2, 40+ ms S IN I/aVL/V4/V5/V6] POSSIBLE LEFT VENTRICULAR HYPERTROPHY [VOLTAGE CRITERIA PLUS LAE OR QRS WIDENING] MODERATE T-WAVE ABNORMALITY, CONSIDER ANTEROLATERAL ISCHEMIA [-0.1+ mV T WAVE IN V3-V6] No previous ECG available for comparison Electronically Signed On 01-04-2025 14:30:55 CDT by Ervin Blanco M.D.
[2025-01-04 14:26] LABS: Basophils Absolute Auto 0.1 K/mm3 (0.0-0.1); Basophils Percent Auto 0.6 % (0.2-1.2); Eosinophils Absolute Auto 0.2 K/mm3 (0-0.3); Immature Granulocyte Absolute 0.04 K/mm3 (0.00-0.031); Immature Granulocyte Percent A 0.5 % (0-0.5); Lymphocytes Absolute Auto 1.42 K/mm3 (0.9-3.2); Lymphocytes Percent Auto 17.9 % (18.3-44.2); Mean Corpuscular HGB Conc 32.5 g/dl (32-36); Mean Corpuscular Volume 89.3 fl (80-100); Mean Platelet Volume 9.9 fl (7.4-10.4); Monocytes Absolute Auto 0.6 K/mm3 (0.1-0.6); Monocytes Percent Auto 7.3 % (2.6-8.5); Neutrophils Absolute Auto 5.7 K/mm3 (1.3-6.7); Neutrophils Percent Auto 71.7 % (45.5-73.1); Platelet Count Result 253 k/mm3 (150-375); Red Blood Count 4.48 M/mm3 (4.2-5.4); Red Cell Distribution Width 13.1 % (11.5-14.5); White Blood Count 7.9 K/mm3 (4.5-10.0)
--- OUTSIDE RECORDS SUMMARY | 2025-01-04 14:28 | XMS_ITS | Encounter Summary ---
Author Organization [facility] Address [address] [place] [address] Attn: [place] [address] Care Team Providers Care Torpedo Shooter Name Role Phone Aarti Ayala MD Primary Care Provider Encounter Details Date Type Department Care Team (Late st Contact Info) Description 05/30/1992 Outpatient Historical Sunil Guzman MD [address] [place] [phone] Social History Tobacco Use Types Packs/Day Years Used Date Smoking Tobacco: Never Assessed Comments Unknown Sex and Gender Information Value Date Recorded Sex Assigned at Not on file Legal Sex Female 4:49 AM THREAD GRINDER Gender Identity Not on file Sexual Orientation Not on file documented as of this encounter Plan of Treatment Not on file documented as of this encounter Visit Diagnoses Not on filedocumented in this encounter Care Teams Torpedo Shooter Relationship Specialty Start Date End Date Aarti Ayala MD [address] [place] [address] PCP - General 06/22/06 documented as of this encounter
--- OUTSIDE RECORDS SUMMARY | 2025-01-04 14:28 | XMS_ITS | Encounter Summary ---
Author Organization [facility] Address [address] [place] [address] Attn: [place] [address] Care Team Providers Care Entertainment Agent Name Role Phone Aarti Ayala MD Primary Care Provider [phone] Encounter Details Date Type Department Care Team (Late st Contact Info) Description 10/19/1993 Outpatient Historical Sunil Guzman MD [address] [place] [phone] Social History Tobacco Use Types Packs/Day Years Used Date Smoking Tobacco: Never Assessed Comments Unknown Sex and Gender Information Value Date Recorded Sex Assigned at Not on file Legal Sex Female 4:49 AM CHANGE OVER Gender Identity Not on file Sexual Orientation Not on file documented as of this encounter Plan of Treatment Not on file documented as of this encounter Visit Diagnoses Not on filedocumented in this encounter Care Teams Entertainment Agent Relationship Specialty Start Date End Date Aarti Ayala MD [address] [place] [address] PCP - General 06/22/06 documented as of this encounter
--- OUTSIDE RECORDS SUMMARY | 2025-01-04 14:28 | XMS_ITS | Clinical Summary ---
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
--- OUTSIDE RECORDS SUMMARY | 2025-01-04 14:28 | XMS_ITS | Encounter Summary ---
Author Organization [facility] Address [address] [facility] [place] [address] Care Team Providers Care Career Specialist Name Role Phone Neftali Ocampo MD Primary Care Provider [phone] Encounter Details Date Type Department Care Team (Late st Contact Info) Description 01/22/2022 Lab Requisition [facility] Care DermPath Lab [address] [facility] [phone] Vj Barkley MD [address] [place] [address] Social History Tobacco Use Types Packs/Day Years Used Date Smoking Tobacco: Former Cigarettes Q uit: 08/28/1976 Smokeless Tobacco: Never Alcohol Use Standard Drinks/Week Comments No 0 (1 standard drink = 0.6 oz pur e alcohol) Comments Unknown Sex and Gender Information Value Date Recorded Sex Assigned at Not on file Legal Sex Female 5:15 PM INSURANCE HEALTHCARE REPRESENTATIVE Gender Identity Not on file Sexual Orientation Not on file documented as of this encounter Plan of Treatment Not on file documented as of this encounter Procedures Procedure Name Priority Date/Time Associated Diagnosis Comments DERMATOPATHOLOGY Routine 01/21/2022 12:0 0 AM CDT documented in this encounter Results * DERMATOPATHOLOGY (01/21/2022 12:00 AM CDT) Case Report Dermatopathology Report Case: [id number] Authorizing Provider: Vj Barkley MD Collected: 01/21/2022 12:00 AM Ordering Location: [facility] DermPath Lab Received: 01/22/2022 01:56 PM Pathologist: [...] specimen consists of a shave removal measuring [id number] and it is inked. Jar 0. 2:57 [...] characteristic determined by the Dermatopathology Laboratory at [facility], directed by Dr. Cheo Mccarthy. These tests need not be, and therefore are not, approved by the [place] Food and Drug Administration. The tests are used for clinical purposes. Billing Codes Specimen Charges Stain Charges 42631 1 2 2:57 PM CDT DERMATOPATHOLOGY LABORATORY Embedded Images 2 2:57 PM CDT DERMATOPATHOLOGY LABORATORY Pathology/Cytolog y TISSUE SPECIMEN FROM SKIN / Unknown 01/21/2022 01/22/2022 1:56 PM CDT Vj Barkley MD LAB - PATHOLOGY/CYTOLOGY ORD ERABLES Final Result DERMATOPATHOLOGY LABORATORY [facility] - Department of Dermatology [facility] Specialized Medicine [facility], 3rd Floor [address] [phone] documented in this encounter Visit Diagnoses Not on filedocumented in this encounter Care Teams Career Specialist Relationship Specialty Start Date End Date Neftali Ocampo MD [address] [place] [address] PCP - General 08/28/11 documented as of this encounter
--- OUTSIDE RECORDS SUMMARY | 2025-01-04 14:28 | XMS_ITS | Encounter Summary ---
Author Organization [facility] Address [address] [place] [address] Care Team Providers Care Director Of Operations Support Name Role Phone Neftali Ocampo MD Primary Care Provider [phone] Encounter Details Date Type Department Care Team (Late st Contact Info) Description 02/04/2023 Lab Requisition [facility] - DermPath Lab [address] [facility] [place] [phone] Vj Barkley MD [address] [place] [address] Social History Tobacco Use Types Packs/Day Years Used Date Smoking Tobacco: Former Cigarettes Q uit: 08/28/1976 Smokeless Tobacco: Never Alcohol Use Standard Drinks/Week Comments No 0 (1 standard drink = 0.6 oz pur e alcohol) Comments Unknown Sex and Gender Information Value Date Recorded Sex Assigned at Not on file Legal Sex Female 5:15 PM EQUIPMENT MONITOR PHOTOTYPESETTING Gender Identity Not on file Sexual Orientation Not on file documented as of this encounter Plan of Treatment Not on file documented as of this encounter Procedures Procedure Name Priority Date/Time Associated Diagnosis Comments DERMATOPATHOLOGY Routine 02/03/2023 12:0 0 AM CDT documented in this encounter Results * DERMATOPATHOLOGY (02/03/2023 12:00 AM CDT) Case Report Dermatopathology Report Case: [id number] Authorizing Provider: Vj Barkley MD Collected: 02/03/2023 12:00 AM Ordering Location: [facility] DermPath Lab Received: 02/04/2023 01:40 [...] specimen consists of a shave removal measuring [id number] mm. Jar 0. 3:54 PM CDT DERMATOPATHOLOGY [...] Codes Specimen Charges Stain Charges 55328 1 25062 1 3:54 PM CDT DERMATOPATHOLOGY LABORATORY Embedded Images 3:54 PM CDT DERMATOPATHOLOGY LABORATORY Pathology/Cytolog y TISSUE SPECIMEN FROM SKIN / Unknown 02/03/2023 02/04/2023 1:40 PM CDT us Vj Barkley MD LAB - PATHOLOGY/CYTOLOGY ORD ERABLES Final Result DERMATOPATHOLOGY LABORATORY [facility] - Department of Dermatology [address], [address] [phone] documented in this encounter Visit Diagnoses Not on filedocumented in this encounter Care Teams Director Of Operations Support Relationship Specialty Start Date End Date Neftali Ocampo MD [address] [place] [address] PCP - General 08/28/11 documented as of this encounter
--- OUTSIDE RECORDS SUMMARY | 2025-01-04 14:28 | XMS_ITS | Encounter Summary ---
Author Organization [facility] Address [address] [place] [address] Care Team Providers Care Chopping Machine Operator Name Role Phone Neftali Ocampo MD Primary Care Provider [phone] Encounter Details Date Type Department Care Team (Late st Contact Info) Description 07/07/2019 Lab Requisition [facility] DermPath Lab [address] [facility] [place] [phone] Vj Barkley MD [address] [place] [address] Social History Tobacco Use Types Packs/Day Years Used Date Smoking Tobacco: Former Cigarettes Q uit: 08/28/1976 Smokeless Tobacco: Never Alcohol Use Standard Drinks/Week Comments No 0 (1 standard drink = 0.6 oz pur e alcohol) Comments Unknown Sex and Gender Information Value Date Recorded Sex Assigned at Not on file Legal Sex Female 5:15 PM BIOSTATISTICS PROFESSOR Gender Identity Not on file Sexual Orientation Not on file documented as of this encounter Plan of Treatment Not on file documented as of this encounter Procedures Procedure Name Priority Date/Time Associated Diagnosis Comments DERMATOPATHOLOGY Routine 07/06/2019 12:0 0 AM BIOSTATISTICS PROFESSOR documented in this encounter Results * DERMATOPATHOLOGY (07/06/2019 12:00 AM BIOSTATISTICS PROFESSOR) Case Report Dermatopathology Report Case: [id number] Authorizing Provider: Vj Barkley MD Collected: 07/06/2019 12:00 AM Ordering Location: [facility] DermPath Lab Received: 07/07/2019 01:58 PM Pathologist: Tiffany Gibbons MD Specimens: A) - Skin, philtrum at edge of frances lip B) - Skin, right upper back 1:24 PM [facility] DERMATOPATHOLOGY LABORATORY Final Diagnosis Specimen A. 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 SKIN, right upper back: BASAL CELL CARCINOMA, SUPERFICIAL MULTIFOCAL (C44.519) 1:24 PM [facility] DERMATOPATHOLOGY LABORATORY Clinical History A: R/O SCC. B: R/O BCC. 1:24 PM [facility] DERMATOPATHOLOGY LABORATORY Gross Description Specimen A: Received is one formalin filled container labeled with the patient's name and designated philtrum at edge of frances lip. The specimen consists of a shave biopsy measuring [id number]. Jar 0. Specimen B: Received is one formalin filled container labeled with the patient's name and designated right upper back. The specimen consists of a curettage and desiccation biopsy measuring [id number]. Jar 0. 1:24 PM [facility] DERMATOPATHOLOGY LABORATORY Microscopic Description Specimen A. [...] cytoplasmic ratio and peripheral palisading. 1:24 PM [facility] DERMATOPATHOLOGY LABORATORY Disclaimer An external and internal positive and negative controls are appropriate for the histochemical, immunohistochemical and immunofluorescence stain(s) in this case (if any), except where stated explicitly. The performance characteristics of the stain(s) cited in this report were developed and its performance characteristic determined by the Dermatopathology Laboratory at [facility], directed by Dr. Cheo Mccarthy. These tests need not be, and therefore are not, approved by the [place] Food and Drug Administration. The tests are used for clinical purposes. Billing Codes Specimen Charges Stain Charges 85718 41072 1 1 9 1:24 PM BIOSTATISTICS PROFESSOR DERMATOPATHOLOGY LABORATORY Embedded Images 9 1:24 PM BIOSTATISTICS PROFESSOR DERMATOPATHOLOGY LABORATORY Pathology/Cytology TISSUE SPECIMEN FROM SKIN / Unknown 07/06/2019 07/07/2019 1:58 PM BIOSTATISTICS PROFESSOR Miscellaneous samples (specimen) TISSUE SPECIMEN FROM SKIN / Unknown 07/06/2019 07/07/2019 1:58 PM BIOSTATISTICS PROFESSOR Vj Barkley MD LAB - PATHOLOGY/CYTOLOGY ORD ERABLES Final Result DERMATOPATHOLOGY LABORATORY [facility] - Department of Dermatology [address] [place] [address], 5th Floor Lab [address] [phone] documented in this encounter Visit Diagnoses Not on filedocumented in this encounter Care Teams Chopping Machine Operator Relationship Specialty Start Date End Date Neftali Ocampo MD [address] [place] [address] PCP - General 08/28/11 documented as of this encounter
--- OUTSIDE RECORDS SUMMARY | 2025-01-04 14:28 | XMS_ITS | Encounter Summary ---
Author Organization [facility] Address [address] [facility] [place] [address] Care Team Providers Care Cleater Name Role Phone Neftali Ocampo MD Primary Care Provider [phone] Encounter Details Date Type Department Care Team (Late st Contact Info) Description 09/26/2020 Lab Requisition [facility] Care DermPath Lab [address] [facility] [place] [phone] Vj Barkley MD [address] [place] [address] Social History Tobacco Use Types Packs/Day Years Used Date Smoking Tobacco: Former Cigarettes Q uit: 08/28/1976 Smokeless Tobacco: Never Alcohol Use Standard Drinks/Week Comments No 0 (1 standard drink = 0.6 oz pur e alcohol) Comments Unknown Sex and Gender Information Value Date Recorded Sex Assigned at Not on file Legal Sex Female 5:15 PM QUALITY CONTROL TECH Gender Identity Not on file Sexual Orientation Not on file documented as of this encounter Plan of Treatment Not on file documented as of this encounter Procedures Procedure Name Priority Date/Time Associated Diagnosis Comments DERMATOPATHOLOGY Routine 09/25/2020 12:0 0 AM QUALITY CONTROL TECH documented in this encounter Results * DERMATOPATHOLOGY (09/25/2020 12:00 AM QUALITY CONTROL TECH) Case Report Dermatopathology Report [id number]: [id number] Authorizing Provider: Vj Barkley MD Collected: 09/25/2020 12:00 AM Ordering Location: [facility] DermPath Lab Received: 09/26/2020 12:34 PM Pathologist: Bonifacio Mccarthy MD Specimens: A) - Skin, left upper outer arm B) - Skin, right lateral upper back 2:[address] [facility] DERMATOPATHOLOGY LABORATORY Final Diagnosis Specimen A. 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 SKIN, right lateral upper back: BASAL CELL CARCINOMA, NODULAR TYPE (C44.519) 2:[address] [facility] DERMATOPATHOLOGY LABORATORY Clinical History A-B: R/O BCC. 2:[address] [facility] DERMATOPATHOLOGY LABORATORY Gross Description Specimen A: Received is one formalin filled container labeled with the patient's name and designated left upper outer arm. The specimen consists of a curettage and desiccation biopsy measuring [id number]. Jar 0. Specimen B: Received is one formalin filled container labeled with the patient's name and designated right lateral upper back. The specimen consists of a curettage and desiccation biopsy measuring [id number]. Jar 0. 2:[address] [facility] DERMATOPATHOLOGY LABORATORY Microscopic Description Specimen A. [...] cytoplasmic ratio and peripheral palisading. 2:[address] [facility] DERMATOPATHOLOGY LABORATORY Disclaimer An external and internal positive and negative controls are appropriate for the histochemical, immunohistochemical and immunofluorescence stain(s) in this case (if any), except where stated explicitly. The performance characteristics of the stain(s) cited in this report were developed and its performance characteristic determined by the Dermatopathology Laboratory at [facility], directed by Dr. Cheo Mccarthy. These tests need not be, and therefore are not, approved by the [place] Food and Drug Administration. The tests are used for clinical purposes. Billing Codes Specimen Charges Stain Charges 42695 26679 1 1 2:20 PM QUALITY CONTROL TECH DERMATOPATHOLOGY LABORATORY Embedded Images 2:20 PM QUALITY CONTROL TECH DERMATOPATHOLOGY LABORATORY Pathology/Cytology TISSUE SPECIMEN FROM SKIN / Unknown 09/25/2020 09/26/2020 12:34 PM QUALITY CONTROL TECH Miscellaneous samples (specimen) TISSUE SPECIMEN FROM SKIN / Unknown 09/25/2020 09/26/2020 12:34 PM QUALITY CONTROL TECH Vj Barkley MD LAB - PATHOLOGY/CYTOLOGY ORD ERABLES Final Result DERMATOPATHOLOGY LABORATORY [facility] - Department of Dermatology [facility] Specialized Medicine [address] [place] [address], [address] [phone] documented in this encounter Visit Diagnoses Not on filedocumented in this encounter Care Teams Cleater Relationship Specialty Start Date End Date Neftali Ocampo MD [address] [place] [address] PCP - General 08/28/11 documented as of this encounter
--- OUTSIDE RECORDS SUMMARY | 2025-01-04 14:28 | XMS_ITS | Clinical Summary ---
Author Organization [facility] Address [address] [place] [address] Care Team Providers Care Driver Engineer Name Role Phone Neftali Ocampo MD Primary Care Provider [phone] Source Comments [facility],non-owned Affiliates and Associated Physician Practices is amultiple site organization consisting of ambulatory clinics and hospital sitesin [place], [place], [place] and [place]. This disclosure is being madepursuant to the Care Everywhere program and may not contain all information available regarding this patient. Last updated 18.[facility] Allergies Active Allergy Reactions Criticality Noted Date [...] on file Legal Sex Female 5:15 PM ENROLLMENT SERVICES VICE PRESIDENT Gender Identity Not on file Sexual Orientation Not on file Last Filed Vital Signs Vital Sign Reading Time Taken Comments Blood Pressure 136/78 07/31/2017 1:19 PM ENROLLMENT SERVICES VICE PRESIDENT Pulse 62 07/31/2017 1:19 PM ENROLLMENT SERVICES VICE PRESIDENT Temperature 36.8 C (98.2 F) 07/31/2017 1:19 PM ENROLLMENT SERVICES VICE PRESIDENT Respiratory Rate 12 07/31/2017 1:19 PM ENROLLMENT SERVICES VICE PRESIDENT Oxygen Saturation 96% 07/31/2017 1:19 PM ENROLLMENT SERVICES VICE PRESIDENT Inhaled Oxygen Concentration - - Weight 78.4 kg (172 lb 14.4 oz) 07/31/2017 1:19 PM ENROLLMENT SERVICES VICE PRESIDENT Height 165.1 cm (5' 5 ) 07/31/2017 1:19 PM ENROLLMENT SERVICES VICE PRESIDENT Body Mass Index 28.77 07/31/2017 1:19 PM ENROLLMENT SERVICES VICE PRESIDENT Plan of Treatment Health Maintenance Due Date [...] to complete this topic Insurance MEDICARE MEDICARE [facility] Care Teams Driver Engineer Relationship Specialty Start Date End Date Neftali Ocampo MD [address] [place] [address] PCP - General 08/28/11
--- OUTSIDE RECORDS SUMMARY | 2025-01-04 14:28 | XMS_ITS | Encounter Summary ---
Author Organization [facility] Address [address] [place] [address] Care Team Providers Care Nurse First Aid Name Role Phone Aarti Ayala MD Primary Care Provider [phone] Encounter Details Date Type Department Care Team (Late st Contact Info) Description 06/22/2006 Outpatient Historical [facility] AUDIOLOGY Mario Penn MD NO ADDRESS ON FILE SENSRY HEARNG LOSS,BILAT (Primary Dx) Social History Tobacco Use Types Packs/Day Years Used Date Smoking Tobacco: Never Assessed Comments Unknown Sex and Gender Information Value Date Recorded Sex Assigned at Not on file Legal Sex Female 4:49 AM SCHOOL COUNSELLOR Gender Identity Not on file Sexual Orientation Not on file documented as of this encounter Plan of Treatment Not on file documented as of this encounter Visit Diagnoses Diagnosis Sensory hearing loss, bilateral- Primary documented in this encounter Care Teams Nurse First Aid Relationship Specialty Start Date End Date Aarti Ayala MD [address] [place] [address] PCP - General 06/22/06 documented as of this encounter
--- NOTE | 2025-01-04 14:29 | ED_ITS ---
HPI - Syncope General Chief Complaint: Syncope <Mis Adames PA-C - Last Filed: 01/04/25 18:01> Stated Complaint: Near syncope, diarrhea <Mis Adames PA-C - Last Filed: 01/04/25 18:01> Time Seen by Provider: 01/04/25 14:29 <Mis Adames PA-C - Last Filed: 01/04/25 18:01> Focused HPI: This is a 79 year old female that presents to the ER for near-syncope. Reports she was shopping. Hedrick like she needed to use the restroom. Had diarrhea. Tried to get to the car and could not carry her stuff to the car because she felt so weak and lightheaded. Reports she felt weak, lightheaded, hot, like she was going to pass out. Reports 911 was called. She did not pass out or fall. She leaned against the car. Reports this happened a couple of months ago and was seen at another ER for this. Reports palpitations, shortness of breath. Denies chest pain. GENERAL: Elderly, well-nourished, and in no acute distress. HEAD: Normocephalic, atraumatic. CHEST: Clear to auscultation. ?No respiratory distress. HEART: Regular rate and rhythm.? NEURO: ?Alert and oriented x3. Patient screened in triage and initial orders placed.? ?Additional care and disposition to be based upon?diagnostic testing and treatment. <Mis Adames PA-C - Last Filed: 01/04/25 18:01> History of Present Illness HPI narrative: Brief HPI. Nursing feel after abdominal cramping and bowel movement. Similar symptoms in July of 2023 and seen at [facility]. <Lamont Tyler MD - Last Filed: 01/04/25 17:55> Related Data Allergies/Adverse Reactions: Allergies Allergy/AdvReac Type Severity Reaction Status Date / Time prednisone Allergy Unknown Redness of Verified 01/04/25 10:03 Skin amlodipine AdvReac Unknown lower Verified 01/04/25 10:03 extremity swelling codeine AdvReac Unknown Nausea and Verified 01/04/25 10:03 Vomiting <Mis Adames PA-C - Last Filed: 01/04/25 18:01> Review of Systems 2 Review of Systems: All systems reviewed & are unremarkable except as noted in HPI and below <Lamont Tyler MD - Last Filed: 01/04/25 17:55> Constitutional: Constitutional: Reports no additional constitutional complaints <Lamont Tyler MD - Last Filed: 01/04/25 17:55> Cardiovascular: Cardiovascular: Reports no additional cardiovascular complaints <Lamont Tyler MD - Last Filed: 01/04/25 17:55> Respiratory: Respiratory: Reports no additional respiratory complaints < Lamont Tyler MD - Last Filed: 01/04/25 17:55> Gastrointestinal: Gastrointestinal: Reports no additional gastrointestinal complaints <Lamont Tyler MD - Last Filed: 01/04/25 17:55> Neurologic: Reports system reviewed and no additional complaints, except as documented <Lamont Tyler MD - Last Filed: 01/04/25 17:55> PMFSH Past Medical History Medical History: Medical History IDRIS (obstructive sleep apnea) Anxiety Arthritis Hemorrhoids Hypertension Vertigo Medial epicondylitis of right elbow GERD (gastroesophageal reflux disease) <Mis Adames PA-C - Last Filed: 01/04/25 18:01> Surgical History Surgical History: Surgical History History of cardiac radiofrequency ablation Status post de Quervain's release surgery Status post hysterectomy <Mis Adames PA-C - Last Filed: 01/04/25 18:01> Family History Family History: Family History Father Hypertension Family history of coronary artery disease Mother Hypertension Cerebrovascular accident Family history of diabetes mellitus in first degree relative Family history of coronary artery disease Sibling Family history of lung cancer Cerebrovascular accident Other Diabetes mellitus Family history of arthritis <Mis Adames PA-C - Last Filed: 01/04/25 18:01> Social History Social History: Social History (Updated 01/04/25 @ 10:04 by Maeve De La Torre) Smoking packs per day: 0.25 Smoking cigarettes per day: 5.0 Years smoked: 1 Smoking pack-years: 0.25 Smoking status: Former smoker (less than 1ppd x 1 year - quit over 40 years ago) Tobacco type: cigarettes Second hand tobacco smoke exposure: No Smoking end date: 08/31/79 Alcohol intake: never Substance use: never Substance use type: does not use Do You Feel Safe in your Home?: Yes Lack of Transportation: No Lack of Food: Never True Current Housing: I Have Housing Concerned About Future Housing: No Difficulty Paying Gas/Electric Bills: No Difficulty Paying for Meds: No Currently Unemployed: YES Education: High School Diploma/GED Difficulty w/ Childcare or Family Care: No Living arrangements: alone Occupation/Education: retired Gender identity (if verbalized by the patient): Female Sexual Orientation (if Verbalized by the Patient): Straight or Heterosexual <Mis Adames PA-C - Last Filed: 01/04/25 18:01> Exam 2 Narrative: GENERAL: Well-appearing, well-nourished, and in no acute distress. HEAD: Normocephalic, atraumatic. ENT: Mucous membranes moist. CHEST: Clear to auscultation. No respiratory distress. HEART: Regular rate and rhythm. Normal peripheral pulses. ABDOMEN: Soft, nontender, nondistended. EXTREMITIES: Normal range of motion. No edema. SKIN: Warm, dry, no rash. NEURO: Alert and oriented x3. PSYCH: Normal mood and affect. <Lamont Tyler MD - Last Filed: 01/04/25 17:55> Course Course Emergency Course: Reviewed patient's epic chart and patient had incomplete bundle branch block at the time of her last syncopal episode. She then had a event monitor that was unremarkable. Labs and imaging unremarkable today. Discharge. <Lamont Tyler MD - Last Filed: 01/04/25 17:55> Vital Signs Vital signs: Vital Signs Temperature 97.8 F 01/04/25 13:46 Pulse Rate 73 01/04/25 13:46 Respiratory Rate 17 01/04/25 13:46 Blood Pressure 110/57 L 01/04/25 13:46 Pulse Oximetry 94 01/04/25 13:46 Oxygen Delivery Room Air 01/04/25 13:46 Temperature 97.9 F 01/04/25 17:58 Pulse Rate 80 01/04/25 17:58 Respiratory Rate 16 01/04/25 17:58 Blood Pressure 156/84 H 01/04/25 17:58 Pulse Oximetry 98 01/04/25 17:58 Oxygen Delivery Room Air 01/04/25 13:46 <Mis Adames PA-C - Last Filed: 01/04/25 18:01> Vital Signs Temperature 97.8 F 01/04/25 13:46 Pulse Rate 73 01/04/25 13:46 Respiratory Rate 17 01/04/25 13:46 Blood Pressure 110/57 L 01/04/25 13:46 Pulse Oximetry 94 01/04/25 13:46 Oxygen Delivery Room Air 01/04/25 13:46 Temperature 97.9 F 01/04/25 17:58 Pulse Rate 80 01/04/25 17:58 Respiratory Rate 16 01/04/25 17:58 Blood Pressure 156/84 H 01/04/25 17:58 Pulse Oximetry 98 01/04/25 17:58 Oxygen Delivery Room Air 01/04/25 13:46 <Lamont Tyler MD - Last Filed: 01/04/25 17:55> MDM - Syncope Lab Data Result diagrams: 01/04/25 14:22 01/04/25 15:43 <Mis Adames PA-C - Last Filed: 01/04/25 18:01> Labs: Lab Results 01/04/25 01/04/25 Range/Units 14:22 15:43 WBC 7.9 (4.5-10.0) K/mm3 RBC 4.48 (4.2-5.4) M/mm3 Hgb 13.0 (12.0-15.0) g/dL Hct 40.0 (37.0-47.0) % MCV 89.3 (80-100) fl MCH 29.0 (26-34) pg MCHC 32.5 (32-36) g/dl RDW 13.1 (11.5-14.5) % Plt Count 253 (150-375) k/mm3 MPV 9.9 (7.4-10.4) fl Immature Gran % (Auto) 0.5 (0-0.5) % Neut % (Auto) 71.7 (45.5-73.1) % Lymph % (Auto) 17.9 L (18.3-44.2) % [place] % (Auto) 7.3 (2.6-8.5) % Eos % (Auto) 2.0 (0-4.4) % Baso % (Auto) 0.6 (0.2-1.2) % Lymph # (Auto) 1.42 (0.9-3.2) K/mm3 [place] # (Auto) 0.6 (0.1-0.6) K/mm3 Eos # (Auto) 0.2 (0-0.3) K/mm3 Baso # (Auto) 0.1 (0.0-0.1) K/mm3 Abs Immat Gran (auto) 0.04 H (0.00-0.031) K/mm3 Absolute Neuts (auto) 5.7 (1.3-6.7) K/mm3 Absolute Nucleated RBC 0.000 (0.0-0.012) K/mm3 Nucleated RBC % 0.0 (0.0-0.2) % Sodium 140 (137-145) mmol/L Potassium 3.5 (3.4-5.0) mmol/L Chloride 100 (98-107) mmol/L Carbon Dioxide 30 (22-30) mmol/L Anion Gap 10 (4-12) mmol/L BUN 19 H (7-17) mg/dL Creatinine 1.20 H (0.7-1.0) mg/dL Estim Creat Clear Calc 37 ml/min Estimated GFR 43 L (59 - ) Glucose 100 (65-110) mg/dL Calcium 9.3 (8.4-10.2) mg/dL Total Bilirubin 0.2 (0.2-1.3) mg/dL AST 27 (14-36) U/L ALT 34 (6-35) U/L Alkaline Phosphatase 55 (38-126) U/L Troponin I < 0.012 (0.000-0.034) ng/mL Total Protein 8.0 (6.3-8.2) g/dL Albumin 4.8 (3.5-5.1) g/dL <Mis Adames PA-C - Last Filed: 01/04/25 18:01> Lab Results 01/04/25 01/04/25 Range/Units 14:22 15:43 WBC 7.9 (4.5-10.0) K/mm3 RBC 4.48 (4.2-5.4) M/mm3 Hgb 13.0 (12.0-15.0) g/dL Hct 40.0 (37.0-47.0) % MCV 89.3 (80-100) fl MCH 29.0 (26-34) pg MCHC 32.5 (32-36) g/dl RDW 13.1 (11.5-14.5) % Plt Count 253 (150-375) k/mm3 MPV 9.9 (7.4-10.4) fl Immature Gran % (Auto) 0.5 (0-0.5) % Neut % (Auto) 71.7 (45.5-73.1) % Lymph % (Auto) 17.9 L (18.3-44.2) % [place] % (Auto) 7.3 (2.6-8.5) % Eos % (Auto) 2.0 (0-4.4) % Baso % (Auto) 0.6 (0.2-1.2) % Lymph # (Auto) 1.42 (0.9-3.2) K/mm3 [place] # (Auto) 0.6 (0.1-0.6) K/mm3 Eos # (Auto) 0.2 (0-0.3) K/mm3 Baso # (Auto) 0.1 (0.0-0.1) K/mm3 Abs Immat Gran (auto) 0.04 H (0.00-0.031) K/mm3 Absolute Neuts (auto) 5.7 (1.3-6.7) K/mm3 Absolute Nucleated RBC 0.000 (0.0-0.012) K/mm3 Nucleated RBC % 0.0 (0.0-0.2) % Sodium 140 (137-145) mmol/L Potassium 3.5 (3.4-5.0) mmol/L Chloride 100 (98-107) mmol/L Carbon Dioxide 30 (22-30) mmol/L Anion Gap 10 (4-12) mmol/L BUN 19 H (7-17) mg/dL Creatinine 1.20 H (0.7-1.0) mg/dL Estim Creat Clear Calc 37 ml/min Estimated GFR 43 L (59 - ) Glucose 100 (65-110) mg/dL Calcium 9.3 (8.4-10.2) mg/dL Total Bilirubin 0.2 (0.2-1.3) mg/dL AST 27 (14-36) U/L ALT 34 (6-35) U/L Alkaline Phosphatase 55 (38-126) U/L Troponin I < 0.012 (0.000-0.034) ng/mL Total Protein 8.0 (6.3-8.2) g/dL Albumin 4.8 (3.5-5.1) g/dL <Lamont Tyler MD - Last Filed: 01/04/25 17:55> Imaging Data Radiologist's impression: ITS Impressions Chest X-Ray 01/04/25 14:52 IMPRESSION: No acute cardiopulmonary pathology. <Lamont Tyler MD - Last Filed: 01/04/25 17:55> ECG Data EKG #1: ECG completion date: 01/04/25 <Lamont Tyler MD - Last Filed: 01/04/25 17:55> ECG completion time: 14:23 <Lamont Tyler MD - Last Filed: 01/04/25 17:55> EKG Interpretation: normal rate (75), sinus rhythm and RBBB (Incomplete) <Lamont Tyler MD - Last Filed: 01/04/25 17:55> Critical Care Time Critical Care Time Critical Care Time: No <Mis Adames PA-C - Last Filed: 01/04/25 18:01> Discharge Plan Discharge Clinical Impression: Vasovagal near syncope <Mis Adames PA-C - Last Filed: 01/04/25 18:01> Patient Disposition: Home <Mis Adames PA-C - Last Filed: 01/04/25 18:01> Condition: Stable <SOM Morris Last Filed: 01/04/25 18:01> Instructions: Syncope (ED) <SOM Morris Last Filed: 01/04/25 18:01> Additional Instructions: Please return to the emergency department if you develop severe and persistent chest pain, difficulty breathing, dizziness, leg swelling or if you are coughing up blood as these can be signs of a medical emergency. Please call your doctor for a follow up appointment to determine the need for further testing. <Mis Adames PA-C - Last Filed: 01/04/25 18:01> Patient Language: Turkmen <Mis Adames PA-C - Last Filed: 01/04/25 18:01> Prescriptions: No Action losartan 100 mg tablet 100 mg PO DAILY Qty: 90 3RF amoxicillin-pot clavulanate 875-125 mg tablet 1 tablet PO Q12H 7 Days Qty: 14 0RF meloxicam 15 mg tablet 15 mg PO DAILY Qty: 30 1RF fluticasone propionate 50 mcg/actuation spray,suspension 1 spray intranasal DAILY Qty: 16 2RF Rx Instructions: administer into each nostril albuterol sulfate 90 mcg/actuation HFA aerosol inhaler 1 - 2 puff inhalation Q4-6H PRN (Reason: shortness of breath or wheezing) Qty: 8.5 0RF omeprazole 40 mg capsule,delayed release(DR/EC) See Rx Instructions .ROUTE .COMPLEX Qty: 90 2RF Dose Instruction: TAKE 1 CAPSULE BY MOUTH EVERY DAY Rx Instructions: TAKE 1 CAPSULE BY MOUTH EVERY DAY pravastatin 20 mg tablet See Rx Instructions .ROUTE .COMPLEX Qty: 90 3RF Dose Instruction: TAKE 1 TABLET BY MOUTH EVERY DAY Rx Instructions: TAKE 1 TABLET BY MOUTH EVERY DAY hydrochlorothiazide 25 mg tablet See Rx Instructions .ROUTE .COMPLEX Qty: 90 2RF Dose Instruction: TAKE ONE TABLET BY MOUTH ONCE DAILY Rx Instructions: TAKE ONE TABLET BY MOUTH ONCE DAILY potassium chloride [Klor-Con M10] 10 mEq tablet,ER particles/crystals See Rx Instructions .ROUTE .COMPLEX Qty: 90 0RF Dose Instruction: TAKE 1 TABLET BY MOUTH EVERY DAY Rx Instructions: TAKE 1 TABLET BY MOUTH EVERY DAY levothyroxine 112 mcg tablet 112 mcg PO .qod Qty: 90 2RF Rx Instructions: alternating w/ 100 mcg <Mis Adames PA-C - Last Filed: 01/04/25 18:01> Follow-up/Referrals: Neftali Ocampo MD [Primary Care Provider] - 1 Week <Mis Adames PA-C - Last Filed: 01/04/25 18:01>
[2025-01-04 16:05] LABS: Alanine Aminotransferase 34 U/L (6-35); Albumin Level 4.8 g/dL (3.5-5.1); Alkaline Phosphatase 55 U/L (38-126); Anion Gap 10 mmol/L (4-12); Aspartate Amino Transferase 27 U/L (14-36); Bilirubin,Total 0.2 mg/dL (0.2-1.3); Blood Urea Nitrogen 19 mg/dL (7-17); Calcium 9.3 mg/dL (8.4-10.2); Carbon Dioxide 30 mmol/L (22-30); Chloride 100 mmol/L (98-107); Estimated CRCL calculation 37 ml/min; Estimated Glomerular Filt Rate 43; Glucose 100 mg/dL (65-110); Potassium 3.5 mmol/L (3.4-5.0); Sodium 140 mmol/L (137-145)
[2025-01-04] MEDS: SODIUM CHLORIDE 0.9% IV 1,000 ML 999 ML IV CONT (16:08)
[2025-01-04 16:18] LABS: Troponin I < 0.012 ng/mL (0.000-0.034)
== END 2025-01-04 18:03 | disposition home or self-care (01) ==
PROVIDERS: Physician Assistant; Emergency Provider Emergency Medicine; PCP Family Medicine
DX: R55 Syncope and collapse (principal); I10 Essential (primary) hypertension; M19.90 Unspecified osteoarthritis, unspecified site; K21.9 Gastro-esophageal reflux disease without esophagitis; G47.33 Obstructive sleep apnea (adult) (pediatric); F41.9 Anxiety disorder, unspecified; Z90.710 Acquired absence of both cervix and uterus; Z87.891 Personal history of nicotine dependence; Z79.899 Other long term (current) drug therapy; I45.10 Unspecified right bundle-branch block; R94.31 Abnormal electrocardiogram [ECG] [EKG]
CPT/HCPCS: 36415; 71046; 80053; 84484; 85025; 93005; 96360; 99284; J7030

== ENCOUNTER 2025-02-22 13:56 | Outpatient (CLI) | payer MEDICARE, SELFPAY ==
[2025-02-22 14:34] LABS: Anion Gap 10 mmol/L (4-12); Blood Urea Nitrogen 21 mg/dL (7-17); Calcium 9.9 mg/dL (8.4-10.2); Carbon Dioxide 29 mmol/L (22-30); Chloride 99 mmol/L (98-107); Estimated Glomerular Filt Rate 50; Glucose 99 mg/dL (65-110); Potassium 3.7 mmol/L (3.4-5.0); Sodium 138 mmol/L (137-145)
== END 2025-02-22 13:57 | disposition home or self-care (01) ==
PROVIDERS: PCP Family Medicine; Visit Provider Physician Assistant Medical
DX: R79.89 Other specified abnormal findings of blood chemistry (principal); I10 Essential (primary) hypertension
CPT/HCPCS: 36415; 80048

== ENCOUNTER 2025-03-17 09:04 | Outpatient (CLI) | payer MEDICARE, SELFPAY ==
--- NOTE | ~2025-03-17 | MR_ITS ---
MRI of the lumbar spine Clinical History: Spinal stenosis Technique: Axial T2-weighted images, and sagittal T1-weighted, T2-weighted, and T2 fat-sat images wer e acquired. COMPARISON: 07/04/2023 Findings: No acute fracture or subluxation seen. Osseous alignment is unchanged from prior exam. No s uspicious bone marrow signal abnormality seen. At L1-L2, there is moderate degenerative disc narrowing. There is mild disc bulge with moderate facet arthropathy. No beatriz central canal stenosis. There is mild left neural foraminal narrowing. Right n eural foramen preserved. At L2-L3, there is moderate degenerative distended. There is mild disc bulge with moderate to advance d facet arthropathy. There is minimal central canal stenosis. There is minimal bilateral neural eric inal narrowing. At L3-L4, there is disc bulge with severe facet arthropathy. There is no beatriz central canal stenosis . There is moderate left neural foraminal narrowing and minimal right neural foraminal narrowing. At L4-L5, there is diffuse disc bulge with advanced facet arthropathy. There is moderate to advanced spinal canal stenosis. There is moderate to advanced right neural foraminal narrowing. Left neural fo ramen preserved. At L5-S1, there is severe degenerative disc narrowing. There is mild disc bulge with severe facet art hropathy. No central canal stenosis. There is severe right neural foraminal narrowing, and moderate t o severe left neural foraminal narrowing. Paravertebral soft tissues are unremarkable. 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 Reviewed, dictated and finalized at location . Impression: Moderate to advanced degenerative spondylosis throughout the lumbar spine, as d etailed above.
== END 2025-03-17 09:05 | disposition home or self-care (01) ==
LOC: GOSHIMG 09:06
PROVIDERS: PCP Orthopaedic Surgery; Visit Provider Nurse Practitioner Adult Health
DX: M47.816 Spondylosis without myelopathy or radiculopathy, lumbar region (principal); M48.061 Spinal stenosis, lumbar region without neurogenic claudication
CPT/HCPCS: 72148

== ENCOUNTER 2025-04-07 23:17 | Emergency (ER) | payer MEDICARE, SELFPAY ==
--- NOTE | ~2025-04-07 | CT_ITS ---
EXAMINATION: CT brain [facility] DATE: 04/08/2025 01:50 INDICATION: Headache, hypertension and nausea TECHNIQUE: Computed tomography (CT) of the head was performed without intravenous contrast. Sagittal and coronal reconstructions were performed. The mA was adjusted according to patient size. Iterative reconstruction technique was employed. The dose-length product was 605.33 mGy-cm. COMPARISON: head CT dated 10/30/2017 FINDINGS: No acute intracranial hemorrhage, acute infarction or abnormal extra axial fluid collection. There is been some progression of increased prominence of the subarachnoid spaces overlying the frontal lobes consistent with mild frontal lobe predominant atrophy. Ventricles are normal and symmetric. No mass/ mass effect. Changes of bilateral intraocular lens replacement. The orbits, paranasal sinuses and mas toid air cells are normal. IMPRESSION: 1. 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 No acute intracranial process. Reviewed, dictated and finalized at location A. IMPRESSION: 1. 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 No acute intracran ial process.
[2025-04-07 23:18] VITALS: BP 172/73; PULSE 85; RESP 16; TEMP 36.3; O2SAT 91
--- OUTSIDE RECORDS SUMMARY | 2025-04-07 23:20 | XMS_ITS | Encounter Summary ---
Author Organization [facility] Address [address] [place] [address] Care Team Providers Care Internet Researcher Name Role Phone Neftali Ocampo MD Primary Care Provider [phone] Encounter Details Date Type Department Care Team (Late st Contact Info) Description 01/22/2022 Lab Requisition [facility] Care DermPath Lab [address] [place] [id number] Vj Barkley MD [address] [place] [address] Social History Tobacco Use Types Packs/Day Years Used Date Smoking Tobacco: Former Cigarettes Q uit: 08/28/1976 Smokeless Tobacco: Never Alcohol Use Standard Drinks/Week Comments No 0 (1 standard drink = 0.6 oz pur e alcohol) Comments Unknown Sex and Gender Information Value Date Recorded Sex Assigned at Not on file Legal Sex Female 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 Gender Identity Not on file Sexual Orientation Not on file documented as of this encounter Plan of Treatment Not on file documented as of this encounter Procedures Procedure Name Priority Date/Time Associated Diagnosis Comments DERMATOPATHOLOGY Routine 01/21/2022 12:0 0 AM CDT documented in this encounter Results * DERMATOPATHOLOGY (01/21/2022 12:00 AM CDT) Case Report Dermatopathology Report Case: [id number] Authorizing Provider: Vj Barkley MD Collected: 01/21/2022 12:00 AM Ordering Location: [facility] DermPath Lab Received: 01/22/2022 01:56 PM Pathologist: Bonifacio Mccarthy MD Specimen: Skin, left upper medial chest 2 2:57 PM CDT DERMATOPATHOLOGY LABORATORY Final Diagnosis Specimen A. SKIN, left upper medial chest: BASAL CELL CARCINOMA, NODULAR TYPE (C44.519) NOT PRESENT AT SAMPLED MARGIN 2 2:57 PM CDT DERMATOPATHOLOGY LABORATORY at 1457 CDT Clinical History R/O BCC. Please Check Margins. 2 2:57 PM CDT DERMATOPATHOLOGY LABORATORY Gross Description Specimen A: Received is one formalin filled container labeled with the patients name and designated left upper medial chest. The specimen consists of a shave removal measuring [id number] and it is inked. Jar 0. 2:57 [...] by the Dermatopathology Laboratory at [facility] [place], directed by Dr. Cheo Mccarthy. These tests need not be, and therefore are not, approved by the [place] Food and Drug Administration. The tests are used for clinical purposes. Billing Codes Specimen Charges Stain Charges 52900 1 2 2:57 PM CDT DERMATOPATHOLOGY LABORATORY Embedded Images 2 2:57 PM CDT DERMATOPATHOLOGY LABORATORY Pathology/Cytolog y TISSUE SPECIMEN FROM SKIN / Unknown 01/21/2022 01/22/2022 1:56 PM CDT Vj Barkley MD LAB - PATHOLOGY/CYTOLOGY ORD ERABLES Final Result DERMATOPATHOLOGY LABORATORY [facility] - Department of Dermatology [facility] Specialized Medicine [facility], [address]rd Floor [address] [phone] documented in this encounter Visit Diagnoses Not on filedocumented in this encounter Care Teams Internet Researcher Relationship Specialty Start Date End Date Neftali Ocamop MD [address] [place] [address] PCP - General 08/28/11 documented as of this encounter
--- OUTSIDE RECORDS SUMMARY | 2025-04-07 23:20 | XMS_ITS | Encounter Summary ---
Author Organization [facility] Address [address] [place] [address] Care Team Providers Care Molder Offbearer Name Role Phone Neftali Ocampo MD Primary Care Provider [phone] Encounter Details Date Type Department Care Team (Late st Contact Info) Description 02/04/2023 Lab Requisition [facility] - DermPath Lab [address] [facility] [place] [phone] Vj Barkley MD [address] [place] [address] Social History Tobacco Use Types Packs/Day Years Used Date Smoking Tobacco: Former Cigarettes Q uit: 08/28/1976 Smokeless Tobacco: Never Alcohol Use Standard Drinks/Week Comments No 0 (1 standard drink = 0.6 oz pur e alcohol) Comments Unknown Sex and Gender Information Value Date Recorded Sex Assigned at Not on file 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 Gender Identity Not on file Sexual Orientation Not on file documented as of this encounter Plan of Treatment Not on file documented as of this encounter Procedures Procedure Name Priority Date/Time Associated Diagnosis Comments DERMATOPATHOLOGY Routine 02/03/2023 12:0 0 AM CDT documented in this encounter Results * DERMATOPATHOLOGY (02/03/2023 12:00 AM CDT) Case Report Dermatopathology Report Case: [id number] Authorizing Provider: Vj Barkley MD Collected: 02/03/2023 12:00 AM Ordering Location: [facility] DermPath Lab Received: 02/04/2023 01:40 PM Pathologist: Bonifacio Mccarthy MD Specimen: Skin, right radial volar prox forearm 3:54 PM CDT DERMATOPATHOLOGY LABORATORY Final Diagnosis Specimen A. 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 Check Margins. 3:54 PM CDT DERMATOPATHOLOGY LABORATORY Gross Description Specimen A: Received is one formalin filled container labeled with the patients name and designated right radial volar prox forearm. The specimen consists of a shave removal measuring [id number] mm. Jar 0. 3:54 PM CDT DERMATOPATHOLOGY [...] characteristic determined by the Dermatopathology Laboratory at [facility], directed by Dr. Cheo Mccarthy. These tests need not be, and therefore are not, approved by the [place] Food and Drug Administration. The tests are used for clinical purposes. Billing Codes Specimen Charges Stain Charges 48356 1 88755 1 3:54 PM CDT DERMATOPATHOLOGY LABORATORY Embedded Images 3:54 PM CDT DERMATOPATHOLOGY LABORATORY Pathology/Cytolog y TISSUE SPECIMEN FROM SKIN / Unknown 02/03/2023 02/04/2023 1:40 PM CDT us Vj Barkley MD LAB - PATHOLOGY/CYTOLOGY ORD ERABLES Final Result DERMATOPATHOLOGY LABORATORY [facility] - Department of Dermatology [address] [phone] documented in this encounter Visit Diagnoses Not on filedocumented in this encounter Care Teams Molder Offbearer Relationship Specialty Start Date End Date Neftali Ocampo MD [address] [place] [id number] PCP - General 08/28/11 documented as of this encounter
--- OUTSIDE RECORDS SUMMARY | 2025-04-07 23:20 | XMS_ITS | Clinical Summary ---
Author Organization [facility] [employer] Address [address] [facility] [place] [address] Care Team Providers Care Harvest Worker Name Role Phone Neftali Ocampo MD Primary Care Provider [phone] [facility],non-owned Affiliates and Associated Physician Practices is amultiple site organization consisting of ambulatory clinics and hospital sitesin [place], [place], [place] and [place]. This disclosure is being madepursuant to the Care Everywhere program and may not contain all information available regarding this patient. Last updated 18.[facility] Allergies Active Allergy Reactions Criticality Noted Date [...] on file Legal Sex Female 5:15 PM BRUSH WORKER Gender Identity Not on file Sexual Orientation Not on file Last Filed Vital Signs Vital Sign Reading Time Taken Comments Blood Pressure 136/78 07/31/2017 1:19 PM BRUSH WORKER Pulse 62 07/31/2017 1:19 PM BRUSH WORKER Temperature 36.8 C (98.2 F) 07/31/2017 1:19 PM BRUSH WORKER Respiratory Rate 12 07/31/2017 1:19 PM BRUSH WORKER Oxygen Saturation 96% 07/31/2017 1:19 PM BRUSH WORKER Inhaled Oxygen Concentration - - Weight 78.4 kg (172 lb 14.4 oz) 07/31/2017 1:19 PM BRUSH WORKER Height 165.1 cm (5' 5) 07/31/2017 1:19 PM BRUSH WORKER Body Mass Index 28.77 07/31/2017 1:19 PM BRUSH WORKER Plan of Treatment Health Maintenance Due Date [...] season) 2024 DEPRESSION SCREENING 08/31/2024 INFLUENZA VACCINE (#1) 2025 07/15/2013 HEPATITIS B VACCINE Aged Out No longe [...] to complete this topic Insurance MEDICARE MEDICARE [facility] Care Teams Harvest Worker Relationship Specialty Start Date End Date Neftali Ocampo MD [address] [place] [address] PCP - General 08/28/11
--- OUTSIDE RECORDS SUMMARY | 2025-04-07 23:20 | XMS_ITS | Continuity of Care Document ---
Demographics Address [address] [place] [address] Work Phone Email Address [facility] 2x3 as of 09/20 Preferred Language Unknown Marital Status Roman Catholic Affiliation Unknown Race Unknown Ethnic Group Unknown Author Organization [facility] Address [address] [place] [address] Phone Care Team Providers Care Pelletizer Operator Name Role Phone Keshia MS, OTR/L, PAMELAT, Kirsty Unavailable Unavailable Procedures Procedure Date THERAPEUTIC EXERCISES [...] Diagnoses Date Provider Providers Copied on Encounter [facility], [id number], tel:[phone] Hazel Hurst No Information 3 Keshia Wagner. [address] [facility], [address], [facility], [place]. tel:[phone] [facility], [place], [place], [id number], tel:[phone] Hazel Hurst No Information 3 Keshia Wagner. [address] [facility] [address], [place], [facility], . tel:[phone], [id number], tel:[phone] Ish No Information 0-201 3 Hasukhdeep Steinerfer. [address] [place] [address], [facility] [address], [facility], . tel:[phone], [id number], tel:[phone] Ish No Information 8 3 Haotisld Kristy. [address] [place] [address], [facility], [place], [place], [facility], . tel:[phone], [id number], tel:[phone] Hazel Hurst No Information 3 Haskuhdeep Steinerfer. [address] [place] [address], [facility] [address], [facility], . tel:[phone], [id number], tel:[phone] Hazel Hurst Pain in joint involving hand 3 3 Hauschielina Steinerfer. [address] [place] [address], [facility] [address], [facility], . tel:[phone] Family History Family Member Type Diagnosis Age At Onset No Information Payers Payer name Insurance type Covered constitution party ID Authorjamesa ticorbin(s) Medicare [place] [id number] [facility] CI [id number] Social History Type Description Quantity Date Captured [...]
--- OUTSIDE RECORDS SUMMARY | 2025-04-07 23:20 | XMS_ITS | Patient Health Record ---
Author Organization [facility] [facility] [employer] Address [address] [facility] Josue Jacobsen [facility] [address] [place], [place] [id number] Care Team Providers Care Dye Beck Reel Operator Name Role Phone ALFRED CRUZ Primary Care Provider Akua Ramirez Unavailable [phone] ALLERGIES Allergen (clinical drug ingredient) Drug/Non Drug [...] pain (724.2) Active confirmed Low back pain (725688432) Problem Myalgia (729.1) Active confirmed Myalgi a (50624963) Problem Osteoarthrosis (715.09) Active confirmed Osteoarthrosis (575725665) Problem POLYARTHRITIS (716.59) Active confirmed Polyarthritis (453945012) Problem Positive anti-CCP test (R76.8) Active confirmed 985429991 Problem Myalgia (M79.1) Active confirmed 506398 01 Problem Primary generalized (osteo)arthritis (M15.0) Active confirmed 508469400 Problem intermediate card tender current use of non-steroidal anti-inflammatori es (NSAID) (Z79.1) Active confirmed 225232875 Problem Former cigarette smoker (Z87.891) Active confirmed 655885265 PLAN OF TREATMENT Pending Test Test Name [...] End Date MEDICARE ASSIGNMENT [address] [place] [address] [id number] Nalini Beaver Self - patient is the insured 1 [employer] [facility] [address] [place] [address] [phone] [id number] Nalini Beaver Self - patient is the [...]
--- OUTSIDE RECORDS SUMMARY | 2025-04-07 23:21 | XMS_ITS | Encounter Summary ---
Author Organization [facility] Address [address] [facility] [place] [address] Care Team Providers Care Residential Youth Counselor Name Role Phone Neftali Ocampo MD Primary Care Provider [phone] Encounter Details Date Type Department Care Team (Late st Contact Info) Description 07/07/2019 Lab Requisition [facility] DermPath Lab [address] [facility] [place] [phone] Vj Barkley MD [address] [place] [address] Social History Tobacco Use Types Packs/Day Years Used Date Smoking Tobacco: Former Cigarettes Q uit: 08/28/1976 Smokeless Tobacco: Never Alcohol Use Standard Drinks/Week Comments No 0 (1 standard drink = 0.6 oz pur e alcohol) Comments Unknown Sex and Gender Information Value Date Recorded Sex Assigned at Not on file Legal Sex Female 5:15 PM VISUALIZER Gender Identity Not on file Sexual Orientation Not on file documented as of this encounter Plan of Treatment Not on file documented as of this encounter Procedures Procedure Name Priority Date/Time Associated Diagnosis Comments DERMATOPATHOLOGY Routine 07/06/2019 12:0 0 AM VISUALIZER documented in this encounter Results * DERMATOPATHOLOGY (07/06/2019 12:00 AM VISUALIZER) Case Report Dermatopathology Report Case: [id number] Authorizing Provider: Vj Barkley MD Collected: 07/06/2019 12:00 AM Ordering Location: [facility] DermPath Lab Received: 07/07/2019 01:58 PM Pathologist: Tiffany Gibbons MD Specimens: A) - Skin, philtrum at edge of frances lip B) - Skin, right upper back 1:24 PM [facility] DERMATOPATHOLOGY LABORATORY Final Diagnosis Specimen A. 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 SKIN, right upper back: BASAL CELL CARCINOMA, SUPERFICIAL MULTIFOCAL (C44.519) 1:24 PM [facility] DERMATOPATHOLOGY LABORATORY at 1324 VISUALIZER Clinical History A: R/O SCC. B: R/O BCC. 1:24 PM [facility] DERMATOPATHOLOGY LABORATORY Gross Description Specimen A: Received is one formalin filled container labeled with the patient's name and designated philtrum at edge of frances lip. The specimen consists of a shave biopsy measuring [id number]. Jar 0. Specimen B: Received is one formalin filled container labeled with the patient's name and designated right upper back. The specimen consists of a curettage and desiccation biopsy measuring [id number]. Jar 0. 1:24 PM [facility] DERMATOPATHOLOGY LABORATORY Microscopic Description Specimen A. SKIN, [...] cytoplasmic ratio and peripheral palisading. 1:24 PM [facility] DERMATOPATHOLOGY LABORATORY Disclaimer An external and internal positive and negative controls are appropriate for the histochemical, immunohistochemical and immunofluorescence stain(s) in this case (if any), except where stated explicitly. The performance characteristics of the stain(s) cited in this report were developed and its performance characteristic determined by the Dermatopathology Laboratory at [facility], directed by Dr. Cheo Mccarthy. These tests need not be, and therefore are not, approved by the [place] Food and Drug Administration. The tests are used for clinical purposes. Billing Codes Specimen Charges Stain Charges 54336 62084 1 1 9 1:24 PM [facility]ER DERMATOPATHOLOGY LABORATORY Embedded Images 9 1:24 PM [facility]ER DERMATOPATHOLOGY LABORATORY Pathology/Cytology TISSUE SPECIMEN FROM SKIN / Unknown 07/06/2019 07/07/2019 1:58 PM VISUALIZER Miscellaneous samples (specimen) TISSUE SPECIMEN FROM SKIN / Unknown 07/06/2019 07/07/2019 1:58 PM VISUALIZER Vj Barkley MD LAB - PATHOLOGY/CYTOLOGY ORD ERABLES Final Result DERMATOPATHOLOGY LABORATORY [facility] - Department of Dermatology [address] [place] [address], 5th Floor Lab [address] [phone] documented in this encounter Visit Diagnoses Not on filedocumented in this encounter Care Teams Residential Youth Counselor Relationship Specialty Start Date End Date Neftali Ocampo MD [address] [place] [address] PCP - General 08/28/11 documented as of this encounter
--- OUTSIDE RECORDS SUMMARY | 2025-04-07 23:21 | XMS_ITS | Encounter Summary ---
Author Organization [facility] Address [address] [place] [address] Attn: [place] [address] Care Team Providers Care Salvage Engineering Technician Name Role Phone Aarti Ayala MD Primary Care Provider Encounter Details Date Type Department Care Team (Late st Contact Info) Description 05/30/1992 Outpatient Historical Sunil Guzman MD [address] [place] [phone] Social History Tobacco Use Types Packs/Day Years Used Date Smoking Tobacco: Never Assessed Comments Unknown Sex and Gender Information Value Date Recorded Sex Assigned at Not on file Legal Sex Female 4:49 AM DATA ADMINISTRATOR Gender Identity Not on file Sexual Orientation Not on file documented as of this encounter Plan of Treatment Not on file documented as of this encounter Visit Diagnoses Not on filedocumented in this encounter Care Teams Salvage Engineering Technician Relationship Specialty Start Date End Date Aarti Ayala MD [address] [place] [address] PCP - General 06/22/06 documented as of this encounter
--- OUTSIDE RECORDS SUMMARY | 2025-04-07 23:21 | XMS_ITS | Encounter Summary ---
Author Organization [facility] Address [address] [facility] [place] [address] Care Team Providers Care Cloth Sponger Name Role Phone Neftali Ocampo MD Primary Care Provider [phone] Encounter Details Date Type Department Care Team (Late st Contact Info) Description 09/26/2020 Lab Requisition [facility] DermPath Lab [address] [facility] [place] [phone] Vj Barkley MD [address] [place] [address] Social History Tobacco Use Types Packs/Day Years Used Date Smoking Tobacco: Former Cigarettes Q uit: 08/28/1976 Smokeless Tobacco: Never Alcohol Use Standard Drinks/Week Comments No 0 (1 standard drink = 0.6 oz pur e alcohol) Comments Unknown Sex and Gender Information Value Date Recorded Sex Assigned at Not on file Legal Sex Female 5:15 PM AUTOMOTIVE MACHINIST APPRENTICE Gender Identity Not on file Sexual Orientation Not on file documented as of this encounter Plan of Treatment Not on file documented as of this encounter Procedures Procedure Name Priority Date/Time Associated Diagnosis Comments DERMATOPATHOLOGY Routine 09/25/2020 12:0 0 AM AUTOMOTIVE MACHINIST APPRENTICE documented in this encounter Results * DERMATOPATHOLOGY (09/25/2020 12:00 AM AUTOMOTIVE MACHINIST APPRENTICE) Case Report Dermatopathology Report Case: [id number] Authorizing Provider: Vj Barkley MD Collected: 09/25/2020 12:00 AM Ordering Location: [facility] D[facility] Received: 09/26/2020 12:34 PM Pathologist: Bonifacio Mccarthy MD Specimens: A) - Skin, left upper outer arm B) - Skin, right lateral upper back 2:20 PM [facility] DERMATOPATHOLOGY LABORATORY Final Diagnosis Specimen A. 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 SKIN, right lateral upper back: BASAL CELL CARCINOMA, NODULAR TYPE (C44.519) 1 2:20 PM [facility] DERMATOPATHOLOGY LABORATORY at 1420 AUTOMOTIVE MACHINIST APPRENTICE Clinical History A-B: R/O BCC. 2:20 PM [facility] DERMATOPATHOLOGY LABORATORY Gross Description Specimen A: Received is one formalin filled container labeled with the patient's name and designated left upper outer arm. The specimen consists of a curettage and desiccation biopsy measuring [id number]. Jar 0. Specimen B: Received is one formalin filled container labeled with the patient's name and designated right lateral upper back. The specimen consists of a curettage and desiccation biopsy measuring [id number]. Jar 0. 1 2:20 PM [facility] DERMATOPATHOLOGY LABORATORY Microscopic Description Specimen A. [...] ratio and peripheral palisading. 1 2:20 PM [facility] DERMATOPATHOLOGY LABORATORY Disclaimer An external and [...] purposes. Billing Codes Specimen Charges Stain Charges 76226 89860 1 1 1 2:20 PM AUTOMOTIVE MACHINIST APPRENTICE DERMATOPATHOLOGY LABORATORY Embedded Images 2:20 PM AUTOMOTIVE MACHINIST APPRENTICE DERMATOPATHOLOGY LABORATORY Pathology/Cytology TISSUE SPECIMEN FROM SKIN / Unknown 09/25/2020 09/26/2020 12:34 PM AUTOMOTIVE MACHINIST APPRENTICE Miscellaneous samples (specimen) TISSUE SPECIMEN FROM SKIN / Unknown 09/25/2020 09/26/2020 12:34 PM AUTOMOTIVE MACHINIST APPRENTICE Vj Barkley MD LAB - PATHOLOGY/CYTOLOGY ORD ERABLES Final Result DERMATOPATHOLOGY LABORATORY [facility] - Department of Dermatology [facility] Specialized Medicine [address] [place] [address], [address] [phone] documented in this encounter Visit Diagnoses Not on filedocumented in this encounter Care Teams Cloth Sponger Relationship Specialty Start Date End Date Neftali Ocampo MD [address] [place] [address] PCP - General 08/28/11 documented as of this encounter
--- OUTSIDE RECORDS SUMMARY | 2025-04-07 23:21 | XMS_ITS | Encounter Summary ---
Author Organization [facility] Address [address] [place] [address] Care Team Providers Care Control Panel Tester Name Role Phone Aarti Ayala MD Primary Care Provider [phone] Encounter Details Date Type Department Care Team (Late st Contact Info) Description 06/22/2006 Outpatient Historical [facility] Mario Penn MD NO ADDRESS ON FILE SENSRY HEARNG LOSS,BILAT (Primary Dx) Social History Tobacco Use Types Packs/Day Years Used Date Smoking Tobacco: Never Assessed Comments Unknown Sex and Gender Information Value Date Recorded Sex Assigned at Not on file Legal Sex Female 4:49 AM MEDICAL APPOINTMENT SCHEDULER Gender Identity Not on file Sexual Orientation Not on file documented as of this encounter Plan of Treatment Not on file documented as of this encounter Visit Diagnoses Diagnosis Sensory hearing loss, bilateral- Primary documented in this encounter Care Teams Control Panel Tester Relationship Specialty Start Date End Date Aarti Ayala MD [address] [place] [address] PCP - General 06/22/06 documented as of this encounter
--- OUTSIDE RECORDS SUMMARY | 2025-04-07 23:21 | XMS_ITS | Clinical Summary ---
Author Organization [facility] Address [address] [place] [address] Care Team Providers Care Medical Coder Name Role Phone Neftali Ocampo MD Primary [...] 08/14/2020 Assessment & Plan (08/14/2020 5:08 PM PULMONARY FELLOW): EKG shows incomplete right bundle branch block and nonspecific T-wave abnormalities. Because of this, a stress test without imaging would not be helpful. Jaw pain 08/14/2020 Assessment & Plan (08/14/2020 5:07 PM PULMONARY FELLOW): Nonexertional episodes of left jaw pain in [...] Hypothyroidism Assessment & Plan (08/14/2023 10:43 AM PULMONARY FELLOW): Patient on Levothyroxine for many years. Patient is clinically euthyroid TSH was normal at 3.4 on 07/12/23 Plan: Continue Levothyroxine 112 mcg/day The proper way of taking Levothyroxine reviewed with patient. She will follow up with new Pump Runner in 6 month Assessment & Plan (02/12/2023 [...] Hypercholesteremia Assessment & Plan (08/14/2020 5:07 PM PULMONARY FELLOW): Despite a previous history of not tolerating [...] diet Assessment & Plan (08/14/2020 5:07 PM PULMONARY FELLOW): Blood pressure is adequately controlled on current [...] Encounters Date Type Department Care Team Description 01/12/2025 10:00 AM CDT Therapy [facility] [place] [address] Jeni Fajardo, HIGH [employer] JUSTICE Trochanteric bursitis, right hip (Primary Dx); Spinal stenosis, lumbar region without neurogenic claudication; Trochanteric bursitis, left hip; Spinal stenosis of lumbar region, unspecified whether neurogenic claudication present 01/10/2025 9:15 AM CDT Therapy [facility] [place] [address] Jeni Fajardo, HIGH COURT JUSTICE Trochanteric bursitis, right hip (Primary Dx); Spinal stenosis, lumbar region without neurogenic claudication; Trochanteric bursitis, left hip; Spinal stenosis of lumbar region, unspecified whether neurogenic claudication present from Last 3 Months Surgical History Surgery [...] drink = 0.6 oz pur e alcohol) [facility] Utilities Answer Date Recorded In the past 12 months has [employer], gas, oil, or water [employer] threatened to shut off services in your [...] week 07/13/2023 How often do you attend [facility] or nondenominational services? Never 07/13/2023 Do you belong to any clubs o r organizations such as mu-ism groups, unions, fraternal or athletic groups, or [...] place to sleep or slept in a alf (including now)? No 07/13/2023 Personal Safety Answer [...] on file Legal Sex Female 11:32 PM PULMONARY FELLOW Gender Identity Not on file Sexual Orientation Not on file Obstetrics History Last Filed Vital Signs Vital Sign Reading Time Taken Comments Blood Pressure 118/80 10/03/2024 11:10 AM PULMONARY FELLOW Pulse 71 10/03/2024 11:10 AM PULMONARY FELLOW Temperature 36.4 C (97.6 F) 07/13/2023 7:46 AM PULMONARY FELLOW Respiratory Rate 14 07/13/2023 7:46 AM PULMONARY FELLOW Oxygen Saturation 94% 10/03/2024 11:10 AM PULMONARY FELLOW Inhaled Oxygen Concentration - - Weight 83.1 kg (183 lb 1.6 oz) 10/03/2024 11:10 AM PULMONARY FELLOW Height 165.1 cm (5' 5) 10/03/2024 11:10 AM PULMONARY FELLOW Body Mass Index 30.47 10/03/2024 11:10 AM PULMONARY FELLOW Plan of Treatment Health Maintenance Due Date Last Done Comments Depression Screening 1945 Hepatitis C Screening 1945 Osteoporosis Screening-Bone Density Scan 1945 DTaP/Tdap/Td Vaccine (1 - Tdap) 1957 Hepatitis B Screening 1964 Zoster Vaccine (1 of 2) 1996 Well Visit 65+ 2011 Pneumococcal vaccine 65+ (2 of 2 - PPSV23) 09/26/2016 09/26/2015 Fall Risk Assessment 07/13/2024 07/13/2023 Influenza Vaccine (#1) 2025 09/25/2015, 2012 Insurance MEDICARE [place] [id number] Advance Directives For more information, please contact: [phone] * Full Code (Latest Code Status on File) Date Activated Date Inactivated Comments 07/12/2023 5:18 PM 07/13/2023 2:43 PM Care Teams Medical Coder Relationship Specialty Start Date End Date Neftali Ocampo MD [address] [facility] [address] [place] [phone] PCP - General 12/11/11
--- OUTSIDE RECORDS SUMMARY | 2025-04-07 23:21 | XMS_ITS | Clinical Summary ---
Author Organization [facility] Address [address] [facility] Attn: Epic Prelude ADT [place]SY H[place]TER [address] Care Team Providers Care Pet Counselor Name Role Phone Aarti Ayala MD Primary Care Provider [phone] Social History Tobacco Use Types Packs/Day Years Used Date Smoking Tobacco: Never Assessed Comments Unknown Sex and Gender Information Value Date Recorded Sex Assigned at Not on file Legal Sex Female 4:49 AM POLICE ACADEMY PROGRAM COORDINATOR Gender Identity Not on file Sexual Orientation Not on file Plan of Treatment Health Maintenance Due Date Last Done Comments DTAP/TDAP/TD VACCINES (1 - Tdap) 1965 PNEUMOCOCCAL VACCINE 50+ YEARS (1 of 1 - PCV) 06/18/19 96 ZOSTER VACCINE (1 of 2) 1996 OSTEOPOROSIS SCREENING 2011 RSV VACCINE (60+ or ) (1 - 1-dose 75+ series) 2021 INFLUENZA VACCINE (#1) 2025 Care Teams Pet Counselor Relationship Specialty Start Date End Date Aarti Ayala MD [address] [place] [address] PCP - General 06/22/06
--- OUTSIDE RECORDS SUMMARY | 2025-04-07 23:21 | XMS_ITS | Encounter Summary ---
Author Organization [facility] Address [address] [place] [address] Attn: [place] [address] Care Team Providers Care Animal Husbandman Name Role Phone Aarti Ayala MD Primary Care Provider Encounter Details Date Type Department Care Team (Late st Contact Info) Description 10/19/1993 Outpatient Historical Sunil Guzman MD [address] [place] [phone] Social History Tobacco Use Types Packs/Day Years Used Date Smoking Tobacco: Never Assessed Comments Unknown Sex and Gender Information Value Date Recorded Sex Assigned at Not on file Legal Sex Female 4:49 AM EXHAUST AND MUFFLER REPAIRER Gender Identity Not on file Sexual Orientation Not on file documented as of this encounter Plan of Treatment Not on file documented as of this encounter Visit Diagnoses Not on filedocumented in this encounter Care Teams Animal Husbandman Relationship Specialty Start Date End Date Aarti Ayala MD [address] [place] [address] PCP - General 06/22/06 documented as of this encounter
[2025-04-08] VITALS (14 sets, daily range): BP systolic 140–204; BP diastolic 81–121; PULSE 75–81; RESP 12–20; O2SAT 91–97
[2025-04-08] MEDS: ONDANSETRON INJ 4 MG/2 ML VIAL IV PUSH (00:58)
[2025-04-08 01:02] LABS: Hematocrit 39.7 % (37.0-47.0); Hemoglobin 13.4 g/dL (12.0-15.0); Immature Granulocyte Percent A 1.7 % (0-0.5); Lymphocytes Absolute Auto 1.46 K/mm3 (0.9-3.2); Mean Corpuscular HGB Conc 33.8 g/dl (32-36); Mean Corpuscular Hemoglobin 29.1 pg (26-34); Mean Corpuscular Volume 86.3 fl (80-100); Nucleated Red Blood Cells Absolute Auto 0.000 K/mm3 (0.0-0.012); Nucleated Red Blood Cells Perc 0.0 % (0.0-0.2); Platelet Count Result 292 k/mm3 (150-375); Red Blood Count 4.60 M/mm3 (4.2-5.4); White Blood Count 24.8 K/mm3 (4.5-10.0)
[2025-04-08 01:15] LABS: Alanine Aminotransferase 26 U/L (6-35); Albumin Level 4.6 g/dL (3.5-5.1); Alkaline Phosphatase 49 U/L (38-126); Anion Gap 8 mmol/L (4-12); Aspartate Amino Transferase 26 U/L (14-36); Bilirubin,Total 0.3 mg/dL (0.2-1.3); Blood Urea Nitrogen 20 mg/dL (7-17); Calcium 9.1 mg/dL (8.4-10.2); Carbon Dioxide 27 mmol/L (22-30); Chloride 97 mmol/L (98-107); Estimated CRCL calculation 49 ml/min; Estimated Glomerular Filt Rate > 60; Glucose 141 mg/dL (65-110); Lipase 39 U/L (23-300); Potassium 3.3 mmol/L (3.4-5.0); Sodium 132 mmol/L (137-145); Total Protein 7.7 g/dL (6.3-8.2)
--- NOTE | 2025-04-08 01:36 | ED.RECABL ---
HPI - Recheck/Abnormal Lab/Rx General Chief Complaint: Recheck/Abnormal Lab/Rx Stated Complaint: htn, tijerina, n/v Time Seen by Provider: 04/08/25 00:50 History of Present Illness HPI narrative: 79-year-old female with a history of degenerative joint disease, hypertension. She takes losartan and verapamil for blood pressure. She had a knee injection bilaterally with cortisone several days ago and has been having symptoms including headache, nausea and several episodes of vomiting. She states her blood pressure was also been high. She states the symptoms mimic the last time she had cortisone injection to 1 of her joints and feels like she is hypersensitive steroid injections. Denies any traumatic injuries, no neurological deficits such as weakness, ataxia, sensory deficits, footdrop upper arm drop. No chest pain or shortness a breath. Was otherwise in her normal state of health. She attributes all her symptoms to the cortisone injections but she also had recent medication changes including starting low-dose trazodone for sleep and double dose of her verapamil for blood pressure control by her primary care provider several days ago. Related Data Allergies Allergy/AdvReac Type Severity Reaction Status Date / Time prednisone Allergy Unknown Redness of Verified 04/06/25 14:12 Skin amlodipine AdvReac Unknown lower Verified 04/06/25 14:12 extremity swelling codeine AdvReac Unknown Nausea and Verified 04/06/25 14:12 Vomiting Review of Systems Review of Systems: As reviewed above in HPI [facility] Past Medical History Medical History IDRIS (obstructive sleep apnea) Anxiety Arthritis Hemorrhoids Hypertension Vertigo Medial epicondylitis of right elbow GERD (gastroesophageal reflux disease) Surgical History Surgical History History of cardiac radiofrequency ablation Status post de Quervain's release surgery Status post hysterectomy Family History Family History Father Hypertension Family history of coronary artery disease Mother Hypertension Cerebrovascular accident Family history of diabetes mellitus in first degree relative Family history of coronary artery disease Sibling Family history of lung cancer Cerebrovascular accident Other Diabetes mellitus Family history of arthritis Social History Social History Years smoked: 1 Smoking status: Former smoker (less than 1ppd x 1 year - quit over 40 years ago) Tobacco type: cigarettes Second hand tobacco smoke exposure: No Smoking end date: 08/31/79 Alcohol intake: never Substance use: never Substance use type: does not use Do You Feel Safe in your Home?: Yes Lack of Transportation: No Lack of Food: Never True Current Housing: I Have Housing Concerned About Future Housing: No Difficulty Paying Gas/Electric Bills: No Difficulty Paying for Meds: No Currently Unemployed: YES Education: High School Diploma/GED Difficulty w/ Childcare or Family Care: No Living arrangements: alone Occupation/Education: retired Gender identity (if verbalized by the patient): Female Sexual Orientation (if Verbalized by the Patient): Straight or Heterosexual Exam Narrative: GENERAL: [Well-appearing, well-nourished, and in no acute distress.] HEAD: [Normocephalic, atraumatic.] EYES: [PERRLA and EOMI.] ENT: Nares clear, no rhinorrhea or epistaxis. Mucous membranes moist. NECK: Supple. CHEST: [Clear to auscultation. No respiratory distress.] HEART: [Regular rate and rhythm]. No murmur heard. [Normal peripheral pulses.] ABDOMEN: [Soft, nondistended], [nontender], [No rigidity or guarding] EXTREMITIES: Normal range of motion. [No edema.] SKIN: Warm, dry, no rash. NEURO: [No focal deficits]. Alert and oriented [x3.] PSYCH: [Normal mood and affect.] Course Vital Signs Vital signs: Vital Signs Temperature 36.3 C L 04/07/25 23:18 Pulse Rate 85 04/07/25 23:18 Respiratory Rate 16 04/07/25 23:18 Blood Pressure 172/73 H 04/07/25 23:18 Pulse Oximetry 91 04/07/25 23:18 Oxygen Delivery Room Air 04/07/25 23:18 Temperature 36.3 C L 04/07/25 23:18 Pulse Rate 81 04/08/25 02:40 Respiratory Rate 14 04/08/25 02:15 Blood Pressure 140/121 H 04/08/25 03:44 Pulse Oximetry 94 04/08/25 02:15 Oxygen Delivery Room Air 04/07/25 23:18 MDM - Recheck/Abnormal Lab/Rx MDM Narrative Medical decision making narrative: 79-year-old female with a history of degenerative joint disease, hypertension. She takes losartan and verapamil for blood pressure. She had a knee injection bilaterally with cortisone several days ago and has been having symptoms including headache, nausea and several episodes of vomiting. She states her blood pressure was also been high. She states the symptoms mimic the last time she had cortisone injection to 1 of her joints and feels like she is hypersensitive steroid injections. Denies any traumatic injuries, no neurological deficits such as weakness, ataxia, sensory deficits, footdrop upper arm drop. No chest pain or shortness a breath. Was otherwise in her normal state of health. She attributes all her symptoms to the cortisone injections but she also had recent medication changes including starting low-dose trazodone for sleep and double dose of her verapamil for blood pressure control by her primary care provider several days ago. Patient is mildly hypertensive 172/73 but no tachycardia, fever or hypoxia. She has an unremarkable neurological assessment but is stating she is nauseous and vomited several times from the headache she is experiencing she describes as a bandlike sensation behind both of her temples. States this feels identical to last time she had a headache and nauseousness with symptoms from her hydrocortisone injections from her spine. Given her unremarkable neurological assessment suspicion for intracranial pathology such as subarachnoid hemorrhage in stroke is unlikely but she has elevated blood pressure and nauseous with risk factors so CT of the head was obtained as well as a workup with blood work and imaging. She was given a medication for nausea and headache including Compazine, diphenhydramine, magnesium and a fluid bolus. Laboratory studies and imaging pending and she was placed on new business clerk and pulse oximetry. Patient's workup shows a leukocytosis likely reactive to the steroid as she has no infection signs or symptoms. Normal hemoglobin, normal platelets. Electrolytes are largely unremarkable. Normal kidney function, glucose mildly elevated also likely secondary to steroid use. Normal LFTs. Urinalysis with some white blood cells but no bacteria and patient denies any urinary complaints during repeat evaluation. No need for treatment at this time. CT scan of the head shows no intracranial findings. No hemorrhage or abnormal fluid collections. No stroke or lesions. Re-evaluated the patient and she feels much improved. Headache is gone away and blood pressures improved. She is safe for stable discharge home at this time and encouraged to follow-up with regular primary care provider and manage her blood pressure with her doctor's. No indications to start her on new antihypertensive regimen at this time and as her body metabolize the steroids the symptoms should regina and we discussed return precautions as well. Medical Records Attestation: I reviewed the patient's medical records. Lab Data Attestation: I reviewed the patient's lab results. 04/08/25 00:52 04/08/25 00:52 Labs: Lab Results 04/08/25 04/08/25 Range/Units 00:52 02:51 WBC 24.8 H (4.5-10.0) K/mm3 RBC 4.60 (4.2-5.4) M/mm3 Hgb 13.4 (12.0-15.0) g/dL Hct 39.7 (37.0-47.0) % MCV 86.3 (80-100) fl MCH 29.1 (26-34) pg MCHC 33.8 (32-36) g/dl RDW 12.7 (11.5-14.5) % Plt Count 292 (150-375) k/mm3 MPV 9.5 (7.4-10.4) fl Immature Gran % (Auto) 1.7 H (0-0.5) % Neut % (Auto) 89.0 H (45.5-73.1) % Lymph % (Auto) 5.9 L (18.3-44.2) % Crisp % (Auto) 3.3 (2.6-8.5) % Eos % (Auto) 0.0 (0-4.4) % Baso % (Auto) 0.1 L (0.2-1.2) % Lymph # (Auto) 1.46 (0.9-3.2) K/mm3 Crisp # (Auto) 0.8 H (0.1-0.6) K/mm3 Eos # (Auto) 0.0 (0-0.3) K/mm3 Baso # (Auto) 0.0 (0.0-0.1) K/mm3 Abs Immat Gran (auto) 0.41 H (0.00-0.031) K/mm3 Absolute Neuts (auto) 22.1 H (1.3-6.7) K/mm3 Absolute Nucleated RBC 0.000 (0.0-0.012) K/mm3 Nucleated RBC % 0.0 (0.0-0.2) % Sodium 132 L (137-145) mmol/L Potassium 3.3 L (3.4-5.0) mmol/L Chloride 97 L (98-107) mmol/L Carbon Dioxide 27 (22-30) mmol/L Anion Gap 8 (4-12) mmol/L BUN 20 H (7-17) mg/dL Creatinine 0.89 (0.7-1.0) mg/dL Estim Creat Clear Calc 49 ml/min Estimated GFR > 60 (59 - ) Glucose 141 H (65-110) mg/dL Calcium 9.1 (8.4-10.2) mg/dL Total Bilirubin 0.3 (0.2-1.3) mg/dL AST 26 (14-36) U/L ALT 26 (6-35) U/L Alkaline Phosphatase 49 (38-126) U/L Total Protein 7.7 (6.3-8.2) g/dL Albumin 4.6 (3.5-5.1) g/dL Lipase 39 (23-300) U/L Urine Color Yellow (Yellow) Urine Appearance Clear (Clear) Urine pH 6.5 (5.0-9.0) Ur Specific [place] 1.016 (1.001-1.035) Urine Protein 1+ H (Negative) mg/dL Urine Glucose (UA) Negative (Negative) mg/dL Urine Ketones Negative (Negative) mg/dL Ur Blood (Man) Negative (Negative) Urine Nitrate Negative (Negative) Urine Bilirubin Negative (Negative) Urine Urobilinogen 0.2 (<2.0) mg/dL Leukocyte Esterase Rfl 2+ H (Negative) AURA/UL Urine RBC 0-2 (0-2) /hpf Urine WBC 21-50 H (0-3) /hpf Ur Squamous Epith Cells None seen (Few) /hpf Urine Bacteria None seen /hpf Urine Casts 0-2 Imaging Data Attestation: I personally reviewed and interpreted this imaging study as follows: My impression: No acute finding Discharge Plan Discharge Clinical Impression: Headache, Hypertension, Medication side effect Patient Disposition: Home Condition: Stable Instructions: Antibiotic Form, Acute Headache (DC), Hypertension (ED) Additional Instructions: Your CT scan is normal, laboratory studies show some reaction to the steroids that you are injected with but no emergent concerns today. Your blood pressure should improve and symptoms should resolve as your body metabolize the steroids. We will send you home with some nausea controlling medications such as Zofran and in the event of her repeat headache he can take high strength anti-inflammatory such as 800 mg (4 tablets of 200 mg ibuprofen) and 1000 mg extra-strength Tylenol up to every 8 hours as needed. Return with any emergent concerns otherwise follow-up with regular doctors. Speak to your doctor about blood pressure management and changing her regimen but no need to adjust your medications at this time. Patient Language: East Timorese Prescriptions: New ondansetron 4 mg tablet,disintegrating 4 mg PO Q8H PRN (Reason: nausea and vomiting) Qty: 14 0RF No Action losartan 100 mg tablet 100 mg PO DAILY Qty: 90 3RF verapamil 240 mg tablet extended release 240 mg PO DAILY Qty: 90 1RF trazodone 50 mg tablet 25 mg PO QHS PRN (Reason: insomnia) Qty: 30 0RF meloxicam 15 mg tablet See Rx Instructions .ROUTE .COMPLEX Qty: 30 1RF Dose Instruction: TAKE 1 TABLET BY MOUTH EVERY DAY Rx Instructions: TAKE 1 TABLET BY MOUTH EVERY DAY fluticasone propionate 50 mcg/actuation spray,suspension 1 spray intranasal DAILY Qty: 16 2RF Rx Instructions: administer into each nostril albuterol sulfate 90 mcg/actuation HFA aerosol inhaler 1 - 2 puff inhalation Q4-6H PRN (Reason: shortness of breath or wheezing) Qty: 8.5 0RF omeprazole 40 mg capsule,delayed release(DR/EC) See Rx Instructions .ROUTE .COMPLEX Qty: 90 2RF Dose Instruction: TAKE 1 CAPSULE BY MOUTH EVERY DAY Rx Instructions: TAKE 1 CAPSULE BY MOUTH EVERY DAY levothyroxine 112 mcg tablet 112 mcg PO .qod Qty: 90 2RF Rx Instructions: alternating w/ 100 mcg potassium chloride [Klor-Con M10] 10 mEq tablet,ER particles/crystals See Rx Instructions .ROUTE .COMPLEX Qty: 90 2RF Dose Instruction: TAKE 1 TABLET BY MOUTH EVERY DAY Rx Instructions: TAKE 1 TABLET BY MOUTH EVERY DAY pravastatin 20 mg tablet See Rx Instructions .ROUTE .COMPLEX Qty: 90 3RF Dose Instruction: TAKE 1 TABLET BY MOUTH EVERY DAY Rx Instructions: TAKE 1 TABLET BY MOUTH EVERY DAY hydrochlorothiazide 25 mg tablet See Rx Instructions .ROUTE .COMPLEX Qty: 90 2RF Dose Instruction: TAKE ONE TABLET BY MOUTH ONCE DAILY Rx Instructions: TAKE ONE TABLET BY MOUTH ONCE DAILY Follow-up/Referrals: Neftali Ocampo MD [Primary Care Provider] - Time of Disposition: 03:55
[2025-04-08] MEDS: PROCHLORPERAZINE EDISYLATE 10 MG/2 ML VIAL IV PUSH (01:45)
[2025-04-08] MEDS: SODIUM CHLORIDE 0.9% IV 1,000 ML 999 ML IV CONT (01:45)
[2025-04-08] MEDS: MAGNESIUM SULF 2 GM/WATER 50ML 2 GM/50 ML BAG IVPB (01:46)
[2025-04-08 03:05] LABS: Add Urine Microscopic? YES; Appearance Urine Clear (Clear); Glucose Urine UA Negative (Negative); Leukocyte Esterase Ur 2+ LEU/UL (Negative); Nitrate Urine Negative (Negative); Non Pathogenic Casts 0-2; Specific Grav Ur 1.016 (1.001-1.035)
== END 2025-04-08 04:37 | disposition home or self-care (01) ==
PROVIDERS: Emergency Medicine; Emergency Provider Student in an Organized Health Care Education/Training Program; PCP Family Medicine
DX: R51.9 Headache, unspecified (principal); T50.905A Adverse effect of unspecified drugs, medicaments and biological substances, initial encounter; I10 Essential (primary) hypertension; G47.33 Obstructive sleep apnea (adult) (pediatric); F41.9 Anxiety disorder, unspecified; K21.9 Gastro-esophageal reflux disease without esophagitis
CPT/HCPCS: 36415; 70450; 80053; 81001; 83690; 85025; 87086; 96365; 96375; 99284; J0780; J1200; J2405; J3475; J7030

== ENCOUNTER 2025-05-04 11:54 | Outpatient (CLI) | payer MEDICARE, SELFPAY ==
--- OUTSIDE RECORDS SUMMARY | 2025-05-04 12:23 | XMS_ITS | Clinical Summary ---
Author Organization [facility] Address [address] [place] [address] Care Team Providers Care Motor Generator Set Operator Name Role Phone Neftali Ocampo MD Primary Care Provider [phone] Source Comments [facility],non-owned Affiliates and Associated Physician Practices is amultiple site organization consisting of ambulatory clinics and hospital sitesin [place], [place], [place] and [place]. This disclosure is being madepursuant to the Care Everywhere program and may not contain all information available regarding this patient. Last updated 18.[facility] Allergies Active Allergy Reactions Criticality Noted Date [...] on file Legal Sex Female 5:15 PM MOBILE PET GROOMER Gender Identity Not on file Sexual Orientation Not on file Last Filed Vital Signs Vital Sign Reading Time Taken Comments Blood Pressure 136/78 07/31/2017 1:19 PM MOBILE PET GROOMER Pulse 62 07/31/2017 1:19 PM MOBILE PET GROOMER Temperature 36.8 C (98.2 F) 07/31/2017 1:19 PM MOBILE PET GROOMER Respiratory Rate 12 07/31/2017 1:19 PM MOBILE PET GROOMER Oxygen Saturation 96% 07/31/2017 1:19 PM MOBILE PET GROOMER Inhaled Oxygen Concentration - - Weight 78.4 kg (172 lb 14.4 oz) 07/31/2017 1:19 PM MOBILE PET GROOMER Height 165.1 cm (5' 5) 07/31/2017 1:19 PM MOBILE PET GROOMER Body Mass Index 28.77 07/31/2017 1:19 PM MOBILE PET GROOMER Plan of Treatment Health Maintenance Due Date [...] to complete this topic Insurance MEDICARE MEDICARE [facility] Care Teams Motor Generator Set Operator Relationship Specialty Start Date End Date Neftali Ocampo MD [address] [place] [address] PCP - General 08/28/11
--- OUTSIDE RECORDS SUMMARY | 2025-05-04 12:23 | XMS_ITS | Encounter Summary ---
Author Organization [facility] Address [address] [place] [address] Attn: [place] [address] Care Team Providers Care Flume Ride Operator Name Role Phone Aarti Ayala MD Primary Care Provider Encounter Details Date Type Department Care Team (Late st Contact Info) Description 05/30/1992 Outpatient Historical Sunil Guzman MD [address] [place] [id number] Social History Tobacco Use Types Packs/Day Years Used Date Smoking Tobacco: Never Assessed Comments Unknown Sex and Gender Information Value Date Recorded Sex Assigned at Not on file Legal Sex Female 4:49 AM CABLE ENGINEER OUTSIDE PLANT Gender Identity Not on file Sexual Orientation Not on file documented as of this encounter Plan of Treatment Not on file documented as of this encounter Visit Diagnoses Not on filedocumented in this encounter Care Teams Flume Ride Operator Relationship Specialty Start Date End Date Aarti Ayala MD [address] [place] [id number] PCP - General 06/22/06 documented as of this encounter
--- OUTSIDE RECORDS SUMMARY | 2025-05-04 12:23 | XMS_ITS | Clinical Summary ---
Author Organization [facility] Address [address] Attn: Epic Prelude ADT [place] [address] Care Team Providers Care District Resource Officer Name Role Phone Aarti Ayala MD Primary Care Provider [phone] Social History Tobacco Use Types Packs/Day Years Used Date Smoking Tobacco: Never Assessed Comments Unknown Sex and Gender Information Value Date Recorded Sex Assigned at Not on file Legal Sex Female 4:49 AM FORMER HAND Gender Identity Not on file Sexual Orientation Not on file Plan of Treatment Health Maintenance Due Date Last Done Comments DTAP/TDAP/TD VACCINES (1 - Tdap) 1965 PNEUMOCOCCAL VACCINE 50+ YEARS (1 of 1 - PCV) 06/18/19 96 ZOSTER VACCINE (1 of 2) 1996 OSTEOPOROSIS SCREENING 2011 RSV VACCINE (60+ or ) (1 - 1-dose 75+ series) 2021 INFLUENZA VACCINE (#1) 2025 Care Teams District Resource Officer Relationship Specialty Start Date End Date Aarti Ayala MD [address] [place] [phone] PCP - General 06/22/06
--- OUTSIDE RECORDS SUMMARY | 2025-05-04 12:23 | XMS_ITS | Encounter Summary ---
Author Organization [facility] Address [address] [place] [address] Care Team Providers Care Sports Attorney Name Role Phone Aarti Ayala MD Primary Care Provider [phone] Encounter Details Date Type Department Care Team (Late st Contact Info) Description 06/22/2006 Outpatient Historical [facility] Mario Penn MD NO ADDRESS ON FILE SENSRY HEARNG LOSS,BILAT (Primary Dx) Social History Tobacco Use Types Packs/Day Years Used Date Smoking Tobacco: Never Assessed Comments Unknown Sex and Gender Information Value Date Recorded Sex Assigned at Not on file Legal Sex Female 4:49 AM INSOLVENCY CONSULTANT Gender Identity Not on file Sexual Orientation Not on file documented as of this encounter Plan of Treatment Not on file documented as of this encounter Visit Diagnoses Diagnosis Sensory hearing loss, bilateral- Primary documented in this encounter Care Teams Sports Attorney Relationship Specialty Start Date End Date Aarti Ayala MD [address] [place] [address] PCP - General 06/22/06 documented as of this encounter
--- OUTSIDE RECORDS SUMMARY | 2025-05-04 12:23 | XMS_ITS | Encounter Summary ---
Author Organization [facility] Address [address] [place] [address] Care Team Providers Care Plaster Tender Name Role Phone Neftali Ocampo MD Primary Care Provider [phone] Encounter Details Date Type Department Care Team (Late st Contact Info) Description 09/26/2020 Lab Requisition [facility] [address] [place] [id number] Vj Barkley MD [address] [place] [address] Social History Tobacco Use Types Packs/Day Years Used Date Smoking Tobacco: Former Cigarettes Q uit: 08/28/1976 Smokeless Tobacco: Never Alcohol Use Standard Drinks/Week Comments No 0 (1 standard drink = 0.6 oz pur e alcohol) Comments Unknown Sex and Gender Information Value Date Recorded Sex Assigned at Not on file Legal Sex Female 5:15 PM SLIP LASTER Gender Identity Not on file Sexual Orientation Not on file documented as of this encounter Plan of Treatment Not on file documented as of this encounter Procedures Procedure Name Priority Date/Time Associated Diagnosis Comments DERMATOPATHOLOGY Routine 09/25/2020 12:0 0 AM SLIP LASTER documented in this encounter Results * DERMATOPATHOLOGY (09/25/2020 12:00 AM SLIP LASTER) Case Report Dermatopathology Report Case: [id number] Authorizing Provider: Vj Barkley MD Collected: 09/25/2020 12:00 AM Ordering Location: [facility] Received: 09/26/2020 12:34 PM Pathologist: Bonifacio Mccarthy MD Specimens: A) - Skin, left upper outer arm B) - Skin, right lateral upper back 2:20 PM [facility] Final Diagnosis Specimen A. 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 SKIN, right lateral upper back: BASAL CELL CARCINOMA, NODULAR TYPE (C44.519) 1 2:20 PM [facility]ER[facility]ATH[facility] at [address] Clinical History A-B: R/O BCC. 2:20 PM [facility] Gross Description Specimen A: Received is one formalin filled container labeled with the patient's name and designated left upper outer arm. The specimen consists of a curettage and desiccation biopsy measuring [id number]. Jar 0. Specimen B: Received is one formalin filled container labeled with the patient's name and designated right lateral upper back. The specimen consists of a curettage and desiccation biopsy measuring [id number]. Jar 0. 1 2:20 PM [facility] Microscopic Description Specimen A. SKIN, [...] ratio and peripheral palisading. 1 2:20 PM [facility] Disclaimer An external and internal [...] purposes. Billing Codes Specimen Charges Stain Charges [id number] 1 1 1 2:20 PM [facility] Embedded Images 2:20 PM [facility] Pathology/Cytology TISSUE SPECIMEN FROM SKIN / Unknown 09/25/2020 09/26/2020 12:34 PM SLIP [facility]STER Miscellaneous samples (specimen) TISSUE SPECIMEN FROM SKIN / Unknown 09/25/2020 09/26/2020 12:34 PM SLIP [facility]STER Vj Barkley MD LAB - PATHOLOGY/CYTOLOGY ORD ERABLES Final Result DERMATOPATHOLOGY LABORATORY [facility] - Department of Dermatology [facility] [address] [place] [address], [address] [phone] documented in this encounter Visit Diagnoses Not on filedocumented in this encounter Care Teams Plaster Tender Relationship Specialty Start Date End Date Neftali Ocampo MD [address] [place] [address] PCP - General 08/28/11 documented as of this encounter
--- OUTSIDE RECORDS SUMMARY | 2025-05-04 12:23 | XMS_ITS | Clinical Summary ---
Author Organization [facility] D Address [address] [place] [address] Care Team Providers Care Precision Mechanical Instrument Maker Name Role Phone Neftali Ocampo MD [...] 08/14/2020 Assessment & Plan (08/14/2020 5:08 PM FUR DRY CLEANER HAND): EKG shows incomplete right bundle branch block and nonspecific T-wave abnormalities. Because of this, a stress test without imaging would not be helpful. Jaw pain 08/14/2020 Assessment & Plan (08/14/2020 5:07 PM FUR DRY CLEANER HAND): Nonexertional episodes of left jaw pain in [...] Hypothyroidism Assessment & Plan (08/14/2023 10:43 AM FUR DRY CLEANER HAND): Patient on Levothyroxine for many years. Patient is clinically euthyroid TSH was normal at 3.4 on 07/12/23 Plan: Continue Levothyroxine 112 mcg/day The proper way of taking Levothyroxine reviewed with patient. She will follow up with new Maintenance Journeyman in 6 month Assessment & Plan (02/12/2023 [...] Hypercholesteremia Assessment & Plan (08/14/2020 5:07 PM FUR DRY CLEANER HAND): Despite a previous history of not tolerating [...] diet Assessment & Plan (08/14/2020 5:07 PM FUR DRY CLEANER HAND): Blood pressure is adequately controlled on current [...] drink = 0.6 oz pur e alcohol) [facility] Utilities Answer Date Recorded In the past 12 months has th e electric, gas, oil, or water company threatened to shut off services in your home? No 07/13/2023 Social Connection and Isolation Panel Answer Date Recorded In a typical week, [...] any clubs o r organizations such as caodaism groups, unions, fraternal or athletic groups, or [...] on file Legal Sex Female 11:32 PM FUR DRY CLEANER HAND Gender Identity Not on file Sexual Orientation Not on file Obstetrics History Last Filed Vital Signs Vital Sign Reading Time Taken Comments Blood Pressure 118/80 10/03/2024 11:10 AM FUR DRY CLEANER HAND Pulse 71 10/03/2024 11:10 AM FUR DRY CLEANER HAND Temperature 36.4 C (97.6 F) 07/13/2023 7:46 AM FUR DRY CLEANER HAND Respiratory Rate 14 07/13/2023 7:46 AM FUR DRY CLEANER HAND Oxygen Saturation 94% 10/03/2024 11:10 AM FUR DRY CLEANER HAND Inhaled Oxygen Concentration - - Weight 83.1 kg (183 lb 1.6 oz) 10/03/2024 11:10 AM FUR DRY CLEANER HAND Height 165.1 cm (5' 5) 10/03/2024 11:10 AM FUR DRY CLEANER HAND Body Mass Index 30.47 10/03/2024 11:10 AM FUR DRY CLEANER HAND Plan of Treatment Health Maintenance Due Date Last Done Comments Depression Screening 1945 Hepatitis C Screening 1945 Osteoporosis Screening-Bone Density Scan 1945 DTaP/Tdap/Td Vaccine (1 - Tdap) 1957 Hepatitis B Screening 1964 Zoster Vaccine (1 of 2) 1996 Well Visit 65+ 2011 Pneumococcal vaccine 65+ (2 of 2 - PCV20 or PCV21) 09/26/2016 09/26/2015 Fall Risk Assessment 07/13/2024 07/13/2023 Influenza Vaccine (#1) 2025 09/25/2015, 2012 Insurance MEDICARE MEDICARE MEDICARE [place] MEDICARE SUPPLEMENT Advance Directives For more information, please contact: [phone] * Full Code (Latest Code Status on File) Date Activated Date Inactivated Comments 07/12/2023 5:18 PM 07/13/2023 2:43 PM Care Teams Precision Mechanical Instrument Maker Relationship Specialty Start Date End Date Neftali Ocampo MD [address] [facility] [address] [place] [address] PCP - General 12/11/11
--- OUTSIDE RECORDS SUMMARY | 2025-05-04 12:23 | XMS_ITS | Encounter Summary ---
Author Organization [facility] Address [address] [facility] [place] [address] Care Team Providers Care Supervisor Kosher Dietary Service Name Role Phone Neftali Ocampo MD Primary Care Provider [phone] Encounter Details Date Type Department Care Team (Late st Contact Info) Description 01/22/2022 Lab Requisition [facility] Care DermPath Lab [address] [facility] [place] [id number] Vj Barkley MD [address] [place] [address] Social History Tobacco Use Types Packs/Day Years Used Date Smoking Tobacco: Former Cigarettes Q uit: 08/28/1976 Smokeless Tobacco: Never Alcohol Use Standard Drinks/Week Comments No 0 (1 standard drink = 0.6 oz pur e alcohol) Comments Unknown Sex and Gender Information Value Date Recorded Sex Assigned at Not on file Legal Sex Female 5:15 PM CORPORATE ACCOUNTING MANAGER Gender Identity Not on file Sexual Orientation Not on file documented as of this encounter Plan of Treatment Not on file documented as of this encounter Procedures Procedure Name Priority Date/Time Associated Diagnosis Comments DERMATOPATHOLOGY Routine 01/21/2022 12:0 0 AM CDT documented in this encounter Results * DERMATOPATHOLOGY (01/21/2022 12:00 AM CDT) Case Report Dermatopathology Report Case: [id number] Authorizing Provider: Vj Barkley MD Collected: 01/21/2022 12:00 AM Ordering Location: [facility] DermPath Lab Received: 01/22/2022 01:56 [...] specimen consists of a shave removal measuring [id number] and it is inked. Jar 0. 2:57 [...] characteristic determined by the Dermatopathology Laboratory at [facility], directed by Dr. Cheo Mccarthy. These tests need not be, and therefore are not, approved by the [place] Food and Drug Administration. The tests are used for clinical purposes. Billing Codes Specimen Charges Stain Charges 02605 1 2 2:57 PM CDT DERMATOPATHOLOGY LABORATORY Embedded Images 2 2:57 PM CDT DERMATOPATHOLOGY LABORATORY Pathology/Cytolog y TISSUE SPECIMEN FROM SKIN / Unknown 01/21/2022 01/22/2022 1:56 PM CDT Vj Barkley MD LAB - PATHOLOGY/CYTOLOGY ORD ERABLES Final Result DERMATOPATHOLOGY LABORATORY [facility] - Department of Dermatology [facility] Specialized Medicine [facility], 3rd Floor [address] [phone] documented in this encounter Visit Diagnoses Not on filedocumented in this encounter Care Teams Supervisor Kosher Dietary Service Relationship Specialty Start Date End Date Neftali Ocampo MD [address] [place] [address] PCP - General 08/28/11 documented as of this encounter
--- OUTSIDE RECORDS SUMMARY | 2025-05-04 12:23 | XMS_ITS | Encounter Summary ---
Author Organization [facility] Address [address] [facility] [place] [address] Care Team Providers Care Beef Specialist Name Role Phone Neftali Ocampo MD Primary Care Provider [phone] Encounter Details Date Type Department Care Team (Late st Contact Info) Description 07/07/2019 Lab Requisition [facility] DermPath Lab [address] [facility] [place] [id number] Vj Barkley MD [address] [place] [address] Social History Tobacco Use Types Packs/Day Years Used Date Smoking Tobacco: Former Cigarettes Q uit: 08/28/1976 Smokeless Tobacco: Never Alcohol Use Standard Drinks/Week Comments No 0 (1 standard drink = 0.6 oz pur e alcohol) Comments Unknown Sex and Gender Information Value Date Recorded Sex Assigned at Not on file Legal Sex Female 5:15 PM CUSTOMER ADVOCATE Gender Identity Not on file Sexual Orientation Not on file documented as of this encounter Plan of Treatment Not on file documented as of this encounter Procedures Procedure Name Priority Date/Time Associated Diagnosis Comments DERMATOPATHOLOGY Routine 07/06/2019 12:0 0 AM CUSTOMER ADVOCATE documented in this encounter Results * DERMATOPATHOLOGY (07/06/2019 12:00 AM CUSTOMER ADVOCATE) Case Report Dermatopathology Report Case: [id number] Authorizing Provider: Vj Barkley MD Collected: 07/06/2019 12:00 AM Ordering Location: [facility] DermPath Lab Received: 07/07/2019 01:58 PM Pathologist: Tiffany Gibbons MD Specimens: A) - Skin, philtrum at edge of frances lip B) - Skin, right upper back 1:24 PM [facility] DERMATOPATHOLOGY LABORATORY Final Diagnosis Specimen A. 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 SKIN, right upper back: BASAL CELL CARCINOMA, SUPERFICIAL MULTIFOCAL (C44.519) 1:24 PM [facility] DERMATOPATHOLOGY LABORATORY at [address] CUSTOMER ADVOCATE Clinical History A: R/O SCC. B: R/O BCC. 1:24 PM [facility] DERMATOPATHOLOGY LABORATORY Gross Description Specimen A: Received is one formalin filled container labeled with the patient's name and designated philtrum at edge of frances lip. The specimen consists of a shave biopsy measuring [id number]. Jar 0. Specimen B: Received is one formalin filled container labeled with the patient's name and designated right upper back. The specimen consists of a curettage and desiccation biopsy measuring [id number]. Jar 0. 1:24 PM [facility] DERMATOPATHOLOGY LABORATORY Microscopic Description Specimen A. [...] cytoplasmic ratio and peripheral palisading. 1:24 PM [facility] DERMATOPATHOLOGY LABORATORY Disclaimer An external and internal positive and negative controls are appropriate for the histochemical, immunohistochemical and immunofluorescence stain(s) in this case (if any), except where stated explicitly. The performance characteristics of the stain(s) cited in this report were developed and its performance characteristic determined by the Dermatopathology Laboratory at [facility], directed by Dr. Cheo Mccarthy. These tests need not be, and therefore are not, approved by the [place] Food and Drug Administration. The tests are used for clinical purposes. Billing Codes Specimen Charges Stain Charges 14948 24546 1 1 9 1:24 PM CUSTOMER ADVOCATE DERMATOPATHOLOGY LABORATORY Embedded Images 9 1:24 PM CUSTOMER ADVOCATE DERMATOPATHOLOGY LABORATORY Pathology/Cytology TISSUE SPECIMEN FROM SKIN / Unknown 07/06/2019 07/07/2019 1:58 PM CUSTOMER ADVOCATE Miscellaneous samples (specimen) TISSUE SPECIMEN FROM SKIN / Unknown 07/06/2019 07/07/2019 1:58 PM CUSTOMER ADVOCATE Vj Barkley MD LAB - PATHOLOGY/CYTOLOGY ORD ERABLES Final Result DERMATOPATHOLOGY LABORATORY [facility] - Department of Dermatology [address] [place] [address], 5th Floor Lab [address] [phone] documented in this encounter Visit Diagnoses Not on filedocumented in this encounter Care Teams Beef Specialist Relationship Specialty Start Date End Date Neftali Ocampo MD [address] [place] [address] PCP - General 08/28/11 documented as of this encounter
--- OUTSIDE RECORDS SUMMARY | 2025-05-04 12:23 | XMS_ITS | Encounter Summary ---
Author Organization [facility] Address [address] [place] [address] Care Team Providers Care Poke In Name Role Phone Neftali Ocampo MD Primary Care Provider [phone] Encounter Details Date Type Department Care Team (Late st Contact Info) Description 02/04/2023 Lab Requisition [facility] - DermPath Lab [address] [facility] [place] [phone] Vj Barkley MD [address] [place] [address] Social History Tobacco Use Types Packs/Day Years Used Date Smoking Tobacco: Former Cigarettes Q uit: 08/28/1976 Smokeless Tobacco: Never Alcohol Use Standard Drinks/Week Comments No 0 (1 standard drink = 0.6 oz pur e alcohol) Comments Unknown Sex and Gender Information Value Date Recorded Sex Assigned at Not on file Legal Sex Female 5:15 PM SENIOR TECHNICAL SUPPORT ANALYST Gender Identity Not on file Sexual Orientation Not on file documented as of this encounter Plan of Treatment Not on file documented as of this encounter Procedures Procedure Name Priority Date/Time Associated Diagnosis Comments DERMATOPATHOLOGY Routine 02/03/2023 12:0 0 AM CDT documented in this encounter Results * DERMATOPATHOLOGY (02/03/2023 12:00 AM CDT) Case Report Dermatopathology Report Case: [id number] Authorizing Provider: Vj Barkley MD Collected: 02/03/2023 12:00 AM Ordering Location: [facility] DermPath Lab Received: 02/04/2023 01:40 [...] specimen consists of a shave removal measuring [id number] mm. Jar 0. 3:54 PM CDT DERMATOPATHOLOGY [...] characteristic determined by the Dermatopathology Laboratory at [facility], directed by Dr. Cheo Mccarthy. These tests need not be, and therefore are not, approved by the [place] Food and Drug Administration. The tests are used for clinical purposes. Billing Codes Specimen Charges Stain Charges 46470 1 01960 1 3:54 PM CDT DERMATOPATHOLOGY LABORATORY Embedded Images 3:54 PM CDT DERMATOPATHOLOGY LABORATORY Pathology/Cytolog y TISSUE SPECIMEN FROM SKIN / Unknown 02/03/2023 02/04/2023 1:40 PM CDT us Vj Barkley MD LAB - PATHOLOGY/CYTOLOGY ORD ERABLES Final Result DERMATOPATHOLOGY LABORATORY [facility] - Department of Dermatology [address], [address] [phone] documented in this encounter Visit Diagnoses Not on filedocumented in this encounter Care Teams Poke In Relationship Specialty Start Date End Date Neftali Ocampo MD [address] [place] [address] PCP - General 08/28/11 documented as of this encounter
--- OUTSIDE RECORDS SUMMARY | 2025-05-04 12:23 | XMS_ITS | Encounter Summary ---
Author Organization [facility] Address [address] [place] [address] Attn: [place] [address] Care Team Providers Care Packer Denture Name Role Phone Aarti Ayala MD Primary Care Provider [phone] Encounter Details Date Type Department Care Team (Late st Contact Info) Description 10/19/1993 Outpatient Historical Sunil Guzman MD [address] [place] [phone] Social History Tobacco Use Types Packs/Day Years Used Date Smoking Tobacco: Never Assessed Comments Unknown Sex and Gender Information Value Date Recorded Sex Assigned at Not on file Legal Sex Female 4:49 AM STRETCHER OPERATOR Gender Identity Not on file Sexual Orientation Not on file documented as of this encounter Plan of Treatment Not on file documented as of this encounter Visit Diagnoses Not on filedocumented in this encounter Care Teams Packer Denture Relationship Specialty Start Date End Date Aarti Ayala MD [address] [place] [phone] PCP - General 06/22/06 documented as of this encounter
[2025-05-04 13:12] LABS: Hematocrit 42.1 % (37.0-47.0); Hemoglobin 13.7 g/dL (12.0-15.0); Immature Granulocyte Percent A 1.0 % (0-0.5); Mean Corpuscular HGB Conc 32.5 g/dl (32-36); Mean Corpuscular Hemoglobin 29.0 pg (26-34); Mean Corpuscular Volume 89.2 fl (80-100); Nucleated Red Blood Cells Perc 0.0 % (0.0-0.2); Platelet Count Result 311 k/mm3 (150-375); Red Blood Count 4.72 M/mm3 (4.2-5.4); White Blood Count 7.1 K/mm3 (4.5-10.0)
[2025-05-04 13:13] LABS: Hemoglobin A1C 5.9 % (<5.7); Lymphocytes Absolute Auto 1.83 K/mm3 (0.9-3.2); Nucleated Red Blood Cells Absolute Auto 0.000 K/mm3 (0.0-0.012)
[2025-05-04 13:26] LABS: Alanine Aminotransferase 26 U/L (6-35); Albumin Level 4.6 g/dL (3.5-5.1); Alkaline Phosphatase 51 U/L (38-126); Anion Gap 10 mmol/L (4-12); Aspartate Amino Transferase 45 U/L (14-36); Bilirubin,Total 0.4 mg/dL (0.2-1.3); Blood Urea Nitrogen 16 mg/dL (7-17); Calcium 9.8 mg/dL (8.4-10.2); Carbon Dioxide 30 mmol/L (22-30); Chloride 98 mmol/L (98-107); Cholesterol 216 mg/dL (0-200); Estimated Glomerular Filt Rate 51; Glucose 89 mg/dL (65-110); HDL Direct 41 mg/dL; Potassium 4.0 mmol/L (3.4-5.0); Sodium 138 mmol/L (137-145); Total Protein 7.8 g/dL (6.3-8.2); Triglycerides 265 mg/dL (<150)
[2025-05-04 14:07] LABS: Thyroid Stimulating Hormone 2.150 uIU/mL (0.465-4.680)
== END 2025-05-04 11:55 | disposition home or self-care (01) ==
PROVIDERS: PCP Family Medicine; Visit Provider Physician Assistant Medical
DX: E78.00 Pure hypercholesterolemia, unspecified (principal); I10 Essential (primary) hypertension; R73.01 Impaired fasting glucose
CPT/HCPCS: 36415; 80053; 80061; 83036; 84443; 85025